=== PATIENT | female | born 1950 | race African-American/Black ===

== ENCOUNTER 2017-11-09 13:31 | Inpatient (IN) | payer MEDICARE, MEDICAID ==
[2017-11-09 15:09] LABS: #Basophils 0.1 thou/uL (0.0-0.2); #Eosinphils 0.2 thou/uL (0.0-0.7); #Lymphocytes 2.1 thou/uL (1.20-3.40); #Monocytes 0.5 thou/uL (0.11-0.59); %Eosinophils 2.1 % (0.0-10.0); %Lymphocytes 23.7 % (21.0-51.0); %Monocytes 5.6 % (0.0-10.0); %Neutrophils 67.5 % (42.0-75.0); Hemoglobin 12.2 g/dL (12.0-16.0); Mean Corpuscular HGB CONC 32.6 g/dL (32.0-36.0); Mean Corpuscular Hemoglobin 30.8 pg (27.0-31.0); Mean Corpuscular Volume 94.3 fL (78.0-98.0); Mean Platelet Volume 7.9 fL (7.4-10.4); Platelet Count 153 thou/uL (130-400); RBC Distribution Width 12.2 % (11.5-14.5); Red Blood Cell (RBC) Count 3.96 mill/uL (4.20-5.40); White Blood Cell (WBC) Count 8.9 thou/uL (4.8-10.8)
[2017-11-09 15:31] LABS: ALT (SGPT) 7 U/L (8-55); AST (SGOT) 13 U/L (5-34); Albumin 3.9 g/dL (3.4-4.8); Alkaline Phosphatase 107 U/L (40-150); Anion Gap 14 mmol/L (10-20); BUN (Urea Nitrogen) 27 mg/dL (9.8-20.1); Bilirubin, Total 0.3 mg/dL (0.2-1.2); Calc. Creatinine Clearance 0 mL/min (70-130); Calcium 9.5 mg/dL (7.8-10.44); Carbon Dioxide 26 mmol/L (23-31); Chloride 106 mmol/L (98-107); Estimated GFR-MDRD 36; Globulin 3.4 g/dL (2.4-3.5); Glucose 102 mg/dL (80-115); Magnesium 1.8 mg/dL (1.6-2.6); Phosphorus 2.8 mg/dL (2.3-4.7); Potassium 3.7 mmol/L (3.5-5.1); Protein, Total 7.3 g/dL (6.0-8.3); Sodium 142 mmol/L (136-145)
[2017-11-09 15:36] LABS: CKMB 0.7 ng/mL (0-6.6); Troponin I Less than 0.010 ng/mL (< 0.028)
--- NOTE | 2017-11-09 16:49 | CT ---
CT OF THE BRAIN WITHOUT CONTRAST: 11/09/17 INDICATION: History of cerebellar and cerebral perfusion abnormality and CVA. COMPARISON: Prior exam dated 11/02/16. FINDINGS: There is severe chronic small vessel white matter ischemic change similar. There is generalized cereb ral and cerebellar atrophy which is stable. Septum pellucidum and third ventricle are stable. There i s a small lacunar infarct involving the left cerebellar hemisphere which is stable. Mastoid air cells and paranasal sinuses are clear. Skull is intact. IMPRESSION: 1. No acute intracranial abnormality. Chronic ischemic change as above. 2. Generalized cerebral and cerebellar atrophy. POS: [facility]
[2017-11-09] MEDS ORDERED: Ondansetron HCl/PF 4 MG/2 ML Vial IVP PRN (18:10)
[2017-11-09] MEDS ORDERED: Ondansetron ODT 4 MG TAB SL PRN (18:10)
[2017-11-09 18:22] VITALS: BMI 32.4
[2017-11-09] MEDS ORDERED: Acetaminophen 325 MG TAB PO PRN (19:06)
[2017-11-09] MEDS: Sodium Chloride 0.9% 1,000 ML IV SCH (20:59)
[2017-11-09] MEDS ORDERED: Amlodipine 5 MG TAB PO SCH (21:00)
[2017-11-10 00:04] LABS: Amphetamine Not Detected (NotDetected); Barbiturates Screen Not Detected (NotDetected); Benzodiazepine Screen Not Detected (NotDetected); Cocaine Metabolite Screen Not Detected (NotDetected); Medtox Control Line Valid? VALID (VALID); Medtox Reader # READER 1; Methadone Not Detected (NotDetected); Methamphetamine Not Detected (NotDetected); Opiate Screen Not Detected (NotDetected); Oxycodone Screen Not Detected (NotDetected); Phencyclidine (PCP) Not Detected (NotDetected); THC/Cannabinoid Screen Detected (NotDetected); Tricyclic Screen Not Detected (NotDetected)
--- NOTE | 2017-11-10 00:50 | HP ---
CHIEF COMPLAINT: Possible stroke symptoms. HISTORY OF PRESENT ILLNESS: The patient is a 67-year-old female with a history of chronic kidney disease, stage 3; and hypertension; who presented via the emergency department. The patient reports that 2 days ago she had an episode of left facial drooping, some dysarthria and some slight altered mental status. The patient was encouraged to come to the emergency department, but refused. However, today she was convinced to come in for evaluation. It appears she believes that her symptoms have essentially resolved. The patient has no complaints at this time other than a cough that has been nonproductive for about a week and states that she feels generally cold. REVIEW OF SYSTEMS: Negative through a 10-point review of systems including general, ENT, GI, CV, pulmonary, , skin, neuro, psych, and Endo are all negative other than those things mentioned in the history of present illness. PAST MEDICAL HISTORY: As noted, significant for hypertension; chronic kidney disease, stage 3; dyslipidemia. PAST SURGICAL HISTORY: Hysterectomy. FAMILY HISTORY: Father had hypertension and is alive at 87. Mother in her 60s with dementia. SOCIAL HISTORY: The patient smokes 1/2-3/4 pack of cigarettes per day and has done so for 38 years. She drinks alcohol on special occasions. She does admit to the use of marijuana type drugs from time to time. She is /divorce from her . She was with her brother and grandson in an apartment. She is a retired food crops farm hand. ALLERGIES: None. MEDICATIONS: Hydrochlorothiazide 25 mg p.o. q. day and amlodipine 5 mg p.o. q. day. PHYSICAL EXAMINATION: VITAL SIGNS: Temperature 98.4, pulse 70, respirations 20, O2 sat 99%, blood pressure is 157/87. GENERAL APPEARANCE: Age appropriate female. She is in no distress. She is awake, alert, oriented, pleasant, and cooperative. HEENT: PERRL. No OP lesions. NECK: Supple and symmetric with no carotid bruits. CARDIOVASCULAR: Regular without murmurs, gallops or rubs. LUNGS: Slightly diminished, but no wheezes, rales or rhonchi noted. ABDOMEN: Soft, nontender, nondistended, positive bowel sounds. EXTREMITIES: Warm and dry with no edema. NEUROLOGIC: Mild didadodyskinesia, but otherwise no focal deficits noted. IMAGING: CT scan of the brain shows no acute intracranial abnormalities with chronic ischemic changes, some generalized cerebral and cerebellar atrophy. LABORATORY DATA: Sodium 142, potassium 3.7, chloride 106, CO2 of 26, BUN is 27 , creatinine is 1.74, glucose 102, calcium 95, phosphorus 2.8, magnesium 1.8. AST 13, ALT 7. Troponin less than 0.01, albumin 3.9. Coags normal. CBC normal. IMPRESSION AND PLAN: 1. Acute neurologic changes which have essentially resolved at this point. Unclear if this was a transient ischemic attack or stroke, but there is no evidence at this point that she had a significant infarct on the CT scan. We will keep the patient on telemetry. She did have a previous echo revealing significant left atrial enlargement, so will need to worry about atrial fibrillation. We will obtain an echocardiogram again and ultrasound of her carotids. We will consult Neurology and check a urine drug screen. Assuming all those things are acceptable again possibly be discharged as early as tomorrow. 2. History of hypertension, going to continue with her amlodipine, but hold on the hydrochlorothiazide as she may be a little volume deplete. 3. Chronic kidney disease, stage 3. Her creatinine is slightly above her usual baseline. I will give her a little bit of fluids and check her again in the morning. DISPOSITION: The patient is a FULL CODE and her daughter and granddaughter are her surrogate decision maker should they be necessary. Her PCP is Dr. Owusu. ADITI
[2017-11-10 05:19] LABS: Anion Gap 10 mmol/L (10-20); BUN (Urea Nitrogen) 26 mg/dL (9.8-20.1); Calc. Creatinine Clearance 44 mL/min (70-130); Calcium 9.6 mg/dL (7.8-10.44); Carbon Dioxide 30 mmol/L (23-31); Chloride 106 mmol/L (98-107); Cholesterol 145 mg/dl (< 200 Desired); Estimated GFR-MDRD 42; Glucose 87 mg/dL (80-115); HDL Cholesterol 49 mg/dL (>60 Neg Risk); LDL Cholesterol, Calculated 79 mg/dL; Potassium 3.5 mmol/L (3.5-5.1); Sodium 142 mmol/L (136-145); Triglycerides 87 mg/dL (Less than 150)
[2017-11-10] MEDS ORDERED: Aspirin 325 MG TAB PO SCH (09:45)
--- NOTE | 2017-11-10 10:11 | CON ---
DATE OF CONSULTATION: 11/10/2017 NEUROLOGY CONSULTATION CONSULTING PHYSICIAN: Hospitalist Service. IMPRESSION: 1. Small vessel stroke with mild right-sided weakness and transient dysarthria. 2. Hypertension. 3. Extensive small vessel ischemic changes on CT scan. 4. Tobacco abuse. PLAN: 1. Aspirin 325 mg daily. 2. Lipitor 20 mg daily. 3. Discontinue smoking. Ms. Waddell is a 67-year-old black female with a known history of hypertension and mild renal insuffi ciency. She presented with a 2-day history of dysarthria. She did not note any new weakness or numb ness. There is no associated headache, nausea, vomiting, vertigo, double vision, confusion or altera tion of consciousness. Initial CT scan of the brain did not show any evidence of acute bleed, but th ere are extensive periventricular small vessel ischemic changes. Her EKG showed normal sinus rhythm. Carotid ultrasound and echocardiogram are pending. She has no past history of coronary artery dise ase. SOCIAL HISTORY: Positive for tobacco and marijuana use. FAMILY HISTORY: Noncontributory. MEDICATIONS: Reviewed. REVIEW OF SYSTEMS: Otherwise, negative. PHYSICAL EXAMINATION: GENERAL: A well-nourished middle-aged elderly lady in no distress. VITAL SIGNS: Blood pressure 120/73, pulse 56, respirations 12 and temperature 97.7. HEENT: Pupils equal and reactive. Conjunctivae are clear. Oropharynx clear. NECK: No lymphadenopathy. EXTREMITIES: No cyanosis. NEUROLOGIC: She is alert and appropriate. Her speech is fluent and clear. Cranial nerve exam shows some mild right nasal labial fold flattening. Motor exam shows a fix on arm roll on the right side. Sensation was intact to touch. [id number] movements were slightly dysmetric on the left. She can walk independently. Sensation was intact in the extremities. LABORATORY STUDIES: Unremarkable CBC. BUN 27, creatinine is 1.74, cholesterol ratio 3.0. SUMMARY: This is a 67-year-old woman with known history of hypertension who presents with transient dysarthria and has some mild residual right-sided weakness. This is likely secondary to small vessel disease. Agree with the workup. Start her on antiplatelet and statin. Would be happy to follow up with her as an outpatient.
[2017-11-10] MEDS: Sodium Chloride 0.9% 1,000 ML IV SCH (11:30)
--- NOTE | 2017-11-10 13:45 | ULT ---
BILATERAL CAROTID DUPLEX ULTRASOUND INCLUDING COLOR AND SPECTRAL DOPPLER IMAGING: DATE: 11/10/17 HISTORY: 67-year-old female with history of TIA. FINDINGS: Mild intimal thickening and small right-sided plaque. PSV Right ICA: 66 cm/sec EDV: 21 cm/sec ICA/CCA Ratio: 0.9 PSV Left ICA: 53 cm/sec EDV: 16 cm/sec ICA/CCA Ratio: 0.8 Vertebral flow is antegrade. IMPRESSION: No hemodynamically significant stenosis. Evidence for minimal arteriosclerotic vascular disease. POS: [facility]
[2017-11-10 16:40] VITALS: BP 134/78; TEMP 98
[2017-11-10] MEDS ORDERED: Atorvastatin Calcium 20 MG TAB PO SCH (21:00)
[2017-11-11] MEDS ORDERED: Aspirin 325 MG TAB PO SCH (09:00)
--- NOTE | 2017-11-11 09:02 | DIS ---
DATE OF ADMISSION: 11/09/2017 DATE OF DISCHARGE: 11/10/2017 DISCHARGE DIAGNOSES: Transient ischemic attack; hypertension; and chronic kidney disease, stage 3. HISTORY: This patient is a 67-year-old female who presented via the emergency department. The patie nt reported that she had a history of hypertension and chronic kidney disease and 2 days prior to her being seen at the hospital. She reported that she had some episodes of left facial drooping, dysart hria, and slightly altered mental status. She did not want to come to the hospital at that time and subsequently her symptoms did fully resolve. She also had bit of a cough was present only for a week 's time, but otherwise generally well. Her exam was unremarkable and her neurologic status was intac t. HOSPITAL COURSE: Patient was placed in observation with these acute neurologic changes with a negati ve CT scan and baseline normal exam. She was kept on telemetry. She had some mild bradycardia at ti mes that resolved with any activity. Otherwise, she had no significant arrhythmias. She had a carot id Doppler, which revealed no evidence of significant carotid disease and an echocardiogram, which wa s essentially normal. The patient remained asymptomatic throughout. She was evaluated by Neurology in consultation who recommended aspirin and a statin for the patient. Her fasting lipid panel was no table for a cholesterol of 145, LDL 79, HDL 49, and triglycerides 87. The patient also had some slig ht increase in her creatinine above baseline at 1.74. She was given some fluids overnight and her cr eatinine did come back down to 1.52, which was at her baseline. DISPOSITION: Patient is discharged to home. DISCHARGE MEDICATIONS: She will be on aspirin 81 mg p.o. daily, atorvastatin 20 mg p.o. at bedtime. She will continue with her Norvasc 5 mg every day and hydrochlorothiazide 12.5 mg 1 p.o. daily. She is to be on her usual diet and her activity level is as tolerated. She is to follow up with her primary care physician in 1 week. She should return to the emergency department should she have any problems prior to that time.
== END 2017-11-10 18:12 | disposition home or self-care (01) | DRG 69 ==
LOC: ERS 13:31 → 2SE 18:16
PROVIDERS: ADMIT Internal Medicine; ATTEND Internal Medicine
DX: G45.9 Transient cerebral ischemic attack, unspecified (principal); I12.9 Hypertensive chronic kidney disease with stage 1 through stage 4 chronic kidney disease, or unspecified chronic kidney disease; N18.3 Chronic kidney disease, stage 3 (moderate); R47.1 Dysarthria and anarthria; R29.810 Facial weakness; R00.1 Bradycardia, unspecified; F17.210 Nicotine dependence, cigarettes, uncomplicated; Z79.82 Long term (current) use of aspirin; Z79.899 Other long term (current) drug therapy
CPT/HCPCS: 36415; 70450; 80048; 80053; 80061; 80306; 82553; 83735; 84100; 84484; 85025; 85610; 90471; 93005; 93306; 93880

== ENCOUNTER 2017-11-16 00:21 | Inpatient (IN) | payer MEDICARE, MEDICAID ==
[2017-11-16] MEDS ORDERED: Naloxone HCl 0.4 mg/ml Vial ONE ×2 (01:01→01:05)
[2017-11-16] MEDS ORDERED: Succinylcholine Chloride 20 MG/ML 10 ml SYRINGE FS ONE (01:10)
[2017-11-16 01:20] LABS: Bilirubin Negative (Negative); Blood, Urine Negative (Negative); Clarity CLEAR (Clear); Glucose, Urine (Dipstick) Negative (Negative); Leukocyte Negative (Negative); Nitrite Negative (Negative); Protein, Urine (Dipstick) 30 mg/dL (Neg-Trace); Specific Gravity, Urine 1.025 (1.002-1.036)
[2017-11-16 01:24] LABS: ALT (SGPT) 13 U/L (8-55); AST (SGOT) 20 U/L (5-34); Albumin 4.1 g/dL (3.4-4.8); Alkaline Phosphatase 110 U/L (40-150); Anion Gap 13 mmol/L (10-20); BUN (Urea Nitrogen) 25 mg/dL (9.8-20.1); Bilirubin, Total 0.2 mg/dL (0.2-1.2); Calc. Creatinine Clearance 0 mL/min (70-130); Calcium 9.5 mg/dL (7.8-10.44); Carbon Dioxide 25 mmol/L (23-31); Chloride 107 mmol/L (98-107); Estimated GFR-MDRD 38; Globulin 3.8 g/dL (2.4-3.5); Glucose 155 mg/dL (80-115); Magnesium 1.6 mg/dL (1.6-2.6); Potassium 3.7 mmol/L (3.5-5.1); Protein, Total 7.9 g/dL (6.0-8.3); Sodium 141 mmol/L (136-145)
[2017-11-16] MEDS ORDERED: Propofol 1,000 MG/100 ML VIAL IV ONE (01:28)
[2017-11-16 01:29] LABS: CKMB 0.5 ng/mL (0-6.6); Troponin I Less than 0.010 ng/mL (< 0.028)
[2017-11-16 01:30] LABS: Amphetamine Not Detected (NotDetected); Barbiturates Screen Not Detected (NotDetected); Benzodiazepine Screen Not Detected (NotDetected); Cocaine Metabolite Screen Not Detected (NotDetected); INR-International Normal Ratio 0.9; Medtox Control Line Valid? VALID (VALID); Medtox Reader # READER 4; Methadone Not Detected (NotDetected); Methamphetamine Not Detected (NotDetected); Opiate Screen Not Detected (NotDetected); Oxycodone Screen Not Detected (NotDetected); Phencyclidine (PCP) Not Detected (NotDetected); Prothrombin Time 12.7 SEC (12.0-14.7); THC/Cannabinoid Screen Detected (NotDetected); Tricyclic Screen Not Detected (NotDetected)
[2017-11-16 01:35] LABS: Hemoglobin 12.6 g/dL (12.0-16.0); Mean Corpuscular HGB CONC 31.7 g/dL (32.0-36.0); Mean Corpuscular Hemoglobin 30.5 pg (27.0-31.0); Mean Corpuscular Volume 96.3 fL (78.0-98.0); Mean Platelet Volume 9.3 fL (7.4-10.4); Platelet Count 168 thou/uL (130-400); RBC Distribution Width 12.5 % (11.5-14.5); Red Blood Cell (RBC) Count 4.12 mill/uL (4.20-5.40); White Blood Cell (WBC) Count 15.8 thou/uL (4.8-10.8)
[2017-11-16 01:45] LABS: #Basophils 0.1 thou/uL (0.0-0.2); #Eosinphils 0.3 thou/uL (0.0-0.7); #Lymphocytes 4.3 thou/uL (1.20-3.40); #Monocytes 0.7 thou/uL (0.11-0.59); #Neutrophils 10.4 thou/uL (1.40-6.50); %Basophils 0.5 % (0.0-1.0); %Eosinophils 1.7 % (0.0-10.0); %Lymphocytes 27.3 % (21.0-51.0); %Monocytes 4.6 % (0.0-10.0); RBC Morphology Normal
[2017-11-16] MEDS ORDERED: Fentanyl 100 MCG/2 ML VIAL ONE ×2 (01:49→02:27)
[2017-11-16 01:55] LABS: Actual Bicarbonate (HCO3a) 25.2 mEq/L (22-28); Base Excess (BEa) -1.1 mEq/L (-2.0 to +3.0); CO2 Tension 48.4 mmHg (35.0-45.0); Hematocrit-ABG 39.3 % (36.0-47.0); Hemoglobin (Hb) 12.1 g/dL (12.0-16.0); O2 Tension (PaO2) 77.3 mmHg (> 80.0); pH, Arterial 7.33 (7.35-7.45)
[2017-11-16 01:56] LABS: Calcium, Ionized 1.2 mmol/L (1.12-1.30); Puncture Site LRA
[2017-11-16] MEDS ORDERED: Albuterol Sulfate 1.25 MG/3 ML NEB NEB PRN (02:17)
[2017-11-16] MEDS ORDERED: Ondansetron HCl/PF 4 MG/2 ML Vial IVP PRN (02:22)
[2017-11-16] MEDS ORDERED: DISCONTINUE PREVIOUS NARCOTIC PAIN MEDICATIONS AND BENZODIAZEPINES FS SCH (03:12)
[2017-11-16] MEDS ORDERED: Fentanyl BOLUS 250 ML IVPB PRN ×2 (03:12→03:32)
[2017-11-16] MEDS ORDERED: Lorazepam 2 MG/ML VIAL SLOW IVP PRN (03:12)
[2017-11-16] MEDS ORDERED: fentaNYL Citrate/PF 2,000 MCG in Sodium Chloride 0.9% 60 ML IV SCH ×2 (03:12→03:32)
[2017-11-16] MEDS ORDERED: Propofol 1,000 MG/100 ML VIAL IV PRN (03:12)
[2017-11-16] MEDS ORDERED: Propofol BOLUS 1,000 MG/100 ML VIAL IV PRN ×2 (03:12→03:32)
[2017-11-16] MEDS: Sodium Chloride 0.9% 1,000 ML IV SCH ×3 (03:43→20:56)
[2017-11-16] MEDS ORDERED: Fleet Enema 133 ML BOT PR PRN (06:56)
[2017-11-16] MEDS ORDERED: Artificial Tear Sol 15 ML BOT EA EYE PRN (06:56)
[2017-11-16] MEDS ORDERED: Metoclopramide HCl 10 MG/2 ML VIAL IVP PRN (06:56)
[2017-11-16] MEDS ORDERED: hydrALAZINE 20 MG/ML VIAL SLOW IVP PRN (06:56)
[2017-11-16] MEDS ORDERED: Eucerin (Mineral Oil/Petrolatum,White) 30 gm Jar TOP PRN (06:56)
[2017-11-16] MEDS: niCARdipine HCl 25 MG in Sodium Chloride 0.9% 250 ML 240 ML IVPB SCH ×2 (07:10→22:19)
--- NOTE | 2017-11-16 08:25 | RAD ---
CHEST 1 VIEW: HISTORY: Chest pain. COMPARISON: Radiograph from 2014. FINDINGS: The heart size is mildly enlarged. The endotracheal tube tip appears to be near the level of the cla vicles, although not well seen. The enteric tube tip also is not well seen but likely epigastric bod y. The pulmonary arteries are enlarged. Heart size is enlarged. Mild pulmonary venous congestion. IMPRESSION: 1. Endotracheal tube tip likely at the level of the clavicles. 2. Enteric tube tip likely at the level of the gastric body. 3. Cardiomegaly, pulmonary arterial hypertension, and mild pulmonary venous congestion. POS: [facility]
--- NOTE | 2017-11-16 08:34 | HP ---
CODE STATUS: FULL CODE. TIME OF EVALUATION: 2:10 a.m. PRIMARY CARE PHYSICIAN: [facility]. CHIEF COMPLAINT: The patient presented with stroke-like symptoms. HISTORY OF PRESENT ILLNESS: This is a 67-year-old female patient with past medical history of hypertension, came to the hospital after having reported stroke-like symptoms affecting the right side, with no clear triggers, no alleviating factors, the symptoms were reported as moderate. The patient was admitted to the ER with change in mental status, decision was to give the patient tPA, she is receiving tPA right now. Patient has tolerated well, has started to move the right side. Due to acute encephalopathy, concern for airway , the patient was intubated, she is going to be placed in ICU, will follow tPA protocol. REVIEW OF SYSTEMS: Unable to obtain. The patient is sedated and intubated. PAST MEDICAL HISTORY: Hypertension. PAST SURGICAL HISTORY: No surgical history found in records. PSYCHIATRIC HISTORY: No psych history found in records. SOCIAL HISTORY: The patient has a history of drug abuse, K2, tobacco. Patient smokes half a pack per day. FAMILY HISTORY: No significant family history was reported. ALLERGIES: No known drug allergies. REPORTED HOME MEDICATION: Amlodipine and hydrochlorothiazide. PHYSICAL EXAMINATION: VITAL SIGNS: During presentation, the patient had blood pressure of 125/75 with heart rate in the 90s, patient is intubated with normal respiratory rate. No fevers. GENERAL APPEARANCE: Patient is sedated, intubated, now she is waking up, moving all 4 extremities. HEENT: Eyes: Normal conjunctivae. Moist oral mucosa. Anicteric. NECK: No JVD. RESPIRATORY: Bilateral air entry. Patient is intubated. No rales, no wheezing. Symmetric expansion. CARDIOVASCULAR: Normal rate, regular rhythm. No murmurs. No gallop. No edema. ABDOMEN: Soft, normal bowel sounds. MUSCULOSKELETAL: Baseline range of motion and strength. Looks like recover from deficit on presentation. SKIN: Warm and intact. No pallor, no rash, no redness. NEUROLOGIC: The patient intubated, sedated, unable to fully explore. Patient is moving all four extremities. There is a change compared to initial presentation with right-sided weakness. PSYCHIATRIC: Unable to score. LABORATORY AND DIAGNOSTIC DATA: Reviewed. The patient has white count of 15.8 , hemoglobin 12.6, platelet count 168,000. Coagulation was normal. Blood gas pH 7.33, pCO2 of 48, pO2 of 77. This was done after intubation with SIMV mode, rate of 12, 30% oxygen, tidal volume 500, pressure support of 10 and PEEP 5. Chemistry: Sodium was 141, potassium 3.7, chloride 107, carbon dioxide 25, anion gap 13, BUN 25, creatinine 1.66 compared with the previous creatinine, it was normal. Glucose 155. Troponin was negative. Beta-natriuretic peptide 329 , globulin 3.8, albumin globulin ratio 1.1. Urine color was normal. Rest of urine was negative. Toxicology was negative except for cannabinoids were detected. CT angio and brain CT were reviewed and discussed with performing physician from ER preliminary report showed no significant obstructive thrombus. Brain CT reported possible acute versus subacute changes in the brain , likely related to stroke. X-ray post-intubation was done, the patient has clear lungs, ET tube in about 2 inches above the leanna. Heart signs, mild increase. No evidence of focal consolidation, the official report from radiology, it needs to be followed. ASSESSMENT AND PLAN: The patient was placed in the hospital for the following medical condition: 1. Acute stroke, status post cerebrovascular accident, monitor in ICU, monitored for any complications. We will address accordingly. Stroke protocol to be followed. Neuro has been called from the ER. No further recommendations. 2. Acute encephalopathy on presentation to acute stroke, the patient intubated and sedated. 3. Inability to protect airway the reason why patient was intubated. We will need pulmonary web marketing assistant in the morning to help us with the vent management. 4. Controlled hypertension, reconciled home meds. Adjust treatment as needed. 5. History of chronic kidney disease, recently stable, monitor, we will adjust treatment as needed. 6. Dyslipidemia, low cholesterol diet is advised. Reconciled home meds. Critical care time spent more than 35 minutes in bedside assessment, coordination of care, review and elaboration of record. ADITI
[2017-11-16] MEDS ORDERED: Famotidine/PF 20 mg/2ml Vial SLOW IVP SCH (09:00)
[2017-11-16] MEDS: Hydrochlorothiazide 25 MG TAB PER TUBE SCH (09:07)
[2017-11-16] MEDS: Lorazepam 2 MG/ML VIAL SLOW IVP PRN ×2 (09:10→17:01)
[2017-11-16] MEDS: Propofol 1,000 MG/100 ML VIAL IV PRN ×4 (09:14→22:47)
--- NOTE | 2017-11-16 10:10 | CT ---
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 COMPARISON: No relevant prior studies available. FINDINGS: Diffuse cerebral volume loss. Extensive chronic small vessel disease. Asymmetric hypodensity adjacent to the atrium of the right lateral ventricle. Subtle small hypodensity of the right temporal pole and anterior insula inferiorly seen in images 13. Remote infarct in the left occipital lobe. No intracranial hemorrhage or hydrocephalus. No mass, mass effect or midline shift. No effacement of the ventricles, cortical sulci and basal cisterns. Bill-white matter differentiation is preserved. Atherosclerosis of the intracranial vasculature. No dense MCA sign. Orbits are unremarkable. Paranasal sinuses are clear. Mastoid air cells are clear. Multiple periapical lucencies. No acute fracture. Soft tissues unremarkable. IMPRESSION: 1. Extensive chronic small vessel disease with asymmetric hypodensity adjacent to the atrium of the r ight lateral ventricle which may represent superimposed acute to subacute infarct. 2. Subtle small hypodensity of the right temporal pole and anterior insula inferiorly as described ab ove. Finding may be artifact or secondary to acute ischemia. 3. Correlate clinically and recommend MRI for further evaluation. Thank you for allowing us to participate in the care of your patient. Dictated and Authenticated by: Marques Lama MD 11/16/2017 12:47 AM Central Time ([place] & [place]) CT OF BRAIN WITHOUT CONTRAST: HISTORY: Stroke alert. Last seen normal at 20 minutes prior to arrival. COMPARISON: CT 11/09/17. FINDINGS: No acute hemorrhage. No midline shift or mass effect. Moderate microvascular ischemic changes. IMPRESSION: Findings and impression are concordant with the preliminary report. Code QA. POS: [facility]
[2017-11-16] MEDS ORDERED: Pantoprazole 40 MG VIAL IVP SCH (10:15)
--- NOTE | 2017-11-16 10:29 | CT ---
PRELIMINARY REPORT/[facility]/EMERGENTY AFTER-HOURS PROCEDURE Addendum created by Diogo Garvin MD on 11/16/2017 2:08 AM Central Time ([place] & [place]) Findings were dis cussed with Dr. Greenwood at 11/16/2017 2:04 AM CDT. 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 MIP reconstructed images were created and reviewed. COMPARISON: No relevant prior studies available. FINDINGS: VASCULATURE: Right common carotid artery: Normal. No significant stenosis. No dissection or occlusion. Right internal carotid artery: There is mild atherosclerotic calcification at the RIGHT carotid bulb without significant stenosis. No dissection or occlusion. Right external carotid artery: Normal. No occlusion. Right vertebral artery: Normal. No significant stenosis. No dissection or occlusion. Left common carotid artery: Normal. No significant stenosis. No dissection or occlusion. Left internal carotid artery: Normal. Extracranial segment is patent with no significant stenosis. No dissection or occlusion. Left external carotid artery: Normal. No occlusion. Left vertebral artery: Normal. No significant stenosis. No dissection or occlusion. Other vasculature: The aorta demonstrates mild atherosclerotic calcification. NECK: Bones/joints: No acute fracture. No dislocation. Soft tissues: Unremarkable as visualized. No mass. CAROTID STENOSIS REFERENCE USING NASCET CRITERIA: % ICA stenosis = (1 - narrowest ICA diameter/diameter of distal cervical ICA) x 100. Mild - <50% stenosis. Moderate - 50-69% stenosis. Severe - 70-94% stenosis. Near occlusion - 95-99% stenosis. Occluded - 100% stenosis. IMPRESSION: No acute findings. CT Angiography Head With Intravenous Contrast EXAM DATE/TIME: Exam ordered 11/16/2017 12:40 AM TECHNIQUE: Axial computed tomographic angiography images of the head with intravenous contrast using CT angiogra phy protocol. COMPARISON: No relevant prior studies available. FINDINGS: Right internal carotid artery: No acute findings. Intracranial segment is patent with no significant stenosis. No aneurysm. Right anterior cerebral artery: Normal. No occlusion or significant stenosis. No aneurysm. Right middle cerebral artery: Normal. No occlusion or significant stenosis. No aneurysm. Right posterior cerebral artery: Normal. No occlusion or significant stenosis. No aneurysm. Right vertebral artery: Unremarkable as visualized. Left internal carotid artery: No acute findings. Intracranial segment is patent with no significant s tenosis. No aneurysm. Left anterior cerebral artery: Normal. No occlusion or significant stenosis. No aneurysm. Left middle cerebral artery: Normal. No occlusion or significant stenosis. No aneurysm. Left posterior cerebral artery: Normal. No occlusion or significant stenosis. No aneurysm. Left vertebral artery: Unremarkable as visualized. Basilar artery: Normal. No occlusion or significant stenosis. No aneurysm. Brain: There is hypoattenuation in the posterior RIGHT parietal lobe lobe probably representing encep halomalacia from chronic infarction versus slightly asymmetric sulcal prominence. IMPRESSION: No large intracranial artery occlusion, dissection or aneurysm. Thank you for allowing us to participate in the care of your patient. Dictated and Authenticated by: Diogo Garvin MD 11/16/2017 2:07 AM Central Time ([place] & [place]) FINAL REPORT CT ANGIOGRAM HEAD WITH CONTRAST CT ANGIOGRAM NECK WITH CONTRAST: Date: 11/16/17 HISTORY: Stroke alert. Last seen normal 20 minutes prior to arrival. COMPARISON: CT brain same date. TECHNIQUE: CT angiogram of head and neck performed after the intravenous administration of contrast. 3D renderin g provided. FINDINGS/IMPRESSION: Findings and impression are concordant with the preliminary report by Daniel. In addition, there are innumerable periapical lucencies around the remaining teeth. Nonemergent denta l consultation is advised. POS: [facility]
--- NOTE | 2017-11-16 11:26 | PDOC.PN ---
- Subjective Encounter Start Date: 11/16/17 Encounter Start Time: 07:00 -: old records requested/rev pt is intubated this morning, pt's daughter and granddaughter was in room and I got history from them, she was given Tpa last night for acute CVA, - Objective Resuscitation Status: Resuscitation Status FULL:Full Resuscitation MAR Reviewed: Yes Vital Signs & Weight: Vital Signs (12 hours) Temp Pulse Resp BP Pulse Ox 11/16/17 10:49 85 116/76 11/16/17 08:00 11 L 11/16/17 07:02 97 161/107 H 11/16/17 07:00 98.1 F 11/16/17 06:00 16 11/16/17 04:00 98 F 18 11/16/17 03:36 88 11/16/17 02:55 98 F 88 16 98 Weight Weight 168 lb 3.403 oz Most Recent Monitor Data Heart Rate from ECG 65 NIBP 122/66 NIBP BP-Mean 100 Respiration from ECG 4 SpO2 100 I&O: 11/15/17 11/16/17 11/17/17 06:59 06:59 06:59 Intake Total 341 Output Total 1175 600 Balance -834 -600 Result Diagrams: 11/16/17 01:00 11/16/17 01:00 Radiology Reviewed by me: Yes (CT brain, CT angiography, Chest xray reviewed) EKG Reviewed by me: Yes (nsr) Phys Exam - Physical Examination Constitutional: NAD intubated, sedated HEENT: PERRLA, sclera anicteric Neck: no JVD, supple Respiratory: no wheezing, no rales, no rhonchi Cardiovascular: RRR, no significant murmur, no rub Gastrointestinal: soft, no distention, positive bowel sounds Musculoskeletal: no edema, pulses present unable to assess due to intubated Lymphatic: no nodes Deviation from normal: unable to assess Skin: no rash, normal turgor Dx/Plan (1) Acute CVA (cerebrovascular accident) Code(s): I63.9 - CEREBRAL INFARCTION, UNSPECIFIED Status: Acute (2) Acute respiratory failure Code(s): J96.00 - ACUTE RESPIRATORY FAILURE, UNSP W HYPOXIA OR HYPERCAPNIA Status: Acute Comment: pt is intubated for airway protection (3) Encephalopathy acute Code(s): G93.40 - ENCEPHALOPATHY, UNSPECIFIED Status: Acute (4) CKD (chronic kidney disease) stage 3, GFR 30-59 ml/min Code(s): N18.3 - CHRONIC KIDNEY DISEASE, STAGE 3 (MODERATE) Status: Chronic (5) Cannabis abuse Code(s): F12.10 - CANNABIS ABUSE, UNCOMPLICATED Status: Chronic (6) Dyslipidemia Code(s): E78.5 - HYPERLIPIDEMIA, UNSPECIFIED Status: Chronic (7) HTN (hypertension) Code(s): I10 - ESSENTIAL (PRIMARY) HYPERTENSION Status: Chronic - Plan cont current plan of care, plan discussed w/ family * pulmonary consulted for vent management * hopefully will consider weaning and extubation soon * neurology consulted * will start her selected home meds via tube * MRI ordered * will monitor in CCU tonight after TPA * once extubated, then will consider transfer to stroke floor * stroke team evaluation after extubation * may need rehab on discharge * discussed with family bedside * medication reviewed as below * symptomatic treatment. Review of Systems - Review of Systems Other: unable to review due to intubated status - Medications/Allergies Allergies/Adverse Reactions: Allergies Allergy/AdvReac Type Severity Reaction Status Date / Time No Known Drug Allergies Allergy Verified 11/16/17 03:04 Medications: Current Medications Acetaminophen (Tylenol) 650 mg AR Q6H PRN PRN Reason: Headache/Fever or Pain Albuterol Sulfate (Albuterol Sulfate) 1.25 mg NEB Q4H PRN PRN Reason: Wheezing Amlodipine Besylate (Norvasc) 5 mg PER TUBE QPM CYRIL Artificial Tears (Tears Renewed 15ml Bottle) 0 drop EA EYE PRN PRN PRN Reason: Dry Eyes Atorvastatin Calcium (Lipitor) 20 mg PO HS CYRIL Bisacodyl (Dulcolax) 10 mg AR DAILYPRN PRN PRN Reason: Constipation Hydralazine HCl (Apresoline) 10 mg SLOW IVP Q4H PRN PRN Reason: Systolic BP > 180 Hydrochlorothiazide (Hydrochlorothiazide) 12.5 mg PER TUBE QAM CYRIL Last Admin: 11/16/17 09:07 Dose: 12.5 mg Sodium Chloride (Normal Saline 0.9%) 1,000 mls @ 100 mls/hr IV .Q10H CYRIL Last Admin: 11/16/17 03:43 Dose: 1,000 mls Nicardipine HCl 25 mg/ Sodium (Chloride) 250 mls @ 0 mls/hr IVPB INF CYRIL; Titrate PRN Reason: Protocol Last Admin: 11/16/17 07:10 Dose: 250 mls Fentanyl Citrate 2,000 mcg/ (Sodium Chloride) 100 mls @ 0 mls/hr IV INF CYRIL; Per Protocol PRN Reason: Protocol Stop: 12/16/17 03:32 Fentanyl Citrate (Fentanyl Bolus) 250 mls @ 0 mls/hr IVPB PRN PRN; As Directed PRN Reason: Breakthrough pain/agitation Stop: 12/16/17 03:32 Labetalol HCl (Normodyne) 20 mg SLOW IVP Q4H PRN PRN Reason: Systolic BP > 180 Lorazepam (Ativan) 2 mg SLOW IVP Q1H PRN PRN Reason: Breakthrough agitation Stop: 12/16/17 03:32 Last Admin: 11/16/17 09:10 Dose: 2 mg Metoclopramide HCl (Reglan) 5 mg IVP Q4H PRN PRN Reason: Nausea Mineral Oil/White Petrolatum (Eucerin Cream) 0 gm TOP BIDPRN PRN PRN Reason: Dry Skin Morphine Sulfate (Morphine Sulfate) 2 mg SLOW IVP Q1H PRN PRN Reason: BREAKTHROUGH PAIN/AGITATION Stop: 12/16/17 03:32 Ondansetron HCl (Zofran) 4 mg IVP Q6H PRN PRN Reason: Nausea/Vomiting Pantoprazole Sodium (Protonix) 40 mg IVP DAILY CYRIL Pantoprazole Sodium (Protonix) 40 mg IVP NOW CYRIL Stop: 11/16/17 12:00 Propofol (Diprivan) 1,000 mg IV INF PRN; Protocol PRN Reason: TO ACHIEVE GOAL RASS Stop: 12/16/17 03:32 Last Admin: 11/16/17 09:14 Dose: 1,000 mg Propofol (Diprivan Bolus) 20 mg IV Q5MIN PRN PRN Reason: BREAKTHROUGH AGITATION Stop: 12/16/17 03:32 Sodium Biphosphate/Sodium Phosphate (Fleet Enema) 133 ml AR ONE PRN PRN Reason: Constipation Stop: 11/23/17 06:57
--- NOTE | 2017-11-16 12:32 | CON ---
DATE OF CONSULTATION: 11/16/2017 CHIEF COMPLAINT: Acute ischemic stroke, status post t-PA. HISTORY OF PRESENT ILLNESS: The patient is on vent and sedated and history is mainly obtained from nursing staff and the chart. The patient is a 67-year-old lady with known history of hypertension and K2 drug abuse and tobacco use. She was brought to the hospital after having a sudden onset of stroke-like symptoms involving her left-sided motor deficits and the concern was for possible stroke and her NIH scale apparently was high; per ER doctors examination, patient had left-sided weakness with strength of 4/5 to the left upper extremity and lower extremity and the patient was given IV t-PA and was admitted into the ICU after intubation. She is on propofol and Ativan for sedation. She also apparently had right facial droop and left-sided facial droop per ER notes and the diagnosis of CVA was made. During sedation vacation the patient is moving both extremities and seems agitated per nursing staff. Since admission to the hospital she has had a CT angiography of the head and neck area which did not show any occlusive disease and her CT scan of the head does show diffuse cerebral volume loss, chronic small vessel disease, asymmetric hypodensity adjacent to the atrium of the right lateral ventricle and subtle small hypodensity in the right temporal pole and anterior insula and her further workup is pending including MRI of the brain for evaluation of acute CVA. LABORATORY DATA: White count is 15.8, hemoglobin 12.6, hematocrit 39.7, platelets are 168. PT is 12.7, INR 0.9. Chemistry: Sodium 141, potassium 3.7 , chloride 107, bicarbonate 25, BUN 25, creatinine 1.66, glucose 155. BNP 329.8. TSH is 2.78. REVIEW OF SYSTEMS: Unable to obtain due to her being intubated and sedated. CURRENT MEDICATIONS: At the hospital; atorvastatin 20 mg per day. She is on albuterol nebulizer and also she is on amlodipine daily at a dose of 5 mg per NG tube and she is on propofol and Ativan. FAMILY HISTORY: Per the patient's chart is unknown. SOCIAL HISTORY: She has history of drug use and use of K2 in the past, even in the ER physician's note. PAST MEDICAL HISTORY: Previous medical history does include history of hypertension and no clear family history is recorded. PHYSICAL EXAMINATION: VITAL SIGNS: Blood pressure was 116/76, pulse 85, temperature 98.2 and she is on ventilator and she is intubated. CHEST: Clear vesicular breathing. CARDIOVASCULAR: S1, S2 heard, no murmurs. ABDOMEN: Seems soft, no organomegaly noted. NEUROLOGICAL: No response to any stimuli. Pupils are 1 mm, sluggishly reactive to light. I did not see any facial asymmetry. Deep tendon reflexes were absent.Unable to perform sensory and cerebellar examination. GAIT not testable. IMPRESSION: The patient is a 67-year-old lady who is currently intubated and ventilated plus sedated; therefore, my examination neurologically is unreliable at this time. Per staff the patient does wake up and move both sides of the body, gets quite agitated when off sedation. The patient has presented with left-sided weakness for which she has received IV t-PA last night in the ER. At this time she is pending her further workup including an MRI of the brain, plain CT of the head did show some chronic microvascular changes plus possible subacute CVA as well. Diagnosis is most consistent with acute cerebrovascular accident and possible hypertensive encephalopathy which can sometimes explain the altered mental status when off sedation. RECOMMENDATIONS: Continue to protect her airway and continue current sedation for now and I will review her MRI scan and further reports including echocardiogram when completed. I will follow up the patient with you. ADITI
--- NOTE | 2017-11-16 19:11 | CON ---
DATE OF CONSULTATION: 11/16/2017 SERVICE: Pulmonary Medicine. REASON FOR CONSULTATION: Intubate the patient. HISTORY OF PRESENT ILLNESS: The patient is a 67-year-old female with past medical history significant for hypertension, who was in her usual state of health after having onset of some sort of stroke-like symptoms. She presented to the emergency department. Initial CT of the head did not demonstrate any significant pathology or blood. As such, she administered a dose of TPA. She was tucked in the ICU on mechanical ventilation. Whenever we interrupt sedation, she becomes extraordinarily agitated. As such, she has been put back down a couple of times. She is moving bilateral upper and lower extremities. There were otherwise no significant events. PAST MEDICAL HISTORY: Hypertension. PAST SURGICAL HISTORY: Unknown, but none with record. SOCIAL HISTORY: She has a history of smoking spice. She also uses tobacco. The family denies any other illicit drugs or significant alcohol use. FAMILY HISTORY: Noncontributory. ALLERGIES: No known drug allergies. MEDICATIONS: List of inpatient medications were reviewed. Multiple updates were made. REVIEW OF SYSTEMS: This cannot be obtained as the patient is under the influence of sedation and is intubated. PHYSICAL EXAMINATION: VITAL SIGNS: Afebrile, pulse 92, blood pressure 134/77, respirations 18, saturation 100% on 21% FiO2 and a PEEP of 5. GENERAL: The patient sedated and intubated. HEENT: Normocephalic, atraumatic. Sclerae are white. Conjunctivae pink. Oral mucosa is moist without lesions. The left and right pupil are equal, round , and reactive. The right pupil is ever so slightly more sluggish. That being said, it is symmetric. LUNGS: Excellent air entry with no prolonged expiratory phase, wheezing, rhonchi or crackles. HEART: Normal rate, regular. ABDOMEN: Soft, nontender, nondistended. Bowel sounds are positive. MUSCULOSKELETAL: No cyanosis or clubbing. There is no pitting in the bilateral lower extremities. NEUROLOGIC: She withdraws from noxious stimuli in the left lower extremity and left upper extremity. The right lower extremity and right upper extremity do not withdraw from noxious stimuli, though she is on significant amounts of propofol currently. She seems to shrug if not posture with the noxious stimuli to the left upper extremity. I have the feeling is more purposeful as she does not have the exact appearance of decorticate posturing. She is overbreathing the ventilator and demonstrates a very nice cough and gag. LABORATORY DATA: WBC 15.8, hemoglobin 12.6, platelets 168,000. INR 0.9. pH 7.33, pCO2 of 48, pO2 77. She was on 30% FiO2 at that time. Creatinine 1.66, which is just above baseline. BUN 25. Basic metabolic profile and liver function studies are otherwise unremarkable. BNP 329. Troponin is negative x1. TSH falls within the normal limits. Urinalysis is unremarkable. Urine tox screen is positive for cannabinoids. IMAGING: Chest x-ray demonstrates endotracheal tube with the tip roughly 4 cm above the level of leanna. There is an enteric catheter coursing below the level of the diaphragm in the midline. Pulmonary vascular congestion is identified. CTA of the brain demonstrates no large intracranial arterial occlusion, dissection or aneurysm is identified. ASSESSMENT: 1. Spell. 2. Cerebrovascular accident, possible, status post TPA. 3. Metabolic encephalopathy. 4. Hypertension. 5. Chronic kidney disease, stage 3. PLAN: We will leave the patient on propofol. We will try to wean it tomorrow morning. If she meets criteria in the morning, we will consider her for extubation. Otherwise, supportive management will be continued. We will gently hydrate the patient over the next 24 hours and work on controlling her blood pressure. CRITICAL CARE TIME: 30 minutes. ADITI
[2017-11-16] MEDS: Amlodipine 5 MG TAB PER TUBE SCH (20:56)
[2017-11-16] MEDS: Atorvastatin Calcium 20 MG TAB PO SCH (20:56)
[2017-11-17] MEDS: Propofol 1,000 MG/100 ML VIAL IV PRN ×3 (03:06→14:30)
[2017-11-17] MEDS: niCARdipine HCl 25 MG in Sodium Chloride 0.9% 250 ML 240 ML IVPB SCH ×2 (03:58→16:20)
[2017-11-17] MEDS: Sodium Chloride 0.9% 1,000 ML IV SCH ×2 (09:01→16:20)
[2017-11-17] MEDS: Hydrochlorothiazide 25 MG TAB PER TUBE SCH (09:01)
[2017-11-17] MEDS: Pantoprazole 40 MG VIAL IVP SCH (09:01)
[2017-11-17] MEDS: Lorazepam 2 MG/ML VIAL SLOW IVP PRN (09:02)
--- NOTE | 2017-11-17 09:40 | PRG ---
DATE OF SERVICE: 11/17/2017 SERVICE: Pulmonary Medicine. INTERVAL HISTORY: The patient is doing okay from a respiratory standpoint. Neurologically, however, things have changed a little bit overnight. She had a sedation holiday this morning. She became extremely wild, tachycardic and hypertensive. As such, she was put back down with a little bit of propofol. She cannot provide any additional elements of the history. Otherwise, there were no significant events overnight. PHYSICAL EXAMINATION: VITAL SIGNS: Afebrile, pulse 113, blood pressure 162/136, respirations 33, saturation 100% on 21% FiO2 and a PEEP of 5. GENERAL: Patient is intubated and sedated. HEENT: Normocephalic, atraumatic. Sclerae are white, conjunctivae pink. Oral mucosa moist without lesions. LUNGS: Excellent air entry. There are some rhonchi present. No prolonged expiratory phase, wheezing or crackles are appreciated. HEART: Tachycardic. Regular. ABDOMEN: Soft, nontender and nondistended. Bowel sounds are positive. MUSCULOSKELETAL: No cyanosis or clubbing. There is no pitting in the bilateral lower extremities. NEUROLOGIC: Left pupil is fixed and no longer responding. It is dilated compared to the right side which is responsive to light. The left arm postures with noxious stimuli. That being said, the bilateral lower extremities and right upper extremity all withdraw from noxious stimuli. She is overbreathing the ventilator, has a good cough and gag. IMAGING DATA: Echocardiogram demonstrates 60% -65% ejection fraction, normal left atrium, impaired relaxation, consistent with diastolic dysfunction and mild valvular abnormalities. There is a small generalized pericardial effusion noted. No thrombus in the cardiac chambers. ASSESSMENT: 1. Spell. 2. Cerebrovascular accident, possible cerebrovascular accident, status post TPA. 3. Metabolic encephalopathy. 4. Hypertension. 5. Chronic kidney disease, stage 3. DISCUSSION AND PLAN: We will go down for MRI today and see what suggests. If there is no lesion identified, we will try putting her on Precedex and weaning the propofol away. We will see if we can make her calm on a spontaneous breathing trial and preparation for extubation. If on the other hand, there is a culprit lesion identified. We will move towards fixing it once we identify it. We will continue our generalized supportive measures. She will remain on mechanical ventilation until we have a clear clarification of what is going on inside her brain. Critical care time: 30 minutes. ADITI
--- NOTE | 2017-11-17 11:50 | PDOC.PN ---
- Subjective Encounter Start Date: 11/17/17 Encounter Start Time: 10:00 Patient seen and examined. pt is intubated, No overnight events - Objective Resuscitation Status: Resuscitation Status FULL:Full Resuscitation MAR Reviewed: Yes Vital Signs & Weight: Vital Signs (12 hours) Temp Pulse Resp BP Pulse Ox 11/17/17 11:33 87 145/83 H 11/17/17 08:00 98.1 F 77 12 97 11/17/17 06:42 75 110/63 11/17/17 06:00 17 11/17/17 04:00 98.4 F 11 L 11/17/17 03:10 98 11/17/17 02:00 19 11/17/17 00:00 99.0 F 18 Weight Admit Weight 168 lb 3.392 oz Weight 168 lb 3.403 oz Most Recent Monitor Data Heart Rate from ECG 69 NIBP 118/65 NIBP BP-Mean 75 Respiration from ECG 11 SpO2 97 I&O: 11/16/17 11/17/17 11/18/17 06:59 06:59 06:59 Intake Total 341 3386 Output Total 1175 4905 320 [facility] -834 -1519 -320 Result Diagrams: 11/16/17 01:00 11/16/17 01:00 Radiology Reviewed by me: Yes (mri) EKG Reviewed by me: Yes (nsr) Phys Exam - Physical Examination Constitutional: NAD intubated HEENT: PERRLA, sclera anicteric Neck: no JVD, supple Respiratory: no wheezing, no rales, no rhonchi Cardiovascular: RRR, no significant murmur, no rub Gastrointestinal: soft, no distention, positive bowel sounds Musculoskeletal: no edema, pulses present unable to assess Lymphatic: no nodes Deviation from normal: unable to assess Skin: no rash, normal turgor Dx/Plan (1) Acute CVA (cerebrovascular accident) Code(s): I63.9 - CEREBRAL INFARCTION, UNSPECIFIED Status: Acute (2) Acute respiratory failure Code(s): J96.00 - ACUTE RESPIRATORY FAILURE, UNSP W HYPOXIA OR HYPERCAPNIA Status: Acute Comment: pt is intubated for airway protection (3) Encephalopathy acute Code(s): G93.40 - ENCEPHALOPATHY, UNSPECIFIED Status: Acute (4) CKD (chronic kidney disease) stage 3, GFR 30-59 ml/min Code(s): N18.3 - CHRONIC KIDNEY DISEASE, STAGE 3 (MODERATE) Status: Chronic (5) Cannabis abuse Code(s): F12.10 - CANNABIS ABUSE, UNCOMPLICATED Status: Chronic (6) Dyslipidemia Code(s): E78.5 - HYPERLIPIDEMIA, UNSPECIFIED Status: Chronic (7) HTN (hypertension) Code(s): I10 - ESSENTIAL (PRIMARY) HYPERTENSION Status: Chronic - Plan cont current plan of care * ventilator as per pulmonary * today MRI done * medication reviewed as below * symptomatic treatment * stroke team evaluation after extubation. Review of Systems - Review of Systems Other: unable to review due to intubated status - Medications/Allergies Allergies/Adverse Reactions: Allergies Allergy/AdvReac Type Severity Reaction Status Date / Time No Known Drug Allergies Allergy Verified 11/16/17 03:04 Medications: Current Medications Acetaminophen (Tylenol) 650 mg UT Q6H PRN PRN Reason: Headache/Fever or Pain Albuterol Sulfate (Albuterol Sulfate) 1.25 mg NEB Q4H PRN PRN Reason: Wheezing Amlodipine Besylate (Norvasc) 5 mg PER TUBE QPM CYRIL Last Admin: 11/16/17 20:56 Dose: 5 mg Artificial Tears (Tears Renewed 15ml Bottle) 0 drop EA EYE PRN PRN PRN Reason: Dry Eyes Atorvastatin Calcium (Lipitor) 20 mg PO HS CYRIL Last Admin: 11/16/17 20:56 Dose: 20 mg Bisacodyl (Dulcolax) 10 mg UT DAILYPRN PRN PRN Reason: Constipation Hydralazine HCl (Apresoline) 10 mg SLOW IVP Q4H PRN PRN Reason: Systolic BP > 180 Hydrochlorothiazide (Hydrochlorothiazide) 12.5 mg PER TUBE QAM CYRIL Last Admin: 11/17/17 09:01 Dose: 12.5 mg Sodium Chloride (Normal Saline 0.9%) 1,000 mls @ 100 mls/hr IV .Q10H CYRIL Last Admin: 11/17/17 09:01 Dose: 1,000 mls Nicardipine HCl 25 mg/ Sodium (Chloride) 250 mls @ 0 mls/hr IVPB INF CYRIL; Titrate PRN Reason: Protocol Last Admin: 11/17/17 03:58 Dose: 250 mls Fentanyl Citrate 2,000 mcg/ (Sodium Chloride) 100 mls @ 0 mls/hr IV INF CYRIL; Per Protocol PRN Reason: Protocol Stop: 12/16/17 03:32 Fentanyl Citrate (Fentanyl Bolus) 250 mls @ 0 mls/hr IVPB PRN PRN; As Directed PRN Reason: Breakthrough pain/agitation Stop: 12/16/17 03:32 Labetalol HCl (Normodyne) 20 mg SLOW IVP Q4H PRN PRN Reason: Systolic BP > 180 Lorazepam (Ativan) 2 mg SLOW IVP Q1H PRN PRN Reason: Breakthrough agitation Stop: 12/16/17 03:32 Last Admin: 11/17/17 09:02 Dose: 2 mg Metoclopramide HCl (Reglan) 5 mg IVP Q4H PRN PRN Reason: Nausea Mineral Oil/White Petrolatum (Eucerin Cream) 0 gm TOP BIDPRN PRN PRN Reason: Dry Skin Ondansetron HCl (Zofran) 4 mg IVP Q6H PRN PRN Reason: Nausea/Vomiting Pantoprazole Sodium (Protonix) 40 mg IVP DAILY CYRIL Last Admin: 11/17/17 09:01 Dose: 40 mg Propofol (Diprivan) 1,000 mg IV INF PRN; Protocol PRN Reason: TO ACHIEVE GOAL RASS Stop: 12/16/17 03:32 Last Admin: 11/17/17 09:02 Dose: 1,000 mg Propofol (Diprivan Bolus) 20 mg IV Q5MIN PRN PRN Reason: BREAKTHROUGH AGITATION Stop: 12/16/17 03:32 Sodium Biphosphate/Sodium Phosphate (Fleet Enema) 133 ml UT ONE PRN PRN Reason: Constipation Stop: 11/23/17 06:57
--- NOTE | 2017-11-17 11:57 | MRI ---
BRAIN MRI WITH AND WITHOUT CONTRAST: CLINICAL HISTORY: Stroke with left side weakness, nonverbal, CVA. FINDINGS: Since the prior head CT, there has been interval development of a large acute parenchymal hemorrhage centered at the left cerebral hemisphere with associated intraventricular hemorrhagic extension and v entriculomegaly. There is marked rightward subfalcine herniation and near-complete effacement of the body of the left lateral ventricle. Subfalcine herniation, at the level of the septum pellucidum, t o the right of midline measured 13 mm. Surrounding vasogenic edema is present. There is periventric ular white matter signal abnormality, as well. Extensive hemorrhagic susceptibility is seen diffuse ly, the predominance of which relates to the large volume of left cerebral hemispheric hemorrhage, al though there is diffuse bilateral subarachnoid hemorrhagic susceptibility as well in addition to susc eptibility within the fluid level of the ventricular system. There are areas of restricted diffusion surrounding the large hemorrhage compatible with cytotoxic edema. Within the large nidus of hemorrh age, there is no significant internal enhancement. Retained secretions are seen within the nasophary nx. Left MCA flow void is not well seen. IMPRESSION: Interval development of large acute hemorrhage centered within the left cerebral hemisphere with exte nsive mass effect, midline shift, obstructive hydrocephalus, and intraventricular hemorrhage. There is also a diffuse extraaxial hemorrhage and associated cytotoxic edema. Telephone call with findings was placed to patient's physician, Dr. Yuri Fair, 1120 hours, 11/17/17. CODE CR POS: GRETA
[2017-11-17] MEDS ORDERED: Sodium Chloride 0.9% 10 ML ONE (12:12)
[2017-11-17] MEDS ORDERED: Bacitracin Zinc Ointment 30 gm TUBE ONE (12:13)
[2017-11-17] MEDS ORDERED: Thrombin 5000 UNITS/5 ML VIAL ONE (12:13)
[2017-11-17 12:37] LABS: #Lymphocytes 1.4 thou/uL (1.20-3.40); #Monocytes 0.7 thou/uL (0.11-0.59); #Neutrophils 14.1 thou/uL (1.40-6.50); %Basophils 0.1 % (0.0-1.0); %Eosinophils 0.3 % (0.0-10.0); %Lymphocytes 8.4 % (21.0-51.0); %Monocytes 4.6 % (0.0-10.0); %Neutrophils 86.6 % (42.0-75.0); Hemoglobin 12.2 g/dL (12.0-16.0); Mean Corpuscular HGB CONC 33.7 g/dL (32.0-36.0); Mean Corpuscular Hemoglobin 30.9 pg (27.0-31.0); Mean Corpuscular Volume 91.7 fL (78.0-98.0); Mean Platelet Volume 8.9 fL (7.4-10.4); Platelet Count 154 thou/uL (130-400); RBC Distribution Width 12.4 % (11.5-14.5); Red Blood Cell (RBC) Count 3.96 mill/uL (4.20-5.40); White Blood Cell (WBC) Count 16.2 thou/uL (4.8-10.8)
--- NOTE | 2017-11-17 12:41 | PRG ---
DATE OF SERVICE: 11/17/2017 INTERVAL HISTORY: The patient has been seen this morning. She went down to MRI today and her MRI showed acute large amounts of blood with midline shift and we are waiting on her final report from her MRI scan. Patient has also had enlargement of the left pupil which is a new finding this morning and her current results, we are waiting on the MRI official report. LABORATORY DATA: White count 15.8, hemoglobin 12.6, hematocrit 39.7, platelets 168. Chemistry: Sodium 141, potassium 3.7, chloride 107, bicarbonate 25, BUN 25, creatinine 1.66. TSH 2.7. PHYSICAL EXAMINATION: VITAL SIGNS: Blood pressure 145/83, pulse 87, temperature 98.1. She is on a ventilator at this time. GENERAL APPEARANCE: She is intubated and on vent. CRANIAL NERVES: She has pupillary enlargement on the left side with poor reaction to light. On the right side, her pupil is 1 mm and she is not withdrawing to stimulation except in the right foot where she moves her right foot to stimulation. IMPRESSION: Patient with intracerebral hemorrhage in the same area as her CVA and fluid level in the right ventricle as well. At this time, we are pending an official report on MRI, but she needs neurosurgical consultation immediately to see if she is suitable for any decompressive procedure. RECOMMENDATIONS: I have spoken to the daughter and granddaughter, showed them the MRI films and update them about situation and they understand that she has a bleed and they also would like to see if there is any possibility of surgical decompression. For now, continue supportive care and I am hoping Neurosurgery can see her today and perhaps offer additional health. ADITI
[2017-11-17 12:51] LABS: Prothrombin Time 13.4 SEC (12.0-14.7)
[2017-11-17 12:55] LABS: Anion Gap 14 mmol/L (10-20); BUN (Urea Nitrogen) 13 mg/dL (9.8-20.1); Calc. Creatinine Clearance 68 mL/min (70-130); Calcium 8.9 mg/dL (7.8-10.44); Carbon Dioxide 23 mmol/L (23-31); Chloride 106 mmol/L (98-107); Estimated GFR-MDRD 67; Glucose 120 mg/dL (80-115); PTT 27.2 SEC (22.9-36.1); Sodium 140 mmol/L (136-145)
[2017-11-17] MEDS ORDERED: Fentanyl 100 MCG/2 ML VIAL ONE ×2 (12:58)
[2017-11-17 13:02] LABS: Potassium 2.9 mmol/L (3.5-5.1)
[2017-11-17] MEDS ORDERED: Potassium Chloride 40 MEQ in Sodium Chloride 0.9% 500 ML IVPB SCH (13:30)
[2017-11-17] MEDS: Labetalol HCl 100 MG/20 ML VIAL SLOW IVP PRN (14:30)
[2017-11-17] MEDS ORDERED: Vecuronium 10 MG VIAL ONE (15:27)
[2017-11-17] MEDS ORDERED: PHENYLEPHRINE-NS 100 MCG/ML 10 ML SYRINGE ONE (15:27)
--- NOTE | 2017-11-17 17:08 | CON ---
DATE OF CONSULTATION: 11/17/2017 This is Alyssia Basurto PA-C with Neurosurgery Service ATTENDING PHYSICIAN: Dr. Harry Aguilera. HISTORY OF PRESENT ILLNESS: The patient is a 67-year-old noncompliant hypertensive -[place] female, who presented to the Emergency Department yesterday for some altered mental status and right-sided weakness. CT head initially on arrival was negative for any acute intracranial abnormality. Her condition was discussed with Neurology at that time and was deemed appropriate for TPA administration. She was given TPA and had been monitored in the ICU since that time. This morning, she began having changes, which include a left decorticate posturing as well as pupillary changes with a dilated pupil, which was nonreactive on the left. She was sent for MRI of the brain, which was notable for a large intracerebral hemorrhage on the left with significant mass effect midline shift and obstructive hydrocephalus. There is also intraventricular extension of the hemorrhage. Neurosurgery Service was consulted for further management of this bleed. I am seeing the patient at the bedside, she is currently sedated and mechanically ventilated. Her pupils, the left is fixed and dilated and right is small pinpoint, nonreactive. She is not overbreathing the ventilator. She does withdraw over all 4 extremities. PAST MEDICAL HISTORY: Hypertension. PAST SURGICAL HISTORY: No prior surgical history. SOCIAL HISTORY: The patient reportedly has history of drug abuse K2, positive tobacco use, half pack per day smoker. FAMILY HISTORY: Noncontributory. ALLERGIES: She has no known drug allergies. PHYSICAL EXAMINATION: VITAL SIGNS: Heart rate is 87, BP is 145/83. The patient is currently being mechanically ventilated. GENERAL: Patient is intubated and sedated. HEENT: Normocephalic, atraumatic. Left pupil is fixed, dilated. Right pupil is pinpoint and nonreactive. LUNGS: She is currently intubated, being mechanically ventilated. HEART: Regular rhythm. MUSCULOSKELETAL: No obvious deformities. No significant edema. NEUROLOGIC: She has a left fixed pupil, which is dilated, nonreactive. Right pupil is pinpoint and nonreactive. She does withdraw to pain over all four extremities. She is not currently overbreathing the ventilator. ASSESSMENT AND PLAN: I have discussed acute neurologic changes as well as a recent imaging with Dr. Aguilera and we will plan for left craniotomy now for further management. Dr. Aguilera as discuss the plan with family and we will proceed to the OR. [facility]
--- NOTE | 2017-11-17 18:31 | OP ---
DATE OF PROCEDURE: 11/17/2017 SURGEON: Harry Aguilera M.D. ATHLETIC DIRECTOR: Alyssia Basurto PA-C PROCEDURE PERFORMED: Left frontal craniotomy, evacuation of hematoma. PROCEDURE IN DETAIL: The patient was brought to the operating room and intubated. She was positione d supine with the head turned to the right exposing the left frontotemporal region. This was shaved, prepped, and draped in sterile fashion and a curvilinear incision was made in the scalp retracted an teriorly and a standard craniotomy was performed. The dura was opened and it was clear that the sammy leonidas had expressed through the cortical surface. We then explored and evacuated hematoma into the de ep hematoma cavity. The hematoma was ultimately evacuated in its entirety. There was a meaningful a mount of oozing from the cavity vasquez which was controlled to the best of our ability. The brain was then extensively irrigated and had been completely decompressed. The dura was reapproximated with D uragen artificial dura, the skull was replaced with titanium microplates and screws and the scalp was closed in anatomic layers.
--- NOTE | 2017-11-17 18:31 | PRG ---
DATE OF SERVICE: 11/17/2017 The patient was seen and examined, I agree with Alyssia Basurto'sSUNG note of 11/17/2017. SUBJECTIVE: The patient is a 67-year-old woman who recently in good health, who was admitted with al tered mental status and obtundation and felt to likely be in the process of having a stroke. CT scan revealed multiple old white matter disease and CT angiography was negative. TPA was instituted and she was moved to the ICU. At some point, she was intubated in the course of her care. She was found to have a dilated left pupil and an MRI scan revealed a large left intracranial hemorrh age, this prompted referral. On physical examination, she has dilated and nonreactive left pupil and a small nonreactive right pup il. She was withdrawing all 4 extremities, left greater than right. MRI scan shows a massive left intracerebral hematoma. IMPRESSION AND PLAN: If there is any hope of survival, then she was going to require a surgical evac uation. Even with surgical evacuation, she has very poor prognosis for recovery of independent funct ion. I discussed this quite candidly with her family, we have agreed to proceed with surgical evacua tion and then see her in the next few days and full with respect to prognosis. We did discuss the in dications, risks, benefits, and alternatives of the craniotomy and evacuation of hematoma and they ex pressed understanding and wished to proceed.
[2017-11-17] MEDS: Atorvastatin Calcium 20 MG TAB PO SCH (20:02)
[2017-11-17] MEDS: Amlodipine 5 MG TAB PER TUBE SCH (20:02)
[2017-11-18] MEDS: Propofol 1,000 MG/100 ML VIAL IV PRN ×2 (00:10→10:22)
[2017-11-18] MEDS: niCARdipine HCl 25 MG in Sodium Chloride 0.9% 250 ML 240 ML IVPB SCH ×2 (00:43→12:35)
[2017-11-18] MEDS: Acetaminophen 650 MG Suppository PR PRN (03:00)
[2017-11-18] MEDS: Sodium Chloride 0.9% 1,000 ML IV SCH (04:19)
[2017-11-18 04:59] LABS: Anion Gap 12 mmol/L (10-20); BUN (Urea Nitrogen) 14 mg/dL (9.8-20.1); Calc. Creatinine Clearance 64 mL/min (70-130); Calcium 8.2 mg/dL (7.8-10.44); Carbon Dioxide 21 mmol/L (23-31); Chloride 113 mmol/L (98-107); Estimated GFR-MDRD 63; Glucose 125 mg/dL (80-115); Potassium 3.5 mmol/L (3.5-5.1); Sodium 142 mmol/L (136-145)
[2017-11-18] MEDS: Hydrochlorothiazide 25 MG TAB PER TUBE SCH (08:42)
[2017-11-18] MEDS: Pantoprazole 40 MG VIAL IVP SCH (08:42)
--- NOTE | 2017-11-18 09:05 | PRG ---
DATE OF SERVICE: 11/18/2017 SERVICE: Pulmonary Medicine. HISTORY OF PRESENT ILLNESS: The patient was discovered to have hemorrhagic conversion of her left MCA stroke. She underwent an emergent left frontal craniotomy with evacuation of the hematoma. After the procedure, she is regaining a little bit of pupillary function. She is also no longer posturing with noxious stimuli to the right upper extremity. Otherwise, there has been no interval change to her condition. She remains on mechanical ventilation. She is on a little bit of propofol. When we interrupted, her blood pressures go up a touch. PHYSICAL EXAMINATION: VITAL SIGNS: Afebrile, pulse 70, blood pressure 110/61, respirations 22, saturation 99% on 21% FiO2 and a PEEP of 5. GENERAL: Patient is intubated and sedated. HEENT: Normocephalic. There is a clean, dry, and intact incision over the left scalp. Sclerae are white, conjunctivae pink. Oral mucosa is moist without lesions. LUNGS: Excellent air entry. There is no prolonged expiratory phase or wheezing present. HEART: Normal rate and regular. ABDOMEN: Soft, nontender, nondistended. Bowel sounds are positive. MUSCULOSKELETAL: No cyanosis or clubbing. There is no pitting in the bilateral lower extremities. NEUROLOGIC: She withdraws from noxious stimuli in all 4 extremities including the right upper extremity today. The pupils are equal. The right eye is briskly responsive to light. Left eye is sluggishly responsive to light. She coughs and overbreathes the ventilator. LABORATORY DATA: Potassium 3.5. Basic metabolic profile is otherwise unremarkable. IMAGING DATA: MRI of the brain from before the procedure demonstrated development of a large acute hemorrhagic lesion centered in the left cerebral hemisphere with extensive mass effect, midline shift with obstructive hydrocephalus and intraventricular hemorrhage. ASSESSMENT: 1. Cerebrovascular of the left MCA, status post TPA with hemorrhagic conversion , s/p left frontal craniectomy postop day 1. 2. Hypertension. 3. Chronic kidney disease, stage 3. 4. Hypokalemia. PLAN: We will continue replacing the potassium. We will give her sedation holiday. If she meets criteria, extubation will be considered, but I do believe mentation may prevent us from doing so. She will remain in the ICU for the time being. I prepped the family for a bad outcome. That being said, they understand that within 5-7 days, we will be talking to them about either transition to comfort care only or pursuing PEG tube and tracheostomy. CRITICAL CARE TIME: 30 minutes. ADITI
[2017-11-18] MEDS: Sodium Chloride 0.45% 1,000 ML IV SCH (09:47)
--- NOTE | 2017-11-18 10:37 | PDOC.PN ---
- Subjective Encounter Start Date: 11/18/17 Encounter Start Time: 10:00 yesterday MRI showed ICH after CVA and s/p tpa, she required craniotomy yesterday, on ventilator, - Objective Resuscitation Status: Resuscitation Status FULL:Full Resuscitation MAR Reviewed: Yes Vital Signs & Weight: Vital Signs (12 hours) Temp Pulse Resp BP Pulse Ox 11/18/17 10:26 115 H 108/69 11/18/17 10:00 28 H 11/18/17 08:00 97.7 F 16 11/18/17 07:40 97.7 F 85 16 100 11/18/17 07:00 97.7 F 11/18/17 06:45 115 H 153/76 H 11/18/17 06:00 13 11/18/17 04:00 13 11/18/17 03:00 98.6 F 11/18/17 02:19 84 11/18/17 02:00 14 11/18/17 00:00 15 11/17/17 23:00 99.0 F 11/17/17 22:40 85 Weight Admit Weight 168 lb 3.392 oz Weight 168 lb 3.403 oz Most Recent Monitor Data Heart Rate from ECG 68 NIBP 102/65 NIBP BP-Mean 75 Respiration from ECG 16 SpO2 97 I&O: 11/17/17 11/18/17 11/19/17 06:59 06:59 06:59 Intake Total 3386 2971 50 Output Total 4905 2080 315 Balance -1519 891 -265 Result Diagrams: 11/17/17 12:26 11/18/17 04:20 Radiology Reviewed by me: Yes (MRI brain) EKG Reviewed by me: Yes (nsr) Phys Exam - Physical Examination Constitutional: NAD on ventilator surgical site with dressing HEENT: PERRLA, sclera anicteric Neck: no JVD, supple Respiratory: no wheezing, no rales, no rhonchi Cardiovascular: RRR, no significant murmur, no rub Gastrointestinal: soft, no distention, positive bowel sounds Musculoskeletal: no edema, pulses present scd+ unable to assess Deviation from normal: unable to assess Skin: no rash, normal turgor Dx/Plan (1) Acute CVA (cerebrovascular accident) Code(s): I63.9 - CEREBRAL INFARCTION, UNSPECIFIED Status: Acute Comment: s/ p TPA on admission (2) ICH (intracerebral hemorrhage) Code(s): I61.9 - NONTRAUMATIC INTRACEREBRAL HEMORRHAGE, UNSPECIFIED Status: Acute Qualifiers: Cerebral hemorrhage location: cerebral hemisphere, cortical portion Laterality: left Comment: due to haemorragic conversion after TPA (3) Obstructive hydrocephalus Code(s): G91.1 - OBSTRUCTIVE HYDROCEPHALUS Status: Acute Comment: due to ICH (4) S/P craniotomy Status: Acute (5) Acute respiratory failure Code(s): J96.00 - ACUTE RESPIRATORY FAILURE, UNSP W HYPOXIA OR HYPERCAPNIA Status: Acute Comment: pt is intubated for airway protection (6) Encephalopathy acute Code(s): G93.40 - ENCEPHALOPATHY, UNSPECIFIED Status: Acute Comment: due to CVA (7) CKD (chronic kidney disease) stage 3, GFR 30-59 ml/min Code(s): N18.3 - CHRONIC KIDNEY DISEASE, STAGE 3 (MODERATE) Status: Chronic (8) Cannabis abuse Code(s): F12.10 - CANNABIS ABUSE, UNCOMPLICATED Status: Chronic (9) Dyslipidemia Code(s): E78.5 - HYPERLIPIDEMIA, UNSPECIFIED Status: Chronic (10) HTN (hypertension) Code(s): I10 - ESSENTIAL (PRIMARY) HYPERTENSION Status: Chronic - Plan cont current plan of care, respiratory therapy * ventilator as per pulmonary * her prognosis is guarded, does not appear good * in next few days, will decide if she makes any improvement or not, if not then comfort care if family agree otherwise she will need trach and peg * medication reviewed as below * symptomatic treatment. Review of Systems - Review of Systems Other: unable to review due to intubated status - Medications/Allergies Allergies/Adverse Reactions: Allergies Allergy/AdvReac Type Severity Reaction Status Date / Time No Known Drug Allergies Allergy Verified 11/16/17 03:04 Medications: Current Medications Acetaminophen (Tylenol) 650 mg OR Q6H PRN PRN Reason: Headache/Fever or Pain Last Admin: 11/18/17 03:00 Dose: 650 mg Albuterol Sulfate (Albuterol Sulfate) 1.25 mg NEB Q4H PRN PRN Reason: Wheezing Amlodipine Besylate (Norvasc) 5 mg PER TUBE QPM CYRIL Last Admin: 11/17/17 20:02 Dose: 5 mg Artificial Tears (Tears Renewed 15ml Bottle) 0 drop EA EYE PRN PRN PRN Reason: Dry Eyes Atorvastatin Calcium (Lipitor) 20 mg PO HS [facility] Last Admin: 11/17/17 20:02 Dose: 20 mg Bisacodyl (Dulcolax) 10 mg OR DAILYPRN PRN PRN Reason: Constipation Hydralazine HCl (Apresoline) 10 mg SLOW IVP Q4H PRN PRN Reason: Systolic BP > 180 Hydrochlorothiazide (Hydrochlorothiazide) 12.5 mg PER TUBE QAM [facility] Last Admin: 11/18/17 08:42 Dose: 12.5 mg Nicardipine HCl 25 mg/ Sodium (Chloride) 250 mls @ 0 mls/hr IVPB INF [facility]; Titrate PRN Reason: Protocol Last Admin: 11/18/17 00:43 Dose: 250 mls Fentanyl Citrate 2,000 mcg/ (Sodium Chloride) 100 mls @ 0 mls/hr IV INF CYRIL; Per Protocol PRN Reason: Protocol Stop: 12/16/17 03:32 Fentanyl Citrate (Fentanyl Bolus) 250 mls @ 0 mls/hr IVPB PRN PRN; As Directed PRN Reason: Breakthrough pain/agitation Stop: 12/16/17 03:32 Sodium Chloride (1/2 Normal Saline) 1,000 mls @ 75 mls/hr IV .[id number] [facility] Last Admin: 11/18/17 09:47 Dose: 1,000 mls Labetalol HCl (Normodyne) 20 mg SLOW IVP Q4H PRN PRN Reason: Systolic BP > 180 Last Admin: 11/17/17 14:30 Dose: 20 mg Metoclopramide HCl (Reglan) 5 mg IVP Q4H PRN PRN Reason: Nausea Mineral Oil/White Petrolatum (Eucerin Cream) 0 gm TOP BIDPRN PRN PRN Reason: Dry Skin Ondansetron HCl (Zofran) 4 mg IVP Q6H PRN PRN Reason: Nausea/Vomiting Pantoprazole Sodium (Protonix) 40 mg IVP DAILY [facility] Last Admin: 11/18/17 08:42 Dose: 40 mg Potassium Chloride (Klor-Con) 40 meq PO Q4H [facility] Stop: 11/18/17 13:31 Last Admin: 11/18/17 09:45 Dose: 40 meq Propofol (Diprivan) 1,000 mg IV INF PRN; Protocol PRN Reason: TO ACHIEVE GOAL RASS Stop: 12/16/17 03:32 Last Admin: 11/18/17 10:22 Dose: 1,000 mg Propofol (Diprivan Bolus) 20 mg IV Q5MIN PRN PRN Reason: BREAKTHROUGH AGITATION Stop: 12/16/17 03:32 Sodium Biphosphate/Sodium Phosphate (Fleet Enema) 133 ml OR ONE PRN PRN Reason: Constipation Stop: 11/23/17 06:57
--- NOTE | 2017-11-18 14:22 | PRG ---
DATE OF SERVICE: 11/18/2017 CHIEF COMPLAINT: Acute CVA. INTERVAL HISTORY: The patient underwent surgery yesterday for following the intracerebral hematoma a nd she underwent a craniotomy and since then she has been sedated and is currently being managed in [facility] ICU. At this time, there is no significant change in the patient except for change in th e pupillary reaction per nursing staff. CURRENT LABORATORY DATA: Hemoglobin 12.2, hematocrit 36.3, white count 16.2, and platelets 154. Sod ium 142, potassium 3.5, chloride 113, bicarbonate 21, BUN 14, creatinine 1.06, glucose 125. PHYSICAL EXAMINATION: VITAL SIGNS: Blood pressure 109/75, pulse rate is 104, temperature 97.7. NEUROLOGIC: She is under sedation, nonresponsive to any stimuli. Pupils are equal today and sluggis h reaction to light. Deep tendon reflexes present in the left knee jerk. IMPRESSION: Patient with a devastating cerebrovascular accident followed by intracerebral hemorrhage in the left cerebral hemisphere with extensive mass effect, midline shift or obstructive hydrocephal us and intraventricular hemorrhage which needed the decompressive surgery yesterday. At this time, h er prognosis is very guarded. RECOMMENDATIONS: Please continue to monitor her and I will request Neurology to continue follow up w ith this patient.
[2017-11-18] MEDS: Atorvastatin Calcium 20 MG TAB PO SCH (20:39)
[2017-11-18] MEDS: Amlodipine 5 MG TAB PER TUBE SCH (20:39)
[2017-11-19] MEDS: Propofol 1,000 MG/100 ML VIAL IV PRN (04:59)
[2017-11-19] MEDS: Sodium Chloride 0.45% 1,000 ML IV SCH ×2 (04:59→11:02)
--- NOTE | 2017-11-19 07:54 | PRG ---
DATE OF SERVICE: 11/19/2017 Ms. Waddell and is now postop 2 for evacuation of her fused left intracerebral hematoma. She had marc e recovery of pupillary function and withdraws all 4 off sedation, the left is stronger than right. She has substantial swelling over the left frontal and periorbital region as anticipated. Her wound was clean and dry. IMPRESSION AND PLAN: A large left intracerebral hemorrhage after t-PA for stroke. This has been khadar gically evacuated. Given the extreme size of the intracerebral hemorrhage in the dominant hemisphere , I believe that her long-term prognosis for recovery of independent function is relatively poor. We have exhausted all surgical strategies. We will defer to the primary service and the ICU team regar ding her ongoing intensive care and ongoing level of care. No specific Neurosurgery recommendations at this time.
[2017-11-19] MEDS: Labetalol HCl 100 MG/20 ML VIAL SLOW IVP PRN (10:10)
[2017-11-19] MEDS: Pantoprazole 40 MG VIAL IVP SCH (10:16)
[2017-11-19] MEDS: Hydrochlorothiazide 25 MG TAB PER TUBE SCH (10:16)
--- NOTE | 2017-11-19 10:39 | PRG ---
DATE OF SERVICE: 11/19/2017 SERVICE: Pulmonary Medicine. INTERVAL HISTORY: The patient is doing okay from a respiratory standpoint. She is breathing comfort ably. On sedation, she does very well. The first time she gets a holiday, she becomes very tachypne ic and hypertensive. Ultimately, she has to be put back down. She cannot provide any additional arti ments of the history. She is not following commands at this time. PHYSICAL EXAMINATION: VITAL SIGNS: Afebrile, pulse 85, blood pressure 161/101, respirations 21, saturation 97% on 27% FIO2 and a PEEP of 5. GENERAL: The patient is intubated and under the influence of some sedation. HEENT: Normocephalic. Scar is clean, dry, and intact. Sclerae are white, conjunctivae pink. Oral and nasal mucosa is moist without lesions. LUNGS: Excellent air entry. There is no prolonged expiratory phase, wheezing, rhonchi, or crackles present. HEART: Normal rate, regular. ABDOMEN: Soft, nontender, nondistended. Bowel sounds are positive. MUSCULOSKELETAL: No cyanosis or clubbing. There is no pitting in the bilateral lower extremities. LABORATORY DATA: WBC 16.2, hemoglobin 12.2, platelets 154,000. Basic metabolic profile is essential ly unremarkable except for potassium of 3.5. Urinalysis is unremarkable. Urine drug screen is negat jacqui except for cannabinoids. Blood cultures are negative x1. ASSESSMENT: 1. Respiratory failure secondary to inability to protect airway. 2. Cerebrovascular accident of the left middle cerebral artery, status post TPA with hemorrhagic con version. 3. Craniectomy with evacuation of the hematoma and replacement of bone flap, postop #2. 4. Hypertension. 5. Chronic kidney disease stage 3. 6. Hypokalemia, improving. DISCUSSION, AND PLAN: We will continue replacing her potassium. I will give her daily sedation holi day. Because of her tachycardia and agitation on the propofol, we will see if Precedex is capable of improving her agitation. I will monitor for signs of sepsis. If we see them, sherman culture, and empi precious antibiotics will be considered. Palliative Care consultation will be placed. Multiple adjustmen ts have been made to the ventilator. Hopefully, we can keep her off sedation for as long as possible . CRITICAL CARE TIME: 30 minutes.
--- NOTE | 2017-11-19 11:58 | PDOC.PN ---
- Subjective Encounter Start Date: 11/19/17 Encounter Start Time: 10:20 Patient seen and examined. pt is intubated on ventilator. No overnight events - Objective Resuscitation Status: Resuscitation Status FULL:Full Resuscitation MAR Reviewed: Yes Vital Signs & Weight: Vital Signs (12 hours) Temp Pulse Resp BP Pulse Ox 11/19/17 10:52 75 104/62 11/19/17 10:10 85 161/101 H 11/19/17 10:00 17 11/19/17 08:00 98.8 F 85 14 100 11/19/17 07:11 82 96/69 11/19/17 06:00 15 11/19/17 04:00 11 L 11/19/17 02:31 94 11/19/17 02:00 12 11/19/17 00:00 15 Weight Admit Weight 168 lb 3.392 oz Weight 168 lb 3.403 oz Most Recent Monitor Data Heart Rate from ECG 73 NIBP 110/65 NIBP BP-Mean 78 Respiration from ECG 16 SpO2 99 I&O: 11/18/17 11/19/17 11/20/17 06:59 06:59 06:59 Intake Total 2971 2947 Output Total 2080 1755 470 Balance 891 1192 -470 Result Diagrams: 11/17/17 12:26 11/18/17 04:20 EKG Reviewed by me: Yes (nsr) Phys Exam - Physical Examination Constitutional: NAD edema eyelid, surgical site with suture Neck: no JVD Respiratory: no wheezing, no rales, no rhonchi Cardiovascular: RRR, no significant murmur, no rub Gastrointestinal: soft, no distention, positive bowel sounds Musculoskeletal: no edema, pulses present scd+ unable to assess Lymphatic: no nodes Deviation from normal: unable to assess Skin: no rash, normal turgor Dx/Plan (1) Acute CVA (cerebrovascular accident) Code(s): I63.9 - CEREBRAL INFARCTION, UNSPECIFIED Status: Acute Comment: s/ p TPA on admission (2) ICH (intracerebral hemorrhage) Code(s): I61.9 - NONTRAUMATIC INTRACEREBRAL HEMORRHAGE, UNSPECIFIED Status: Acute Qualifiers: Cerebral hemorrhage location: cerebral hemisphere, cortical portion Laterality: left Comment: due to haemorragic conversion after TPA (3) Obstructive hydrocephalus Code(s): G91.1 - OBSTRUCTIVE HYDROCEPHALUS Status: Acute Comment: due to ICH (4) S/P craniotomy Status: Acute (5) Acute respiratory failure Code(s): J96.00 - ACUTE RESPIRATORY FAILURE, UNSP W HYPOXIA OR HYPERCAPNIA Status: Acute Comment: pt is intubated for airway protection (6) Encephalopathy acute Code(s): G93.40 - ENCEPHALOPATHY, UNSPECIFIED Status: Acute Comment: due to CVA (7) CKD (chronic kidney disease) stage 3, GFR 30-59 ml/min Code(s): N18.3 - CHRONIC KIDNEY DISEASE, STAGE 3 (MODERATE) Status: Chronic (8) Cannabis abuse Code(s): F12.10 - CANNABIS ABUSE, UNCOMPLICATED Status: Chronic (9) Dyslipidemia Code(s): E78.5 - HYPERLIPIDEMIA, UNSPECIFIED Status: Chronic (10) HTN (hypertension) Code(s): I10 - ESSENTIAL (PRIMARY) HYPERTENSION Status: Chronic - Plan cont current plan of care, plan discussed w/ family * spoke with granddaughter bedside, per them pt did not want tracheostomy if unable to extubate soon, in that case they will decide about terminal extubation and comfort care * but if she does improve, and extubated successfully, then they are ok with peg tube * for now they are ok with full code * prognosis is poor * medication reviewed as below * symptomatic treatment * vent as per pulmonary * neurosurgery following. Review of Systems - Review of Systems Other: unable to review due to intubated status - Medications/Allergies Allergies/Adverse Reactions: Allergies Allergy/AdvReac Type Severity Reaction Status Date / Time No Known Drug Allergies Allergy Verified 11/16/17 03:04 Medications: Current Medications Acetaminophen (Tylenol) 650 mg MN Q6H PRN PRN Reason: Headache/Fever or Pain Last Admin: 11/18/17 03:00 Dose: 650 mg Albuterol Sulfate (Albuterol Sulfate) 1.25 mg NEB Q4H PRN PRN Reason: Wheezing Albuterol/Ipratropium (Duoneb) 3 ml NEB [id number] CYRIL Amlodipine Besylate (Norvasc) 5 mg PER TUBE QPM [facility] Last Admin: 11/18/17 20:39 Dose: 5 mg Artificial Tears (Tears Renewed 15ml Bottle) 0 drop EA EYE PRN PRN PRN Reason: Dry Eyes Atorvastatin Calcium (Lipitor) 20 mg PO HS [facility] Last Admin: 11/18/17 20:39 Dose: 20 mg Bisacodyl (Dulcolax) 10 mg MN DAILYPRN PRN PRN Reason: Constipation Hydralazine HCl (Apresoline) 10 mg SLOW IVP Q4H PRN PRN Reason: Systolic BP > 180 Hydrochlorothiazide (Hydrochlorothiazide) 12.5 mg PER TUBE QAM [facility] Last Admin: 11/19/17 10:16 Dose: 12.5 mg Nicardipine HCl 25 mg/ Sodium (Chloride) 250 mls @ 0 mls/hr IVPB INF C[facility]; Titrate PRN Reason: Protocol Last Admin: 11/18/17 12:35 Dose: 250 mls Sodium Chloride (1/2 Normal Saline) 1,000 mls @ 75 mls/hr IV .[id number] [facility] Last Admin: 11/19/17 11:02 Dose: 1,000 mls Dexmedetomidine HCl 200 mcg/ (Sodium Chloride) 50 mls @ 0 mls/hr IVPB INF C[facility]; Per Protocol PRN Reason: Protocol Labetalol HCl (Normodyne) 20 mg SLOW IVP Q4H PRN PRN Reason: Systolic BP > 180 Last Admin: 11/19/17 10:10 Dose: 20 mg Metoclopramide HCl (Reglan) 5 mg IVP Q4H PRN PRN Reason: Nausea Mineral Oil/White Petrolatum (Eucerin Cream) 0 gm TOP BIDPRN PRN PRN Reason: Dry Skin Ondansetron HCl (Zofran) 4 mg IVP Q6H PRN PRN Reason: Nausea/Vomiting Pantoprazole Sodium (Protonix) 40 mg IVP DAILY [facility] Last Admin: 11/19/17 10:16 Dose: 40 mg Potassium Chloride (Klor-Con) 40 meq PO NOW [facility] Stop: 11/19/17 12:45 Last Admin: 11/19/17 11:02 Dose: 40 meq Potassium Chloride (Klor-Con) 20 meq PO QAM[facility] Propofol (Diprivan) 1,000 mg IV INF PRN; Protocol PRN Reason: TO ACHIEVE GOAL RASS Stop: 12/16/17 03:32 Last Admin: 11/19/17 04:59 Dose: 1,000 mg Propofol (Diprivan Bolus) 20 mg IV Q5MIN PRN PRN Reason: BREAKTHROUGH AGITATION Stop: 12/16/17 03:32 Sodium Biphosphate/Sodium Phosphate (Fleet Enema) 133 ml MN ONE PRN PRN Reason: Constipation Stop: 11/23/17 06:57
[2017-11-19] MEDS: Atorvastatin Calcium 20 MG TAB PO SCH (19:40)
[2017-11-19] MEDS: Amlodipine 5 MG TAB PER TUBE SCH (19:40)
[2017-11-19] MEDS: Acetaminophen 650 MG Suppository PR PRN (19:41)
[2017-11-20] MEDS: Sodium Chloride 0.45% 1,000 ML IV SCH ×2 (01:38→18:30)
--- NOTE | 2017-11-20 09:48 | PDOC.PN ---
- Subjective Encounter Start Date: 11/20/17 Encounter Start Time: 09:30 pt is unresponsive, on tube feeding, on vent, on precedex - Objective Resuscitation Status: Resuscitation Status FULL:Full Resuscitation MAR Reviewed: Yes Vital Signs & Weight: Vital Signs (12 hours) Temp Pulse Resp BP Pulse Ox 11/20/17 07:07 73 114/67 11/20/17 07:06 79 15 100 11/20/17 06:00 14 11/20/17 04:00 98.4 F 15 11/20/17 02:40 67 94/56 L 11/20/17 02:00 13 11/20/17 00:13 81 89/57 L 11/20/17 00:00 17 11/19/17 23:52 98.9 F 11/19/17 23:09 85 160/110 H 11/19/17 22:16 85 110/66 11/19/17 22:00 49 H Weight Admit Weight 168 lb 3.392 oz Weight 168 lb 3.403 oz Most Recent Monitor Data Heart Rate from ECG 81 NIBP 112/64 NIBP BP-Mean 82 Respiration from ECG 20 SpO2 100 I&O: 11/19/17 11/20/17 11/21/17 06:59 06:59 06:59 Intake Total 2947 2528.5 Output Total 1755 1685 50 Balance 1192 843.5 -50 Result Diagrams: 11/17/17 12:26 11/18/17 04:20 EKG Reviewed by me: Yes (nsr) Phys Exam - Physical Examination Constitutional: NAD intubated HEENT: sclera anicteric eyelid swelling surgical site in scalp clean Neck: no JVD, supple Respiratory: no wheezing, no rales, no rhonchi Cardiovascular: RRR, no significant murmur, no rub Gastrointestinal: soft, no distention, positive bowel sounds Musculoskeletal: no edema, pulses present scd+ unable to assess Lymphatic: no nodes Deviation from normal: unable to assess Skin: no rash, normal turgor Dx/Plan (1) Acute CVA (cerebrovascular accident) Code(s): I63.9 - CEREBRAL INFARCTION, UNSPECIFIED Status: Acute Comment: s/ p TPA on admission (2) ICH (intracerebral hemorrhage) Code(s): I61.9 - NONTRAUMATIC INTRACEREBRAL HEMORRHAGE, UNSPECIFIED Status: Acute Qualifiers: Cerebral hemorrhage location: cerebral hemisphere, cortical portion Laterality: left Comment: due to haemorragic conversion after TPA (3) Obstructive hydrocephalus Code(s): G91.1 - OBSTRUCTIVE HYDROCEPHALUS Status: Acute Comment: due to ICH (4) S/P craniotomy Status: Acute (5) Acute respiratory failure Code(s): J96.00 - ACUTE RESPIRATORY FAILURE, UNSP W HYPOXIA OR HYPERCAPNIA Status: Acute Comment: pt is intubated for airway protection (6) Encephalopathy acute Code(s): G93.40 - ENCEPHALOPATHY, UNSPECIFIED Status: Acute Comment: due to CVA (7) CKD (chronic kidney disease) stage 3, GFR 30-59 ml/min Code(s): N18.3 - CHRONIC KIDNEY DISEASE, STAGE 3 (MODERATE) Status: Chronic (8) Cannabis abuse Code(s): F12.10 - CANNABIS ABUSE, UNCOMPLICATED Status: Chronic (9) Dyslipidemia Code(s): E78.5 - HYPERLIPIDEMIA, UNSPECIFIED Status: Chronic (10) HTN (hypertension) Code(s): I10 - ESSENTIAL (PRIMARY) HYPERTENSION Status: Chronic - Plan cont current plan of care, respiratory therapy * palliative care consulted * vent as per pulmonary * as per family for now full code but palliative care needs to readdress again with family * prognosis is very poor * family does not want trach in case of prolonged support on vent * medication reviewed as below * symptomatic treatment. Review of Systems - Review of Systems Other: unable to review due to intubated status - Medications/Allergies Allergies/Adverse Reactions: Allergies Allergy/AdvReac Type Severity Reaction Status Date / Time No Known Drug Allergies Allergy Verified 11/16/17 03:04 Medications: Current Medications Acetaminophen (Tylenol) 650 mg OR Q6H PRN PRN Reason: Headache/Fever or Pain Last Admin: 11/19/17 19:41 Dose: 650 mg Albuterol Sulfate (Albuterol Sulfate) 1.25 mg NEB Q4H PRN PRN Reason: Wheezing Albuterol/Ipratropium (Duoneb) 3 ml NEB [id number] [facility] Last Admin: 11/20/17 07:06 Dose: 3 ml Amlodipine Besylate (Norvasc) 5 mg PER TUBE QPM [facility] Last Admin: 11/19/17 19:40 Dose: 5 mg Artificial Tears (Tears Renewed 15ml Bottle) 0 drop EA EYE PRN PRN PRN Reason: Dry Eyes Atorvastatin Calcium (Lipitor) 20 mg PO HS [facility] Last Admin: 11/19/17 19:40 Dose: 20 mg Bisacodyl (Dulcolax) 10 mg OR DAILYPRN PRN PRN Reason: Constipation Hydralazine HCl (Apresoline) 10 mg SLOW IVP Q4H PRN PRN Reason: Systolic BP > 180 Last Admin: 11/19/17 23:09 Dose: 10 mg Hydrochlorothiazide (Hydrochlorothiazide) 12.5 mg PER TUBE QAM [facility] Last Admin: 11/19/17 10:16 Dose: 12.5 mg Nicardipine HCl 25 mg/ Sodium (Chloride) 250 mls @ 0 mls/hr IVPB INF [facility]; Titrate PRN Reason: Protocol Last Admin: 11/18/17 12:35 Dose: 250 mls Sodium Chloride (1/2 Normal Saline) 1,000 mls @ 75 mls/hr IV .[id number] [facility] Last Admin: 11/20/17 01:38 Dose: 1,000 mls Dexmedetomidine HCl 200 mcg/ (Sodium Chloride) 50 mls @ 0 mls/hr IVPB INF [facility]; Per Protocol PRN Reason: Protocol Last Admin: 11/20/17 03:38 Dose: 50 mls Labetalol HCl (Normodyne) 20 mg SLOW IVP Q4H PRN PRN Reason: Systolic BP > 180 Last Admin: 11/19/17 10:10 Dose: 20 mg Metoclopramide HCl (Reglan) 5 mg IVP Q4H PRN PRN Reason: Nausea Mineral Oil/White Petrolatum (Eucerin Cream) 0 gm TOP BIDPRN PRN PRN Reason: Dry Skin Ondansetron HCl (Zofran) 4 mg IVP Q6H PRN PRN Reason: Nausea/Vomiting Pantoprazole Sodium (Protonix) 40 mg IVP DAILY [facility] Last Admin: 11/19/17 10:16 Dose: 40 mg Potassium Chloride (Klor-Con) 20 meq PO QAM-[facility] Propofol (Diprivan) 1,000 mg IV INF PRN; Protocol PRN Reason: TO ACHIEVE GOAL RASS Stop: 12/16/17 03:32 Last Admin: 11/19/17 04:59 Dose: 1,000 mg Propofol (Diprivan Bolus) 20 mg IV Q5MIN PRN PRN Reason: BREAKTHROUGH AGITATION Stop: 12/16/17 03:32 Sodium Biphosphate/Sodium Phosphate (Fleet Enema) 133 ml OR ONE PRN PRN Reason: Constipation Stop: 11/23/17 06:57
[2017-11-20] MEDS: Hydrochlorothiazide 25 MG TAB PER TUBE SCH (09:49)
[2017-11-20] MEDS: Pantoprazole 40 MG VIAL IVP SCH (09:50)
--- NOTE | 2017-11-20 11:39 | PRG ---
DATE OF SERVICE: 11/20/2017 Ms. Waddell this morning, she is on the vent. She is on Precedex. I have suggested low dose to cont rol agitation, which apparently is helping. PHYSICAL EXAMINATION: VITAL SIGNS: Pulse is 91, blood pressure 120/86, sats 100%, respirations 17. She is in essence afeb rile, temperature 98. Pretty much unresponsive. CHEST: Chest reveals decreased breath sounds without any wheezing. CARDIAC: Normal S1, S2. ABDOMEN: Soft. She has no edema. LABORATORY DATA: No lab or x-ray have been done for a few days, one is being ordered. IMPRESSION: 1. Status post craniotomy, status post intracerebral hemorrhage. 2. Respiratory failure with encephalopathy, hypertension and renal failure. PLAN: Continue supportive care. Continue nutrition, PT. Discussed with family ongoing care. One-half hour critical care time.
[2017-11-20] MEDS: Atorvastatin Calcium 20 MG TAB PO SCH (20:01)
[2017-11-20] MEDS: Amlodipine 5 MG TAB PER TUBE SCH (20:02)
[2017-11-21 07:23] LABS: #Eosinphils 0.1 thou/uL (0.0-0.7); #Lymphocytes 1.5 thou/uL (1.20-3.40); #Monocytes 0.6 thou/uL (0.11-0.59); #Neutrophils 8.9 thou/uL (1.40-6.50); %Basophils 0.1 % (0.0-1.0); %Eosinophils 1.1 % (0.0-10.0); %Lymphocytes 13.8 % (21.0-51.0); %Monocytes 5.4 % (0.0-10.0); %Neutrophils 79.6 % (42.0-75.0); Mean Corpuscular HGB CONC 32.6 g/dL (32.0-36.0); Mean Corpuscular Hemoglobin 30.6 pg (27.0-31.0); Mean Corpuscular Volume 93.9 fL (78.0-98.0); Mean Platelet Volume 8.1 fL (7.4-10.4); Platelet Count 175 thou/uL (130-400); RBC Distribution Width 12.4 % (11.5-14.5); Red Blood Cell (RBC) Count 3.27 mill/uL (4.20-5.40); White Blood Cell (WBC) Count 11.2 thou/uL (4.8-10.8)
[2017-11-21 07:41] LABS: Anion Gap 15 mmol/L (10-20); BUN (Urea Nitrogen) 25 mg/dL (9.8-20.1); Calc. Creatinine Clearance 52 mL/min (70-130); Carbon Dioxide 18 mmol/L (23-31); Chloride 106 mmol/L (98-107); Estimated GFR-MDRD 50; Glucose 129 mg/dL (80-115); Potassium 4.1 mmol/L (3.5-5.1); Sodium 135 mmol/L (136-145)
[2017-11-21 08:01] LABS: Actual Bicarbonate (HCO3a) 19.2 mEq/L (22-28); Base Excess (BEa) -3.1 mEq/L (-2.0 to +3.0); CO2 Tension 25.5 mmHg (35.0-45.0); pH, Arterial 7.49 (7.35-7.45)
[2017-11-21 08:02] LABS: ALV-art Gradient 39.635 (0-20); Calcium, Ionized 1.1 mmol/L (1.12-1.30); Hemoglobin (Hb) 9.8 g/dL (12.0-16.0); Puncture Site RRA
--- NOTE | 2017-11-21 08:43 | RAD ---
PORTABLE CHEST: HISTORY: Respiratory distress. COMPARISON: 11/16/17 study. FINDINGS: Endotracheal and NG tubes in satisfactory position. Heart size is within normal limits. There are a therosclerotic changes of the aorta. The lungs are clear of infiltrates. IMPRESSION: No active intrathoracic disease. POS: [facility]
--- NOTE | 2017-11-21 09:46 | PRG ---
DATE OF SERVICE: 11/21/2017 This morning remains intubated on the vent. Essentially breathing on her own at about a rate of 16-2 0. PHYSICAL EXAMINATION: VITAL SIGNS: Blood pressure 120/80, pulse 80, respiration rate 18. HEENT: Pupils are 2 mm. CHEST: Chest reveals decreased breath sounds without any wheezing. CARDIAC: Normal S1, S2, no gallops. ABDOMEN: Soft, no masses. LABORATORY: White count 11,000, H&H 10 and 30, platelet count 175, pO2 is 121, pCO2 25, pH 7.49. Cr eatinine 1.3. Chest x-ray; no acute infiltrates. IMPRESSION: 1. Intracerebral hemorrhage status post craniotomy. 2. Mild azotemia. PLAN: Awaiting family's input. She is less agitated. Overall, prognosis is grave. I am concerned if we extubate her she may not be able to protect her airways. I will discuss with the family as they arrive. One-half hour critical care time.
[2017-11-21] MEDS: Hydrochlorothiazide 25 MG TAB PER TUBE SCH (10:16)
[2017-11-21] MEDS: Pantoprazole 40 MG VIAL IVP SCH (10:17)
[2017-11-21] MEDS: Acetaminophen 650 MG Suppository PR PRN (12:00)
[2017-11-21] MEDS: Propofol 1,000 MG/100 ML VIAL IV PRN ×2 (12:11→20:30)
--- NOTE | 2017-11-21 14:03 | PDOC.PN ---
- Subjective Encounter Start Date: 11/21/17 Encounter Start Time: 13:00 Patient remains intubated and is Critically Ill, with posturing noted along with nurse at Bedside. - Objective Resuscitation Status: Resuscitation Status FULL:Full Resuscitation MAR Reviewed: Yes Vital Signs & Weight: Vital Signs (12 hours) Temp Pulse Resp BP Pulse Ox 11/21/17 13:14 79 97/58 L 11/21/17 13:12 79 16 99 11/21/17 12:20 22 H 11/21/17 12:00 102 F H 11/21/17 11:04 86 111/74 11/21/17 10:00 22 H 11/21/17 08:00 100.8 F H 16 11/21/17 06:56 97 101/65 11/21/17 06:55 85 22 H 99 11/21/17 06:00 16 11/21/17 04:00 16 11/21/17 02:41 113 H 106/60 Weight Admit Weight 168 lb 3.392 oz Weight 168 lb 3.403 oz Most Recent Monitor Data Heart Rate from ECG 87 NIBP 107/61 NIBP BP-Mean 76 Respiration from ECG 19 SpO2 100 I&O: 11/20/17 11/21/17 11/22/17 06:59 06:59 06:59 Intake Total 2528.5 2840 30 Output Total 1685 1525 390 Balance 843.5 1315 -360 Result Diagrams: 11/21/17 07:07 11/21/17 07:07 Radiology Reviewed by me: Yes Phys Exam - Physical Examination Neck: no nodes, no JVD Respiratory: no wheezing, no rales Cardiovascular: RRR, no significant murmur Gastrointestinal: soft, non-tender Musculoskeletal: no edema, pulses present Dx/Plan (1) Acute CVA (cerebrovascular accident) Code(s): I63.9 - CEREBRAL INFARCTION, UNSPECIFIED Status: Acute Comment: s/ p TPA on admission (2) Acute respiratory failure Code(s): J96.00 - ACUTE RESPIRATORY FAILURE, UNSP W HYPOXIA OR HYPERCAPNIA Status: Acute Comment: pt is intubated for airway protection (3) Encephalopathy acute Code(s): G93.40 - ENCEPHALOPATHY, UNSPECIFIED Status: Acute Comment: due to CVA, worsieng, pt is Poor prognsosis due to Bleed (4) ICH (intracerebral hemorrhage) Code(s): I61.9 - NONTRAUMATIC INTRACEREBRAL HEMORRHAGE, UNSPECIFIED Status: Acute Qualifiers: Cerebral hemorrhage location: cerebral hemisphere, cortical portion Laterality: left Comment: due to haemorragic conversion after TPA (5) Obstructive hydrocephalus Code(s): G91.1 - OBSTRUCTIVE HYDROCEPHALUS Status: Acute Comment: due to ICH (6) S/P craniotomy Status: Acute (7) CKD (chronic kidney disease) stage 3, GFR 30-59 ml/min Code(s): N18.3 - CHRONIC KIDNEY DISEASE, STAGE 3 (MODERATE) Status: Chronic Comment: worseing not much improvement, Will cotninue with IV fluids. (8) Cannabis abuse Code(s): F12.10 - CANNABIS ABUSE, UNCOMPLICATED Status: Chronic (9) HTN (hypertension) Code(s): I10 - ESSENTIAL (PRIMARY) HYPERTENSION Status: Chronic Comment: Controlled and permisive Hypertensiion >160 sysolic. - Plan cont current plan of care, social service assistant, DVT proph w/SCDs * . Review of Systems - Review of Systems Other: Non verbal, With pome[facility] hospital ventilations - Medications/Allergies Allergies/Adverse Reactions: Allergies Allergy/AdvReac Type Severity Reaction Status Date / Time No Known Drug Allergies Allergy Verified 11/16/17 03:04 Medications: Current Medications Acetaminophen (Tylenol) [address] Q6H PRN PRN Reason: Headache/Fever or Pain Last Admin: 11/21/17 12:00 Dose: 650 mg Albuterol Sulfate (Albuterol Sulfate) 1.25 mg NEB Q4H PRN PRN Reason: Wheezing Albuterol/Ipratropium (Duoneb) 3 ml NEB [id number] [facility] Last Admin: 11/21/17 13:12 Dose: 3 ml Amlodipine Besylate (Norvasc) 5 mg PER TUBE QPM [facility] Last Admin: 11/20/17 20:02 Dose: 5 mg Artificial Tears (Tears Renewed 15ml Bottle) 0 drop EA EYE PRN PRN PRN Reason: Dry Eyes Atorvastatin Calcium (Lipitor) 20 mg PO HS [facility] Last Admin: 11/20/17 20:01 Dose: 20 mg Bisacodyl (Dulcolax) [address] DAILYPRN PRN PRN Reason: Constipation Hydralazine HCl (Apresoline) 10 mg SLOW IVP Q4H PRN PRN Reason: Systolic BP > 180 Last Admin: 11/19/17 23:09 Dose: 10 mg Hydrochlorothiazide (Hydrochlorothiazide) 12.[facility] Last Admin: 11/21/17 10:16 Dose: 12.5 mg Nicardipine HCl 25 mg/ Sodium (Chloride) 250 mls @ 0 mls/hr IVPB INF [facility]; Titrate PRN Reason: Protocol Last Admin: 11/18/17 12:35 Dose: 250 mls Sodium Chloride (1/2 Normal Saline) 1,000 mls @ 75 mls/hr IV .[id number] [facility] Last Admin: 11/20/17 18:30 Dose: 1,000 mls Dexmedetomidine HCl 200 mcg/ (Sodium Chloride) 50 mls @ 0 mls/hr IVPB INF [facility]; Per Protocol PRN Reason: Protocol Last Admin: 11/21/17 10:28 Dose: 50 mls Labetalol HCl (Normodyne) 20 mg SLOW IVP Q4H PRN PRN Reason: Systolic BP > 180 Last Admin: 11/19/17 10:10 Dose: 20 mg Metoclopramide HCl (Reglan) 5 mg IVP Q4H PRN PRN Reason: Nausea Mineral Oil/White Petrolatum (Eucerin Cream) 0 gm TOP BIDPRN PRN PRN Reason: Dry Skin Ondansetron HCl (Zofran) 4 mg IVP Q6H PRN PRN Reason: Nausea/Vomiting Pantoprazole Sodium (Protonix) 40 mg IVP DAILY [facility] Last Admin: 11/21/17 10:17 Dose: 40 mg Potassium Chloride (Klor-Con) 20 meq PO QAM-[facility] Last Admin: 11/21/17 10:16 Dose: 20 meq Propofol (Diprivan) 1,000 mg IV INF PRN; Protocol PRN Reason: TO ACHIEVE GOAL RASS Stop: 12/16/17 03:32 Last Admin: 11/21/17 12:11 Dose: 1,000 mg Propofol (Diprivan Bolus) 20 mg IV Q5MIN PRN PRN Reason: BREAKTHROUGH AGITATION Stop: 12/16/17 03:32 Sodium Biphosphate/Sodium Phosphate (Fleet Enema) [address] ONE PRN PRN Reason: Constipation Stop: 11/23/17 06:57
[2017-11-21] MEDS: Sodium Chloride 0.45% 1,000 ML IV SCH (20:25)
[2017-11-21] MEDS: Amlodipine 5 MG TAB PER TUBE SCH (20:31)
[2017-11-21] MEDS: Atorvastatin Calcium 20 MG TAB PO SCH (20:31)
[2017-11-22] MEDS: Propofol 1,000 MG/100 ML VIAL IV PRN ×3 (04:39→18:50)
[2017-11-22] MEDS: Sodium Chloride 0.45% 1,000 ML IV SCH ×2 (05:18→20:14)
[2017-11-22 06:43] LABS: #Eosinphils 0.1 thou/uL (0.0-0.7); #Lymphocytes 1.3 thou/uL (1.20-3.40); #Monocytes 0.8 thou/uL (0.11-0.59); #Neutrophils 6.8 thou/uL (1.40-6.50); %Basophils 0.4 % (0.0-1.0); %Eosinophils 0.9 % (0.0-10.0); %Lymphocytes 14.6 % (21.0-51.0); %Monocytes 8.5 % (0.0-10.0); %Neutrophils 75.5 % (42.0-75.0); Hemoglobin 9.7 g/dL (12.0-16.0); Mean Corpuscular HGB CONC 32.9 g/dL (32.0-36.0); Mean Corpuscular Hemoglobin 30.4 pg (27.0-31.0); Mean Corpuscular Volume 92.3 fL (78.0-98.0); Mean Platelet Volume 7.6 fL (7.4-10.4); Platelet Count 190 thou/uL (130-400); RBC Distribution Width 12.3 % (11.5-14.5)
[2017-11-22 06:56] LABS: Anion Gap 10 mmol/L (10-20); BUN (Urea Nitrogen) 19 mg/dL (9.8-20.1); Calc. Creatinine Clearance 55 mL/min (70-130); Calcium 8.5 mg/dL (7.8-10.44); Carbon Dioxide 23 mmol/L (23-31); Chloride 105 mmol/L (98-107); Estimated GFR-MDRD 53; Glucose 119 mg/dL (80-115); Potassium 3.8 mmol/L (3.5-5.1); Sodium 134 mmol/L (136-145)
[2017-11-22 07:02] LABS: ALV-art Gradient 36.735 (0-20); Actual Bicarbonate (HCO3a) 20.4 mEq/L (22-28); Base Excess (BEa) -2.7 mEq/L (-2.0 to +3.0); CO2 Tension 29.1 mmHg (35.0-45.0); Calcium, Ionized 1.1 mmol/L (1.12-1.30); Hemoglobin (Hb) 9.3 g/dL (12.0-16.0); O2 Tension (PaO2) 119.4 mmHg (> 80.0); Puncture Site RRA; pH, Arterial 7.46 (7.35-7.45)
--- NOTE | 2017-11-22 08:31 | RAD ---
PORTABLE CHEST: COMPARISON: Prior day's study. HISTORY: Respiratory distress. FINDINGS: The heart size is slightly enlarged. Endotracheal tube is in satisfactory position. NG tube is pull ed back. The tip of the tube is now in the distal esophagus. The lungs appear clear of infiltrates. IMPRESSION: 1. Borderline cardiomegaly. 2. Nasogastric tube is pulled back. The tip of the tube is at the GE junction and needs to be advan amira 2-3 inches. POS: OFF
--- NOTE | 2017-11-22 08:35 | PRG ---
DATE OF SERVICE: 11/22/2017 This morning she is on Diprivan. Nurses are saying she is having decerebrate posturing. PHYSICAL EXAMINATION: VITAL SIGNS: Her respiratory drive is all the way up to 42. She is on Diprivan now. Temperature is 101, pulse 105, blood pressure 120/62, unresponsive. HEENT: Pupils are 2 mm. CHEST: Chest reveals bilateral rhonchi and crackles. CARDIAC: ____. ABDOMEN: Soft, without any masses. LABORATORY: PO2 is 119, pCO2 ____, rate % 11, 27% FiO2. White count is only 9000, H&H 9 and 29, demian telet count is otherwise normal. IMPRESSION: 1. Status post cerebrovascular accident, status post intracerebral hemorrhage, status post craniotom y. 2. Decerebrate posturing. 3. Hypertension. PLAN: Prognosis remains grave. I had a lengthy discussion with the patient's family, a daughter and niece, who apparently is the power of assistant district attorney. She is day 6 on the vent. They want to continue all supportive care. Need further input from Neurology and Neurosurgery. In the meantime, nutrition and supportive care. One-half hour critical care time.
[2017-11-22] MEDS: Pantoprazole 40 MG VIAL IVP SCH (08:43)
[2017-11-22] MEDS: Hydrochlorothiazide 25 MG TAB PER TUBE SCH (08:44)
--- NOTE | 2017-11-22 10:51 | PRG ---
DATE OF SERVICE: 11/22/2017 SUBJECTIVE: Mrs. Waddell is off Precedex, but remains on propofol. She opens her right eye to stimu [place]. The left eye remains swollen. Movement in the upper extremities. There is a combination of wi thdrawal and reflex posturing. It does not correspond to a classic pattern. She definitely is perce iving painful stimulus with respect to a facial reaction. IMPRESSION AND PLAN: The patient's overall status is generally unchanged. Her level of consciousnes s is slightly increased from what it had been earlier in the week, but she remained highly debilitate d and given the extent of her dominant hemisphere injury, her prognosis remains poor for meaningful r ecovery. It is my opinion that a best case scenario would be survival with full dependent living in a facility . That would be a best case scenario and there remains a substantial possibility that she would not even recovery to that extent. I discussed this quite candidly with the family to try to aid with dec ision making. No further neurosurgical recommendations at this time.
[2017-11-22] MEDS: Amlodipine 5 MG TAB PER TUBE SCH (20:16)
[2017-11-22] MEDS: Atorvastatin Calcium 20 MG TAB PO SCH (20:16)
[2017-11-23] MEDS: Propofol 1,000 MG/100 ML VIAL IV PRN ×4 (02:11→20:13)
[2017-11-23 06:05] LABS: #Eosinphils 0.2 thou/uL (0.0-0.7); #Lymphocytes 1.5 thou/uL (1.20-3.40); #Monocytes 0.9 thou/uL (0.11-0.59); #Neutrophils 8.6 thou/uL (1.40-6.50); %Basophils 0.2 % (0.0-1.0); %Eosinophils 1.6 % (0.0-10.0); %Lymphocytes 13.4 % (21.0-51.0); %Monocytes 7.7 % (0.0-10.0); Hemoglobin 9.9 g/dL (12.0-16.0); Mean Corpuscular HGB CONC 32.6 g/dL (32.0-36.0); Mean Corpuscular Volume 91.8 fL (78.0-98.0); Platelet Count 228 thou/uL (130-400); RBC Distribution Width 12.4 % (11.5-14.5); White Blood Cell (WBC) Count 11.1 thou/uL (4.8-10.8)
[2017-11-23 06:16] LABS: Anion Gap 14 mmol/L (10-20); BUN (Urea Nitrogen) 19 mg/dL (9.8-20.1); Calc. Creatinine Clearance 59 mL/min (70-130); Calcium 8.2 mg/dL (7.8-10.44); Carbon Dioxide 22 mmol/L (23-31); Chloride 103 mmol/L (98-107); Estimated GFR-MDRD 57; Glucose 119 mg/dL (80-115); Potassium 4.3 mmol/L (3.5-5.1); Sodium 135 mmol/L (136-145)
--- NOTE | 2017-11-23 09:01 | PRG ---
DATE OF SERVICE: 11/23/2017 Mary Waddell is a 67-year-old female status post craniotomy, CVA. Neurosurgery saw the patient and spoke to the family. She was restarted on Precedex because of agitation. PHYSICAL EXAMINATION: VITAL SIGNS: Blood pressure 99/60, pulse 103, respiration rate 18. Sats are 90%, afebrile. CHEST: Chest reveals decreased breath sounds without any wheezing. CARDIAC: Normal S1, S2. No gallops. NECK: Soft, no masses. Chest x-ray is normal. White count 11,000, H&H 9.3 and 30. Electrolytes are normal. IMPRESSION: 1. Status post intracerebral hemorrhage, status post craniotomy. 2. Respiratory failure. 3. Encephalopathy. PLAN: I am not so sure she is weanable at this stage because of her severe agitation. Will discuss with family ongoing issues. It is unclear whether they want a trach and a PEG. We will try comfort measures. We will follow. One-half hour critical care time.
[2017-11-23] MEDS: Pantoprazole 40 MG VIAL IVP SCH (09:02)
[2017-11-23] MEDS: Hydrochlorothiazide 25 MG TAB PER TUBE SCH ×2 (09:03→09:16)
[2017-11-23] MEDS: Sodium Chloride 0.45% 1,000 ML IV SCH ×2 (09:03→21:11)
--- NOTE | 2017-11-23 10:41 | PDOC.PN ---
- Subjective Encounter Start Date: 11/22/17 Encounter Start Time: 13:00 Patient remains intubated , No sedation, no alertness, poor prgnosis s/p tPa - Objective Resuscitation Status: Resuscitation Status FULL:Full Resuscitation MAR Reviewed: Yes Vital Signs & Weight: Vital Signs (12 hours) Temp Pulse Resp BP Pulse Ox 11/23/17 08:00 99.2 F 19 11/23/17 07:19 89 98/60 11/23/17 06:00 18 11/23/17 05:00 98.9 F 11/23/17 04:00 20 11/23/17 02:15 115 H 11/23/17 02:00 20 11/23/17 00:32 106 H 24 H 100 11/23/17 00:00 98.9 F 21 H Weight Admit Weight 168 lb 3.392 oz Weight 168 lb 3.403 oz Most Recent Monitor Data Heart Rate from ECG 96 NIBP 81/50 NIBP BP-Mean 74 Respiration from ECG 23 SpO2 100 I&O: 11/22/17 11/23/17 11/24/17 06:59 06:59 06:59 Intake Total 2937.8 3219.3 30 Output Total 2695 2860 290 Balance 242.8 359.3 -260 Result Diagrams: 11/23/17 05:07 11/23/17 05:07 Phys Exam - Physical Examination Neck: no nodes, no JVD Respiratory: wheezing present Cardiovascular: RRR, no significant murmur Gastrointestinal: soft, non-tender Musculoskeletal: no edema, pulses present Lymphatic: no nodes Dx/Plan (1) Acute CVA (cerebrovascular accident) Code(s): I63.9 - CEREBRAL INFARCTION, UNSPECIFIED Status: Acute Comment: s/ p TPA on admission (2) Acute respiratory failure Code(s): J96.00 - ACUTE RESPIRATORY FAILURE, UNSP W HYPOXIA OR HYPERCAPNIA Status: Acute Comment: pt is intubated for airway protection (3) Encephalopathy acute Code(s): G93.40 - ENCEPHALOPATHY, UNSPECIFIED Status: Acute Comment: due to CVA, worsieng, pt is Poor prognsosis due to Bleed (4) ICH (intracerebral hemorrhage) Code(s): I61.9 - NONTRAUMATIC INTRACEREBRAL HEMORRHAGE, UNSPECIFIED Status: Acute Qualifiers: Cerebral hemorrhage location: cerebral hemisphere, cortical portion Laterality: left Comment: due to haemorragic conversion after TPA (5) Obstructive hydrocephalus Code(s): G91.1 - OBSTRUCTIVE HYDROCEPHALUS Status: Acute Comment: due to ICH (6) S/P craniotomy Status: Acute (7) CKD (chronic kidney disease) stage 3, GFR 30-59 ml/min Code(s): N18.3 - CHRONIC KIDNEY DISEASE, STAGE 3 (MODERATE) Status: Chronic Comment: worseing not much improvement, Will cotninue with IV fluids. (8) Cannabis abuse Code(s): F12.10 - CANNABIS ABUSE, UNCOMPLICATED Status: Chronic (9) HTN (hypertension) Code(s): I10 - ESSENTIAL (PRIMARY) HYPERTENSION Status: Chronic Comment: Controlled and permisive Hypertensiion >160 sysolic. - Plan cont current plan of care, social studies department chair, respiratory therapy, DVT proph w/ SCDs * . Review of Systems - Review of Systems Other: Unable to obtain ROS. - Medications/Allergies Allergies/Adverse Reactions: Allergies Allergy/AdvReac Type Severity Reaction Status Date / Time No Known Drug Allergies Allergy Verified 11/16/17 03:04 Medications: Current Medications Acetaminophen (Tylenol) 650 mg [place] Q6H PRN PRN Reason: Headache/Fever or Pain Last Admin: 11/21/17 12:00 Dose: 650 mg Albuterol Sulfate (Albuterol Sulfate) 1.25 mg NEB Q4H PRN PRN Reason: Wheezing Albuterol/Ipratropium (Duoneb) 3 ml NEB [id number] [facility] Last Admin: 11/23/17 07:17 Dose: 3 ml Amlodipine Besylate (Norvasc) 5 mg PER TUBE QPM [facility] Last Admin: 11/22/17 20:16 Dose: 5 mg Artificial Tears (Tears Renewed 15ml Bottle) 0 drop EA EYE PRN PRN PRN Reason: Dry Eyes Atorvastatin Calcium (Lipitor) 20 mg PO HS [facility] Last Admin: 11/22/17 20:16 Dose: 20 mg Bisacodyl (Dulcolax) 10 mg [place] DAILYPRN PRN PRN Reason: Constipation Hydralazine HCl (Apresoline) 10 mg SLOW IVP Q4H PRN PRN Reason: Systolic BP > 180 Last Admin: 11/19/17 23:09 Dose: 10 mg Hydrochlorothiazide (Hydrochlorothiazide) 12.5 mg PER TUBE QAM [facility] Last Admin: 11/23/17 09:16 Dose: Not Given Nicardipine HCl 25 mg/ Sodium (Chloride) 250 mls @ 0 mls/hr IVPB INF [facility]; Titrate PRN Reason: Protocol Last Admin: 11/18/17 12:35 Dose: 250 mls Sodium Chloride (1/2 Normal Saline) 1,000 mls @ 75 mls/hr IV .[id number] [facility] Last Admin: 11/23/17 09:03 Dose: 1,000 mls Dexmedetomidine HCl 200 mcg/ (Sodium Chloride) 50 mls @ 0 mls/hr IVPB INF [facility]; Titrate PRN Reason: Protocol Last Admin: 11/23/17 09:02 Dose: 50 mls Labetalol HCl (Normodyne) 20 mg SLOW IVP Q4H PRN PRN Reason: Systolic BP > 180 Last Admin: 11/19/17 10:10 Dose: 20 mg Metoclopramide HCl (Reglan) 5 mg IVP Q4H PRN PRN Reason: Nausea Mineral Oil/White Petrolatum (Eucerin Cream) 0 gm TOP BIDPRN PRN PRN Reason: Dry Skin Ondansetron HCl (Zofran) 4 mg IVP Q6H PRN PRN Reason: Nausea/Vomiting Pantoprazole Sodium (Protonix) 40 mg IVP DAILY [facility] Last Admin: 11/23/17 09:02 Dose: 40 mg Potassium Chloride (Klor-Con) 20 meq PO QAM[facility] Last Admin: 11/23/17 09:03 Dose: 20 meq Propofol (Diprivan) 1,000 mg IV INF PRN; Protocol PRN Reason: TO ACHIEVE GOAL RASS Stop: 12/16/17 03:32 Last Admin: 11/23/17 09:02 Dose: 1,000 mg Propofol (Diprivan Bolus) 20 mg IV Q5MIN PRN PRN Reason: BREAKTHROUGH AGITATION Stop: 12/16/17 03:32
--- NOTE | 2017-11-23 11:00 | RAD ---
PORTABLE SUPINE FRONTAL CHEST RADIOGRAPH: 11/23/2017 HISTORY: Ventilated patient. COMPARISON: 11/22/2017 TECHNIQUE: Supine imaging is provided, limiting assessment for pneumothorax and pleural fluid. FINDINGS: Heart and mediastinal contours are stable. Stable nasogastric tube and endotracheal tube. No lobar consolidation or alveolar edema. IMPRESSION: Stable appearance of the chest. POS: [facility]
--- NOTE | 2017-11-23 16:41 | PDOC.PN ---
- Subjective Encounter Start Date: 11/23/17 Encounter Start Time: 10:00 PAtient remains critical, intubated. Plan for discussion with family per Pulmonary about Weaning off the vent. - Objective Resuscitation Status: Resuscitation Status FULL:Full Resuscitation MAR Reviewed: Yes Vital Signs & Weight: Vital Signs (12 hours) Temp Pulse Resp BP Pulse Ox 11/23/17 16:00 24 H 11/23/17 14:23 101 H 101/63 11/23/17 14:00 19 11/23/17 12:00 99.8 F H 19 11/23/17 11:27 105 H 105/69 11/23/17 10:00 22 H 11/23/17 08:00 98.2 F 103 H 19 100 11/23/17 07:19 89 98/60 11/23/17 06:00 18 11/23/17 05:00 98.9 F Weight Admit Weight 168 lb 3.392 oz Weight 168 lb 3.403 oz Most Recent Monitor Data Heart Rate from ECG 101 NIBP 126/75 NIBP BP-Mean 87 Respiration from ECG 24 SpO2 100 I&O: 11/22/17 11/23/17 11/24/17 06:59 06:59 06:59 Intake Total 2937.8 3219.3 450 Output Total 2695 2860 1210 Balance 242.8 359.3 -760 Result Diagrams: 11/23/17 05:07 11/23/17 05:07 Radiology Reviewed by me: Yes Phys Exam - Physical Examination Neck: no nodes, no JVD Respiratory: wheezing present Cardiovascular: RRR, no significant murmur Gastrointestinal: soft, non-tender Musculoskeletal: no edema, pulses present Dx/Plan (1) Acute CVA (cerebrovascular accident) Code(s): I63.9 - CEREBRAL INFARCTION, UNSPECIFIED Status: Acute Comment: s/ p TPA on admission (2) Acute respiratory failure Code(s): J96.00 - ACUTE RESPIRATORY FAILURE, UNSP W HYPOXIA OR HYPERCAPNIA Status: Acute Comment: pt is intubated for airway protection, Plan on weaning after discssion with Family, poor prognosis, (3) Encephalopathy acute Code(s): G93.40 - ENCEPHALOPATHY, UNSPECIFIED Status: Acute Comment: due to CVA, worsieng, pt is Poor prognsosis due to Bleed (4) ICH (intracerebral hemorrhage) Code(s): I61.9 - NONTRAUMATIC INTRACEREBRAL HEMORRHAGE, UNSPECIFIED Status: Acute Qualifiers: Cerebral hemorrhage location: cerebral hemisphere, cortical portion Laterality: left Comment: due to haemorragic conversion after TPA (5) Obstructive hydrocephalus Code(s): G91.1 - OBSTRUCTIVE HYDROCEPHALUS Status: Acute Comment: due to ICH (6) S/P craniotomy Status: Acute (7) CKD (chronic kidney disease) stage 3, GFR 30-59 ml/min Code(s): N18.3 - CHRONIC KIDNEY DISEASE, STAGE 3 (MODERATE) Status: Chronic Comment: worseing not much improvement, Will cotninue with IV fluids. (8) Cannabis abuse Code(s): F12.10 - CANNABIS ABUSE, UNCOMPLICATED Status: Chronic (9) HTN (hypertension) Code(s): I10 - ESSENTIAL (PRIMARY) HYPERTENSION Status: Chronic Comment: Controlled and permisive Hypertensiion >160 sysolic. - Plan cont current plan of care, nursing home social worker, DVT proph w/SCDs * . Review of Systems - Review of Systems Other: Unable to obtain ROS , pt intubated. - Medications/Allergies Allergies/Adverse Reactions: Allergies Allergy/AdvReac Type Severity Reaction Status Date / Time No Known Drug Allergies Allergy Verified 11/16/17 03:04 Medications: Current Medications Acetaminophen (Tylenol) 650 mg SC Q6H PRN PRN Reason: Headache/Fever or Pain Last Admin: 11/21/17 12:00 Dose: 650 mg Albuterol Sulfate (Albuterol Sulfate) 1.25 mg NEB Q4H PRN PRN Reason: Wheezing Albuterol/Ipratropium (Duoneb) 3 ml NEB [id number] [facility] Last Admin: 11/23/17 14:21 Dose: 3 ml Amlodipine Besylate (Norvasc) 5 mg PER TUBE QPM [facility] Last Admin: 11/22/17 20:16 Dose: 5 mg Artificial Tears (Tears Renewed 15ml Bottle) 0 drop EA EYE PRN PRN PRN Reason: Dry Eyes Atorvastatin Calcium (Lipitor) 20 mg PO HS [facility] Last Admin: 11/22/17 20:16 Dose: 20 mg Bisacodyl (Dulcolax) 10 mg SC DAILYPRN PRN PRN Reason: Constipation Hydralazine HCl (Apresoline) 10 mg SLOW IVP Q4H PRN PRN Reason: Systolic BP > 180 Last Admin: 11/19/17 23:09 Dose: 10 mg Hydrochlorothiazide (Hydrochlorothiazide) 12.5 mg PER TUBE QAM [facility] Last Admin: 11/23/17 09:16 Dose: Not Given Nicardipine HCl 25 mg/ Sodium (Chloride) 250 mls @ 0 mls/hr IVPB INF [facility]; Titrate PRN Reason: Protocol Last Admin: 11/18/17 12:35 Dose: 250 mls Sodium Chloride (1/2 Normal Saline) 1,000 mls @ 75 mls/hr IV .[id number] [facility] Last Admin: 11/23/17 09:03 Dose: 1,000 mls Dexmedetomidine HCl 200 mcg/ (Sodium Chloride) 50 mls @ 0 mls/hr IVPB INF [facility]; Titrate PRN Reason: Protocol Last Admin: 11/23/17 09:02 Dose: 50 mls Labetalol HCl (Normodyne) 20 mg SLOW IVP Q4H PRN PRN Reason: Systolic BP > 180 Last Admin: 11/19/17 10:10 Dose: 20 mg Metoclopramide HCl (Reglan) 5 mg IVP Q4H PRN PRN Reason: Nausea Mineral Oil/White Petrolatum (Eucerin Cream) 0 gm TOP BIDPRN PRN PRN Reason: Dry Skin Ondansetron HCl (Zofran) 4 mg IVP Q6H PRN PRN Reason: Nausea/Vomiting Pantoprazole Sodium (Protonix) 40 mg IVP DAILY [facility] Last Admin: 11/23/17 09:02 Dose: 40 mg Potassium Chloride (Klor-Con) 20 meq PO QAM-[facility] Last Admin: 11/23/17 09:03 Dose: 20 meq Propofol (Diprivan) 1,000 mg IV INF PRN; Protocol PRN Reason: TO ACHIEVE GOAL RASS Stop: 12/16/17 03:32 Last Admin: 11/23/17 14:41 Dose: 1,000 mg Propofol (Diprivan Bolus) 20 mg IV Q5MIN PRN PRN Reason: BREAKTHROUGH AGITATION Stop: 12/16/17 03:32
[2017-11-23] MEDS: Amlodipine 5 MG TAB PER TUBE SCH (20:13)
[2017-11-23] MEDS: Atorvastatin Calcium 20 MG TAB PO SCH (20:13)
[2017-11-24] MEDS: Propofol 1,000 MG/100 ML VIAL IV PRN ×2 (02:55→11:35)
[2017-11-24 04:34] LABS: #Eosinphils 0.1 thou/uL (0.0-0.7); #Lymphocytes 1.2 thou/uL (1.20-3.40); #Monocytes 1.3 thou/uL (0.11-0.59); #Neutrophils 10.1 thou/uL (1.40-6.50); %Basophils 0.1 % (0.0-1.0); %Eosinophils 1.1 % (0.0-10.0); %Monocytes 10.4 % (0.0-10.0); %Neutrophils 79.4 % (42.0-75.0); Hemoglobin 10.8 g/dL (12.0-16.0); Mean Corpuscular HGB CONC 33.3 g/dL (32.0-36.0); Mean Corpuscular Hemoglobin 31.1 pg (27.0-31.0); Mean Corpuscular Volume 93.6 fL (78.0-98.0); Mean Platelet Volume 7.9 fL (7.4-10.4); Platelet Count 245 thou/uL (130-400); RBC Distribution Width 12.5 % (11.5-14.5); Red Blood Cell (RBC) Count 3.48 mill/uL (4.20-5.40); White Blood Cell (WBC) Count 12.8 thou/uL (4.8-10.8)
[2017-11-24 04:47] LABS: Anion Gap 16 mmol/L (10-20); BUN (Urea Nitrogen) 20 mg/dL (9.8-20.1); Calc. Creatinine Clearance 64 mL/min (70-130); Calcium 9.2 mg/dL (7.8-10.44); Carbon Dioxide 22 mmol/L (23-31); Chloride 101 mmol/L (98-107); Estimated GFR-MDRD 64; Glucose 124 mg/dL (80-115); Potassium 4.2 mmol/L (3.5-5.1); Sodium 135 mmol/L (136-145)
[2017-11-24 07:52] LABS: CO2 Tension 33.2 mmHg (35.0-45.0); pH, Arterial 7.47 (7.35-7.45)
[2017-11-24 07:54] LABS: Actual Bicarbonate (HCO3a) 23.8 mEq/L (22-28); Base Excess (BEa) 0.5 mEq/L (-2.0 to +3.0); O2 Tension (PaO2) 76.8 mmHg (> 80.0)
[2017-11-24 07:55] LABS: Hemoglobin (Hb) 10.4 g/dL (12.0-16.0)
[2017-11-24 07:58] LABS: Calcium, Ionized 1.1 mmol/L (1.12-1.30); Puncture Site RRA
[2017-11-24] MEDS: Pantoprazole 40 MG VIAL IVP SCH (09:23)
[2017-11-24] MEDS: Hydrochlorothiazide 25 MG TAB PER TUBE SCH (09:23)
[2017-11-24] MEDS: Sodium Chloride 0.45% 1,000 ML IV SCH (09:28)
--- NOTE | 2017-11-24 11:02 | EKG ---
Test Reason : STROKE Blood Pressure : / mmHG Vent. Rate : 098 BPM Atrial Rate : 098 BPM P-R Int : 192 ms QRS Dur : 082 ms QT Int : 364 ms P-R-T Axes : 075 -06 087 degrees QTc Int : 464 ms Normal sinus rhythm Possible Left atrial enlargement Nonspecific ST abnormality Abnormal ECG No ST elevation/MS Confirmed by STEPHANIE FONTAINE M.D. ([id number]), market editor STEVE CHILDERS ([id number]) on 11/24/2017 11:01:36 AM Referred By: Confirmed By:STEPHANIE FONTAINE M.D.
--- NOTE | 2017-11-24 12:36 | PRG ---
DATE OF SERVICE: 11/24/2017 SUBJECTIVE: This is a 67-year-old female who is intubated on the vent with Precedex and dipravan. She was extremely agitated over the last 48 hours. PHYSICAL EXAMINATION: VITAL SIGNS: Pulse 104, blood pressure 127/77, sats 90%, respiration 19. HEENT: Pupils are equal. NEUROLOGIC: Neurologically, she is sedated. CHEST: Anterior rhonchi. CARDIAC: Normal S1, S2. No gallops or mass. LABORATORY DATA: PO2 is 76, pCO2 of 36 27% FiO2. Electrolytes are normal. IMPRESSION: Status post craniotomy and intracerebral hemorrhage. PLAN: Once again, there was a lengthy discussion with the family about overall prognosis being poor. She is not weanable until the agitation is decreased. We will continue PT and supportive care. Nothing additional to offer. Nutrition and PT. One-half hour critical care time. ADITI
[2017-11-24] MEDS: Bisacodyl 10 MG SUPP PR PRN (17:42)
--- NOTE | 2017-11-24 20:37 | PDOC.PN ---
- Subjective Encounter Start Date: 11/24/17 Encounter Start Time: 13:30 -: non-verbal Patient seen and examined for Acute CVA. On [facility] Vent. - Objective Resuscitation Status: Resuscitation Status FULL:Full Resuscitation MAR Reviewed: Yes Vital Signs & Weight: Vital Signs (12 hours) Temp Pulse Resp BP Pulse Ox 11/24/17 18:32 95 11/24/17 18:30 92 17 98 11/24/17 17:58 22 H 11/24/17 15:58 116 H 116/59 L 11/24/17 15:53 98.6 F 28 H 11/24/17 13:47 24 H 11/24/17 13:16 106 H 21 H 100 11/24/17 12:49 98.8 F 11/24/17 11:52 19 11/24/17 11:39 104 H 112/65 11/24/17 10:00 15 Weight Admit Weight 168 lb 3.392 oz Weight 168 lb 3.403 oz Most Recent Monitor Data Heart Rate from ECG 101 NIBP 106/64 NIBP BP-Mean 72 Respiration from ECG 15 SpO2 96 I&O: 11/23/17 11/24/17 11/25/17 06:59 06:59 06:59 Intake Total 3219.3 3696.4 1544.7 Output Total 2860 2550 1240 Balance 359.3 1146.4 304.7 Result Diagrams: 11/24/17 03:48 11/24/17 03:48 EKG Reviewed by me: Yes (Tele SR) Phys Exam - Physical Examination Constitutional: NAD on Vent Respiratory: no wheezing, no rhonchi Cardiovascular: RRR, no rub Gastrointestinal: soft, positive bowel sounds Musculoskeletal: no edema Dx/Plan - Plan DVT proph w/SCDs IMPRESSION: 1. Acute CVA s/p TPA - No antiplatelets or anticoag due to intracranial bleed 2. Intracranial bleed s/p Craniotomy 3. Acue hypoxic resp failure 4. HTN 5. Cannabis abuse 6. CKD 2 7. Hypokalemia - resolved PLAN: Cont supportive care Cont tube feeds AM labs Review of Systems - Review of Systems Other: Cannot obtain due to current mentation - Medications/Allergies Allergies/Adverse Reactions: Allergies Allergy/AdvReac Type Severity Reaction Status Date / Time No Known Drug Allergies Allergy Verified 11/16/17 03:04 Medications: Current Medications Acetaminophen (Tylenol) 650 mg SD Q6H PRN PRN Reason: Headache/Fever or Pain Last Admin: 11/21/17 12:00 Dose: 650 mg Albuterol Sulfate (Albuterol Sulfate) 1.25 mg NEB Q4H PRN PRN Reason: Wheezing Albuterol/Ipratropium (Duoneb) 3 ml NEB [id number] [facility] Last Admin: 11/24/17 18:30 Dose: 3 ml Amlodipine Besylate (Norvasc) 5 mg PER TUBE QPM [facility] Last Admin: 11/23/17 20:13 Dose: 5 mg Artificial Tears (Tears Renewed 15ml Bottle) 0 drop EA EYE PRN PRN PRN Reason: Dry Eyes Atorvastatin Calcium (Lipitor) 20 mg PO HS [facility] Last Admin: 11/23/17 20:13 Dose: 20 mg Bisacodyl (Dulcolax) 10 mg SD DAILYPRN PRN PRN Reason: Constipation Last Admin: 11/24/17 17:42 Dose: 10 mg Hydralazine HCl (Apresoline) 10 mg SLOW IVP Q4H PRN PRN Reason: Systolic BP > 180 Last Admin: 11/19/17 23:09 Dose: 10 mg Hydrochlorothiazide (Hydrochlorothiazide) 12.5 mg PER TUBE QAM [facility] Last Admin: 11/24/17 09:23 Dose: 12.5 mg Nicardipine HCl 25 mg/ Sodium (Chloride) 250 mls @ 0 mls/hr IVPB INF [facility]; Titrate PRN Reason: Protocol Last Admin: 11/18/17 12:35 Dose: 250 mls Sodium Chloride (1/2 Normal Saline) 1,000 mls @ 75 mls/hr IV .[id number] [facility] Last Admin: 11/24/17 09:28 Dose: 1,000 mls Dexmedetomidine HCl 200 mcg/ (Sodium Chloride) 50 mls @ 0 mls/hr IVPB INF [facility]; Titrate PRN Reason: Protocol Last Admin: 11/24/17 11:55 Dose: 50 mls Labetalol HCl (Normodyne) 20 mg SLOW IVP Q4H PRN PRN Reason: Systolic BP > 180 Last Admin: 11/19/17 10:10 Dose: 20 mg Metoclopramide HCl (Reglan) 5 mg IVP Q4H PRN PRN Reason: Nausea Last Admin: 11/24/17 17:41 Dose: 5 mg Mineral Oil/White Petrolatum (Eucerin Cream) 0 gm TOP BIDPRN PRN PRN Reason: Dry Skin Ondansetron HCl (Zofran) 4 mg IVP Q6H PRN PRN Reason: Nausea/Vomiting Pantoprazole Sodium (Protonix) 40 mg IVP DAILY [facility] Last Admin: 11/24/17 09:23 Dose: 40 mg Potassium Chloride (Klor-Con) 20 meq PO QA-[facility] Last Admin: 11/24/17 09:23 Dose: 20 meq Propofol (Diprivan) 1,000 mg IV INF PRN; Protocol PRN Reason: TO ACHIEVE GOAL RASS Stop: 12/16/17 03:32 Last Admin: 11/24/17 11:35 Dose: 1,000 mg Propofol (Diprivan Bolus) 20 mg IV Q5MIN PRN PRN Reason: BREAKTHROUGH AGITATION Stop: 12/16/17 03:32
[2017-11-24] MEDS: Amlodipine 5 MG TAB PER TUBE SCH (21:23)
[2017-11-24] MEDS: Atorvastatin Calcium 20 MG TAB PO SCH (21:23)
[2017-11-25] MEDS: Sodium Chloride 0.45% 1,000 ML IV SCH ×2 (02:22→10:47)
[2017-11-25 07:02] LABS: Band 24 % (5-11); Eosinophils 1 % (0-10); Hemoglobin 10.3 g/dL (12.0-16.0); Lymphocytes 5 % (21-51); MDiff Complete? YES; Mean Corpuscular HGB CONC 31.8 g/dL (32.0-36.0); Mean Corpuscular Hemoglobin 29.4 pg (27.0-31.0); Mean Corpuscular Volume 92.5 fL (78.0-98.0); Mean Platelet Volume 8.5 fL (7.4-10.4); Metamyelocyte 1 % (0-0); Monocytes 6 % (0-10); Neutrophil 63 % (42-75); PLT Morphology Comment Appears Adequate; Platelet Count 253 thou/uL (130-400); RBC Distribution Width 12.3 % (11.5-14.5); Red Blood Cell (RBC) Count 3.51 mill/uL (4.20-5.40); White Blood Cell (WBC) Count 20.3 thou/uL (4.8-10.8)
[2017-11-25 08:39] LABS: Actual Bicarbonate (HCO3a) 24.7 mEq/L (22-28); O2 Tension (PaO2) 66.4 mmHg (> 80.0); pH, Arterial 7.51 (7.35-7.45)
[2017-11-25] MEDS: Hydrochlorothiazide 25 MG TAB PER TUBE SCH (08:39)
[2017-11-25] MEDS: Pantoprazole 40 MG VIAL IVP SCH (08:39)
[2017-11-25 08:40] LABS: Calcium, Ionized 1.2 mmol/L (1.12-1.30); Hemoglobin (Hb) 10.4 g/dL (12.0-16.0)
[2017-11-25 08:41] LABS: Puncture Site RRA
[2017-11-25 08:42] LABS: Anion Gap 14 mmol/L (10-20); BUN (Urea Nitrogen) 21 mg/dL (9.8-20.1); Calc. Creatinine Clearance 61 mL/min (70-130); Carbon Dioxide 22 mmol/L (23-31); Chloride 100 mmol/L (98-107); Estimated GFR-MDRD 62; Glucose 127 mg/dL (80-115); Magnesium 2.4 mg/dL (1.6-2.6); Phosphorus 3.7 mg/dL (2.3-4.7); Potassium 5.2 mmol/L (3.5-5.1); Sodium 131 mmol/L (136-145)
--- NOTE | 2017-11-25 10:02 | PRG ---
DATE OF SERVICE: 11/25/2017 SUBJECTIVE: This morning, the patient is still on Precedex and Diprivan because of marked respirator y distress. OBJECTIVE: VITAL SIGNS: Temperature 99, respiration 22, blood pressure is 130/69. CHEST: Extensive rhonchi. CARDIAC: Normal S1, S2. No gallops. ABDOMEN: Distended. LABORATORY DATA: White count 20,000, H&H is 10 and 32, platelet count 253, pO2 of 66, pCO2 on a rate of 10. Sodium is 131. Electrolytes are normal. IMPRESSION: 1. Status post cerebrovascular accident, hemorrhage, status post TPA, craniotomy. 2. Encephalopathy. PLAN: The patient is not weanable. Family wants all supportive care. They want a trach and PEG. W e will probably have General Surgery to do a Trach and PEG early next week. Would not weanable at this time. Continue to follow. Continue antibiotics. One-half hour critical care time.
[2017-11-25] MEDS: Piperacillin/Tazobactam 3.375 GM in Sodium Chloride 0.9% 100 ML IVPB SCH ×2 (11:27→17:05)
[2017-11-25] MEDS: Propofol 1,000 MG/100 ML VIAL IV PRN (14:27)
--- NOTE | 2017-11-25 16:59 | EKG ---
Test Reason : Blood Pressure : / mmHG Vent. Rate : 068 BPM Atrial Rate : 068 BPM P-R Int : 140 ms QRS Dur : 082 ms QT Int : 464 ms P-R-T Axes : 056 -08 053 degrees QTc Int : 493 ms Poor data quality, interpretation may be adversely affected Normal sinus rhythm Prolonged QT Abnormal ECG When compared with ECG of 16-NOV-2017 00:52, (Unconfirmed) No significant change was found Confirmed by KAPIL TAVAREZ ([id number]) on 11/25/2017 4:58:41 PM Referred By: TANVI Confirmed By:KAPIL TAVAREZ
--- NOTE | 2017-11-25 18:28 | PDOC.PN ---
- Subjective Encounter Start Date: 11/25/17 Encounter Start Time: 09:00 Patient seen and examined for Resp failure/CVA. On [facility] Vent. No overnight events - Objective Resuscitation Status: Resuscitation Status FULL:Full Resuscitation MAR Reviewed: Yes Vital Signs & Weight: Vital Signs (12 hours) Temp Pulse Pulse Pulse Resp BP BP 11/25/17 18:20 113 H 11/25/17 18:19 112 H 24 H 11/25/17 17:48 23 H 11/25/17 15:57 99 109 H 106/64 11/25/17 15:51 98.4 F 22 H 11/25/17 14:45 110 H 116/68 11/25/17 14:21 121 H 33 H 11/25/17 13:51 25 H 11/25/17 11:55 24 H 11/25/17 10:52 97 114/71 11/25/17 10:50 98.8 F 11/25/17 09:51 22 H 11/25/17 08:00 22 H 11/25/17 07:35 99.1 F 115 H 22 H 11/25/17 07:30 117 H 145/78 H 11/25/17 07:29 117 H 26 H 11/25/17 07:00 99.1 F BP Pulse Ox Pulse Ox Pulse Ox 11/25/17 18:20 11/25/17 18:19 100 11/25/17 17:48 11/25/17 15:57 113/72 99 100 11/25/17 15:51 11/25/17 14:45 11/25/17 14:21 100 11/25/17 13:51 11/25/17 11:55 11/25/17 10:52 11/25/17 10:50 11/25/17 09:51 11/25/17 08:00 11/25/17 07:35 98 11/25/17 07:30 11/25/17 07:29 100 11/25/17 07:00 Weight Admit Weight 168 lb 3.392 oz Weight 162 lb 0.636 oz Most Recent Monitor Data Heart Rate from ECG 109 NIBP 110/65 NIBP BP-Mean 81 Respiration from ECG 21 SpO2 100 I&O: 11/24/17 11/25/17 11/26/17 06:59 06:59 06:59 Intake Total 3696.4 3028.3 1510.8 Output Total 2550 2420 1035 Balance 1146.4 608.3 475.8 Result Diagrams: 11/25/17 06:13 11/25/17 06:13 Phys Exam - Physical Examination Constitutional: NAD Respiratory: no wheezing, no rales Scat rhonchi Cardiovascular: RRR, no rub Gastrointestinal: soft, positive bowel sounds Musculoskeletal: no edema Neurological: moves all 4 limbs Dx/Plan - Plan DVT proph w/SCDs IMPRESSION: 1. Acute CVA s/p TPA - No antiplatelets or anticoag due to intracranial bleed 2. Intracranial bleed s/p Craniotomy 3. Acue hypoxic resp failure 4. HTN 5. Cannabis abuse 6. CKD 2 7. Hypokalemia - resolved PLAN: Cont Vent support Trach/PEG per family req Cont supportive care Cont tube feeds AM labs Review of Systems - Review of Systems Other: Cannot obtain due to sedation - Medications/Allergies Allergies/Adverse Reactions: Allergies Allergy/AdvReac Type Severity Reaction Status Date / Time No Known Drug Allergies Allergy Verified 11/16/17 03:04 Medications: Current Medications Acetaminophen (Tylenol) 650 mg [place] Q6H PRN PRN Reason: Headache/Fever or Pain Last Admin: 11/21/17 12:00 Dose: 650 mg Albuterol Sulfate (Albuterol Sulfate) 1.25 mg NEB Q4H PRN PRN Reason: Wheezing Albuterol/Ipratropium (Duoneb) 3 ml NEB [id number] [facility] Last Admin: 11/25/17 18:19 Dose: 3 ml Amlodipine Besylate (Norvasc) 5 mg PER TUBE QPM [facility] Last Admin: 11/24/17 21:23 Dose: 5 mg Artificial Tears (Tears Renewed 15ml Bottle) 0 drop EA EYE PRN PRN PRN Reason: Dry Eyes Atorvastatin Calcium (Lipitor) 20 mg PO HS [facility] Last Admin: 11/24/17 21:23 Dose: 20 mg Bisacodyl (Dulcolax) 10 mg VT DAILYPRN PRN PRN Reason: Constipation Last Admin: 11/24/17 17:42 Dose: 10 mg Hydralazine HCl (Apresoline) 10 mg SLOW IVP Q4H PRN PRN Reason: Systolic BP > 180 Last Admin: 11/19/17 23:09 Dose: 10 mg Hydrochlorothiazide (Hydrochlorothiazide) 12.5 mg PER TUBE QAM [facility] Last Admin: 11/25/17 08:39 Dose: 12.5 mg Nicardipine HCl 25 mg/ Sodium (Chloride) 250 mls @ 0 mls/hr IVPB INF [facility]; Titrate PRN Reason: Protocol Last Admin: 11/18/17 12:35 Dose: 250 mls Sodium Chloride (1/2 Normal Saline) 1,000 mls @ 75 mls/hr IV .[id number] [facility] Last Admin: 11/25/17 10:47 Dose: 1,000 mls Dexmedetomidine HCl 200 mcg/ (Sodium Chloride) 50 mls @ 0 mls/hr IVPB INF [facility]; Titrate PRN Reason: Protocol Last Admin: 11/25/17 17:05 Dose: 50 mls Piperacillin Sod/Tazobactam (Sod 3.375 gm/ Sodium Chloride) 100 mls @ 200 mls/ hr IVPB Q6HR [facility] Last Admin: 11/25/17 17:05 Dose: 100 mls Labetalol HCl (Normodyne) 20 mg SLOW IVP Q4H PRN PRN Reason: Systolic BP > 180 Last Admin: 11/19/17 10:10 Dose: 20 mg Metoclopramide HCl (Reglan) 5 mg IVP Q4H PRN PRN Reason: Nausea Last Admin: 11/24/17 17:41 Dose: 5 mg Mineral Oil/White Petrolatum (Eucerin Cream) 0 gm TOP BIDPRN PRN PRN Reason: Dry Skin Ondansetron HCl (Zofran) 4 mg IVP Q6H PRN PRN Reason: Nausea/Vomiting Pantoprazole Sodium (Protonix) 40 mg IVP DAILY [facility] Last Admin: 11/25/17 08:39 Dose: 40 mg Propofol (Diprivan) 1,000 mg IV INF PRN; Protocol PRN Reason: TO ACHIEVE GOAL RASS Stop: 12/16/17 03:32 Last Admin: 11/25/17 14:27 Dose: 1,000 mg Propofol (Diprivan Bolus) 20 mg IV Q5MIN PRN PRN Reason: BREAKTHROUGH AGITATION Stop: 12/16/17 03:32
[2017-11-25] MEDS: Atorvastatin Calcium 20 MG TAB PO SCH (21:04)
[2017-11-25] MEDS: Amlodipine 5 MG TAB PER TUBE SCH (21:04)
[2017-11-26] MEDS: Piperacillin/Tazobactam 3.375 GM in Sodium Chloride 0.9% 100 ML IVPB SCH ×4 (00:10→17:27)
[2017-11-26] MEDS: Propofol 1,000 MG/100 ML VIAL IV PRN ×2 (03:58→13:03)
[2017-11-26] MEDS: Sodium Chloride 0.45% 1,000 ML IV SCH ×2 (04:00→13:03)
[2017-11-26 05:22] LABS: Anion Gap 14 mmol/L (10-20); BUN (Urea Nitrogen) 20 mg/dL (9.8-20.1); Calc. Creatinine Clearance 65 mL/min (70-130); Calcium 9.2 mg/dL (7.8-10.44); Carbon Dioxide 22 mmol/L (23-31); Chloride 101 mmol/L (98-107); Estimated GFR-MDRD 62; Glucose 130 mg/dL (80-115); Sodium 133 mmol/L (136-145)
[2017-11-26 06:10] LABS: Band 6 % (5-11); Hemoglobin 10.1 g/dL (12.0-16.0); Hypochromia SLIGHT = 6-15 cells (100X) (0-5/hpf); Lymphocytes 7 % (21-51); MDiff Complete? YES; Mean Corpuscular HGB CONC 33.2 g/dL (32.0-36.0); Mean Corpuscular Hemoglobin 30.8 pg (27.0-31.0); Mean Corpuscular Volume 92.8 fL (78.0-98.0); Mean Platelet Volume 7.7 fL (7.4-10.4); Monocytes 2 % (0-10); Neutrophil 85 % (42-75); PLT Morphology Comment Appears Adequate; Platelet Count 270 thou/uL (130-400); RBC Distribution Width 12.3 % (11.5-14.5); Red Blood Cell (RBC) Count 3.28 mill/uL (4.20-5.40); White Blood Cell (WBC) Count 19.2 thou/uL (4.8-10.8)
[2017-11-26 07:30] LABS: Actual Bicarbonate (HCO3a) 24.6 mEq/L (22-28); Base Excess (BEa) 1.8 mEq/L (-2.0 to +3.0); CO2 Tension 32.2 mmHg (35.0-45.0); O2 Tension (PaO2) 75.8 mmHg (> 80.0)
[2017-11-26 07:31] LABS: Calcium, Ionized 1.2 mmol/L (1.12-1.30)
[2017-11-26 07:32] LABS: Puncture Site RRA
[2017-11-26] MEDS: Hydrochlorothiazide 25 MG TAB PER TUBE SCH (08:16)
[2017-11-26] MEDS: Pantoprazole 40 MG VIAL IVP SCH (08:18)
--- NOTE | 2017-11-26 08:53 | PRG ---
DATE OF SERVICE: 11/26/2017 This morning, the patient is unresponsive, sedated on Diprivan and Precedex. PHYSICAL EXAMINATION: VITAL SIGNS: Temperature 99, blood pressure 122/75, respiration rate 18. NEURO: She is encephalopathic. CHEST: Chest revealed decreased breath sounds, anterior rhonchi. CARDIAC: Normal S1, S2, no gallops. ABDOMEN: Soft, no masses. LABORATORY DATA: White count 19,000, H&H 10 and 30, platelet count 270, pO2 75, pCO2 of 37.50 on a r ate of 10, 27. Electrolytes are normal. IMPRESSION: 1. Status post large acute intracerebral hemorrhage with obstructive hydrocephalus and intraventricu lar hemorrhage. Dr. Aguilera spoke to the family at length. No surgical intervention is planned. 2. Metabolic encephalopathy. 3. Respiratory failure. PLAN: The family wants everything to be done, also a trach and a PEG. We will arrange for a trach and a PEG. Eventually long-term placement. One-half hour critical care time.
--- NOTE | 2017-11-26 20:47 | PDOC.PN ---
- Subjective Encounter Start Date: 11/26/17 Encounter Start Time: 10:00 -: non-verbal Patient seen and examined for CVA s/p TPA. On [facility] Vent. - Objective Resuscitation Status: Resuscitation Status FULL:Full Resuscitation MAR Reviewed: Yes Vital Signs & Weight: Vital Signs (12 hours) Temp Pulse Pulse Pulse Resp BP BP 11/26/17 19:14 98 21 H 11/26/17 18:00 15 11/26/17 17:29 90 140/74 11/26/17 15:45 98.6 F 19 11/26/17 15:32 99 104 H 100/75 11/26/17 14:00 18 11/26/17 13:38 99 16 11/26/17 11:49 98.7 F 18 11/26/17 11:17 96 104/61 11/26/17 10:54 98.8 F 11/26/17 09:50 19 BP Pulse Ox Pulse Ox Pulse Ox 11/26/17 19:14 100 11/26/17 18:00 11/26/17 17:29 11/26/17 15:45 11/26/17 15:32 124/72 96 100 11/26/17 14:00 11/26/17 13:38 100 11/26/17 11:49 11/26/17 11:17 11/26/17 10:54 11/26/17 09:50 Weight Admit Weight 168 lb 3.392 oz Weight 175 lb 0.752 oz Most Recent Monitor Data Heart Rate from ECG 96 NIBP 120/75 NIBP BP-Mean 90 Respiration from ECG 14 SpO2 100 I&O: 11/25/17 11/26/17 11/27/17 06:59 06:59 06:59 Intake Total 3028.3 2988.1 1148.4 Output Total 2420 2565 1180 Balance 608.3 423.1 -31.6 Result Diagrams: 11/26/17 04:48 11/26/17 04:48 EKG Reviewed by me: Yes (Tele SR) Phys Exam - Physical Examination on Vent Respiratory: no wheezing Scat rhonchi Cardiovascular: RRR, no rub Gastrointestinal: soft, positive bowel sounds Musculoskeletal: no edema Dx/Plan - Plan DVT proph w/SCDs IMPRESSION: 1. Acute CVA s/p TPA - No antiplatelets or anticoag due to intracranial bleed 2. Intracranial bleed s/p Craniotomy 3. Acue hypoxic resp failure - on Vent 4. HTN 5. Cannabis abuse 6. CKD 2 7. Hypokalemia - resolved PLAN: Trach/PEG per family req Cont current meds as below Cont tube feeds at current rate AM labs Cont Vent support Review of Systems - Review of Systems Other: Cannot obtain due to current mentation. - Medications/Allergies Allergies/Adverse Reactions: Allergies Allergy/AdvReac Type Severity Reaction Status Date / Time No Known Drug Allergies Allergy Verified 11/16/17 03:04 Medications: Current Medications Acetaminophen (Tylenol) 650 mg PA Q6H PRN PRN Reason: Headache/Fever or Pain Last Admin: 11/21/17 12:00 Dose: 650 mg Albuterol Sulfate (Albuterol Sulfate) 1.25 mg NEB Q4H PRN PRN Reason: Wheezing Albuterol/Ipratropium (Duoneb) 3 ml NEB [id number] [facility] Last Admin: 11/26/17 19:14 Dose: 3 ml Amlodipine Besylate (Norvasc) 5 mg PER TUBE QPM [facility] Last Admin: 11/25/17 21:04 Dose: 5 mg Artificial Tears (Tears Renewed 15ml Bottle) 0 drop EA EYE PRN PRN PRN Reason: Dry Eyes Atorvastatin Calcium (Lipitor) 20 mg PO HS [facility] Last Admin: 11/25/17 21:04 Dose: 20 mg Bisacodyl (Dulcolax) 10 mg PA DAILYPRN PRN PRN Reason: Constipation Last Admin: 11/24/17 17:42 Dose: 10 mg Hydralazine HCl (Apresoline) 10 mg SLOW IVP Q4H PRN PRN Reason: Systolic BP > 180 Last Admin: 11/19/17 23:09 Dose: 10 mg Hydrochlorothiazide (Hydrochlorothiazide) 12.5 mg PER TUBE QAM [facility] Last Admin: 11/26/17 08:16 Dose: Not Given Nicardipine HCl 25 mg/ Sodium (Chloride) 250 mls @ 0 mls/hr IVPB INF [facility]; Titrate PRN Reason: Protocol Last Admin: 11/18/17 12:35 Dose: 250 mls Sodium Chloride (1/2 Normal Saline) 1,000 mls @ 75 mls/hr IV .[id number] [facility] Last Admin: 11/26/17 13:03 Dose: 1,000 mls Dexmedetomidine HCl 200 mcg/ (Sodium Chloride) 50 mls @ 0 mls/hr IVPB INF [facility]; Titrate PRN Reason: Protocol Last Admin: 11/26/17 13:18 Dose: 50 mls Piperacillin Sod/Tazobactam (Sod 3.375 gm/ Sodium Chloride) 100 mls @ 200 mls/ hr IVPB Q6HR [facility] Last Admin: 11/26/17 17:27 Dose: 100 mls Labetalol HCl (Normodyne) 20 mg SLOW IVP Q4H PRN PRN Reason: Systolic BP > 180 Last Admin: 11/19/17 10:10 Dose: 20 mg Metoclopramide HCl (Reglan) 5 mg IVP Q4H PRN PRN Reason: Nausea Last Admin: 11/24/17 17:41 Dose: 5 mg Mineral Oil/White Petrolatum (Eucerin Cream) 0 gm TOP BIDPRN PRN PRN Reason: Dry Skin Ondansetron HCl (Zofran) 4 mg IVP Q6H PRN PRN Reason: Nausea/Vomiting Pantoprazole Sodium (Protonix) 40 mg IVP DAILY [facility] Last Admin: 11/26/17 08:18 Dose: 40 mg Propofol (Diprivan) 1,000 mg IV INF PRN; Protocol PRN Reason: TO ACHIEVE GOAL RASS Stop: 12/16/17 03:32 Last Admin: 11/26/17 13:03 Dose: 1,000 mg Propofol (Diprivan Bolus) 20 mg IV Q5MIN PRN PRN Reason: BREAKTHROUGH AGITATION Stop: 12/16/17 03:32
[2017-11-26] MEDS: Amlodipine 5 MG TAB PER TUBE SCH (21:39)
[2017-11-26] MEDS: Atorvastatin Calcium 20 MG TAB PO SCH (21:39)
[2017-11-27] MEDS: Piperacillin/Tazobactam 3.375 GM in Sodium Chloride 0.9% 100 ML IVPB SCH ×4 (00:42→17:18)
[2017-11-27] MEDS: Sodium Chloride 0.45% 1,000 ML IV SCH ×3 (00:45→18:26)
[2017-11-27 06:12] LABS: Anion Gap 15 mmol/L (10-20); BUN (Urea Nitrogen) 20 mg/dL (9.8-20.1); Calc. Creatinine Clearance 64 mL/min (70-130); Calcium 9.5 mg/dL (7.8-10.44); Carbon Dioxide 25 mmol/L (23-31); Chloride 100 mmol/L (98-107); Estimated GFR-MDRD 61; Glucose 105 mg/dL (80-115); Potassium 4.3 mmol/L (3.5-5.1); Sodium 136 mmol/L (136-145)
[2017-11-27 06:19] LABS: Band 2 % (5-11); Hemoglobin 9.7 g/dL (12.0-16.0); Lymphocytes 11 % (21-51); MDiff Complete? YES; Mean Corpuscular Hemoglobin 30.4 pg (27.0-31.0); Mean Corpuscular Volume 92.3 fL (78.0-98.0); Mean Platelet Volume 7.6 fL (7.4-10.4); Metamyelocyte 1 % (0-0); Monocytes 8 % (0-10); Myelocyte 1 % (0-0); Neutrophil 77 % (42-75); PLT Morphology Comment Appears Adequate; Platelet Count 352 thou/uL (130-400); RBC Distribution Width 12.3 % (11.5-14.5); Red Blood Cell (RBC) Count 3.19 mill/uL (4.20-5.40); White Blood Cell (WBC) Count 15.2 thou/uL (4.8-10.8)
[2017-11-27 07:00] LABS: ALV-art Gradient 64.785 (0-20); Actual Bicarbonate (HCO3a) 22.9 mEq/L (22-28); Base Excess (BEa) -0.5 mEq/L (-2.0 to +3.0); CO2 Tension 32.5 mmHg (35.0-45.0); Calcium, Ionized 1.2 mmol/L (1.12-1.30); Hemoglobin (Hb) 8.6 g/dL (12.0-16.0); O2 Tension (PaO2) 87.1 mmHg (> 80.0); Puncture Site RRA; pH, Arterial 7.47 (7.35-7.45)
--- NOTE | 2017-11-27 08:46 | PRG ---
DATE OF SERVICE: 11/27/2017 She remains intubated on the vent on sedation Diprivan and Precedex. PHYSICAL EXAMINATION: VITAL SIGNS: Sats are 99%, respirations 22, blood pressure 120/70. NEUROLOGIC: She is unresponsive. Major agitation following decrease of sedation. CHEST: Extensive rhonchi and crackles. CARDIAC: Normal S1-S2. No gallops. ABDOMEN: No masses. LABORATORY: White count 15,000, H&H 9 and 29, platelet count normal. Electrolytes are normal. Resp iratory secretion growing Proteus, sensitive to all the antibiotics. IMPRESSION: 1. Status post craniotomy. 2. Cerebrovascular accident. 3. Retained secretions. 4. Encephalopathy 5. Renal failure. PLAN: Trach and PEG will be scheduled as per the family's wishes. Surgery has been consulted. Eventually placement. One-half hour critical care time.
[2017-11-27] MEDS: Pantoprazole 40 MG VIAL IVP SCH (09:08)
[2017-11-27] MEDS: Cefepime 1 GM in Sodium Chloride 0.9% 100 ML IVPB SCH ×2 (09:08→20:08)
[2017-11-27] MEDS: Hydrochlorothiazide 25 MG TAB PER TUBE SCH (09:09)
[2017-11-27] MEDS ORDERED: Lidocaine 1% w/Epinephrine 1:100K 20 ML VIAL ONE (10:00)
[2017-11-27] MEDS ORDERED: Vecuronium 10 MG VIAL ONE (10:01)
[2017-11-27] MEDS: Fentanyl 100 MCG/2 ML VIAL ONE ×2 (11:48→12:30)
[2017-11-27] MEDS ORDERED: Fentanyl 100 MCG/2 ML VIAL ONE (12:07)
--- NOTE | 2017-11-27 13:16 | OP ---
DATE OF PROCEDURE: 11/27/2017 PREOPERATIVE DIAGNOSES: 1. Status post cerebrovascular accident. 2. Acute respiratory failure. POSTOPERATIVE DIAGNOSES: 1. Status post cerebrovascular accident. 2. Acute respiratory failure. PROCEDURES PERFORMED: 1. Percutaneous tracheostomy tube placement. 2. Percutaneous endoscopic gastrostomy tube placement. SURGEON: Rod Zayas D.O. ANESTHESIA: Deep sedation and local. INDICATIONS FOR PROCEDURE: This is a 67-year-old woman status post cerebrovascular accident. The patient is currently in acute respiratory failure requiring potential prolonged mechan ical ventilator support. I was asked to place a percutaneous tracheostomy tube to facilitate ventila tory wean. PEG tube was also warranted to facilitate prolonged enteral nutritional supplementation. DESCRIPTION OF PROCEDURE: Informed consent obtained from the patient's granddaughter who was the [facility] of employee benefits attorney. The patient was placed in supine position. FIO2 set at 100% with full mechanical ve ntilator support. The patient is on propofol by continuous infusion. She was given aliquots of fent anyl intravenously followed by vecuronium 10 mg intravenously. A fiberoptic bronchoscope was introdu amira through the previous endotracheal tube and advanced to visualize the leanna. The scope was then withdrawn to transilluminate the anterior neck area chosen for placement of the tracheostomy tube. A t this juncture, the neck was widely sterilely prepped and draped in the usual fashion. The skin 2 f ingerbreadths above the suprasternal notch was anesthetized with 1% lidocaine with epinephrine. A 1 cm vertical incision is made here using a 15 scalpel. Introducer needle was inserted through this in cision and advanced through the anterior tracheal wall visualized by bronchoscopy. Guidewire was the n passed through the needle and advanced into distal tracheal lumen without resistance. The needle w as withdrawn over the guidewire. Proper placement of the guidewire is confirmed by bronchoscopy. Th e anterior tracheal wall was then sterilely dilated over the guidewire. Finally, a size 8 tracheosto my tube with a dilator was passed over the guidewire and introduced into the distal tracheal lumen. The dilator, guidewire and introducer stylet were removed as a unit leaving the tracheostomy tube in place. Inner cannula was then inserted. The patient was connected to mechanical ventilator support via the newly placed tracheostomy tube. Once the balloon was inflated, good tidal volume returned. Tracheostomy tube is secured to anterior neck using 0 silk suture at 2 points. Trach dressings and t ie were then applied. Bronchoscope was withdrawn with the previous endotracheal tube as a unit visua lizing the tracheostomy site from above with good hemostasis. Once the endotracheal tube was removed , the bronchoscope was reintroduced through the newly placed tracheostomy tube and advanced to visual ize the leanna. The scope was then withdrawn, visualizing intact tracheobronchial mucosa. There is good hemostasis noted below the tracheostomy insertion site. The patient tolerated this procedure wi thout any apparent complication. We then turned our attention to the abdomen where we will proceed w ith the PEG tube placement. With fresh gown and gloves, the abdomen was widely sterilely prepped and draped in the usual fashion. A fiberoptic endoscope introduced per oral using this to intubate the esophagus. By gentle insufflation, the scope was advanced into the gastric lumen, which was then ins ufflated. Scope was advanced into the proximal duodenum. No peptic ulcerative disease is noted. Th ere is no evidence of gastritis once the scope was withdrawn into the stomach. The anterior abdomina l wall was transilluminated in the area chosen for placement of PEG tube. My community relations assistant then proceede d to anesthetize the skin here using 1% lidocaine. A stab incision was made using 11 scalpel. Intro ducer needle was inserted through this incision, advanced into the gastric wall. The tip of the need le was visualized within the gastric lumen. Guidewire was advanced through this and brought into the gastric lumen. Using an Endo snare, the guidewire was snagged and pulled out with the endoscope per oral. A 20-Irish gastrostomy tube was then connected to the guidewire and the distal end of the gu idewire was pulled out through the stab incision of the abdomen, leaving the mushroom end of the bravo rostomy tube within the gastric lumen abutting the gastric wall. This was secured to the anterior ab dominal wall at 3 cm. Dressings were then put in place. The PEG tube is fashioned to length. Findi ng no other pathology, the stomach was desufflated. The endoscope was withdrawn, visualizing intact esophageal mucosa. The patient tolerated this procedure without any apparent complication and remain s hemodynamically stable following completion of the procedure.
--- NOTE | 2017-11-27 19:59 | PDOC.PN ---
- Subjective Encounter Start Date: 11/27/17 Encounter Start Time: 10:30 -: non-verbal Patient seen and examined for Acute CVA. No overnight events - Objective Resuscitation Status: Resuscitation Status FULL:Full Resuscitation MAR Reviewed: Yes Vital Signs & Weight: Vital Signs (12 hours) Temp Pulse Resp BP Pulse Ox 11/27/17 19:01 87 16 100 11/27/17 18:00 25 H 11/27/17 16:00 98.4 F 18 100 11/27/17 14:02 95 106/72 11/27/17 14:01 96 20 99 11/27/17 14:00 17 11/27/17 12:00 98.2 F 12 11/27/17 10:47 108 H 109/61 11/27/17 10:00 18 11/27/17 08:00 98 F 108 H 18 100 Weight Admit Weight 168 lb 3.392 oz Weight 175 lb 0.752 oz Most Recent Monitor Data Heart Rate from ECG 99 NIBP 149/70 NIBP BP-Mean 90 Respiration from ECG 20 SpO2 100 I&O: 11/26/17 11/27/17 11/28/17 06:59 06:59 06:59 Intake Total 2988.1 2135.9 2270.8 Output Total 2565 1925 1595 Balance 423.1 210.9 675.8 Result Diagrams: 11/27/17 05:06 11/27/17 05:06 EKG Reviewed by me: Yes (Tele SR) Phys Exam - Physical Examination Constitutional: NAD Respiratory: no wheezing Scat rhonchi with bibasilar rales Cardiovascular: RRR, no rub Gastrointestinal: soft, positive bowel sounds Musculoskeletal: no edema Dx/Plan - Plan DVT proph w/SCDs IMPRESSION: 1. Acute CVA s/p TPA - No antiplatelets or anticoag due to intracranial bleed 2. Intracranial bleed s/p Craniotomy 3. Acue hypoxic resp failure - on Vent 4. HTN 5. Cannabis abuse 6. CKD 2 7. Hypokalemia - resolved PLAN: Cont Vent support Trach/PEG today Cont current meds as below Change PPI to PO Cont tube feeds at current rate AM labs Review of Systems - Review of Systems Other: Cannot obtain due to current mentation - Medications/Allergies Allergies/Adverse Reactions: Allergies Allergy/AdvReac Type Severity Reaction Status Date / Time No Known Drug Allergies Allergy Verified 11/16/17 03:04 Medications: Current Medications Acetaminophen (Tylenol) 650 mg RI Q6H PRN PRN Reason: Headache/Fever or Pain Last Admin: 11/21/17 12:00 Dose: 650 mg Albuterol Sulfate (Albuterol Sulfate) 1.25 mg NEB Q4H PRN PRN Reason: Wheezing Albuterol/Ipratropium (Duoneb) 3 ml NEB [id number] [facility] Last Admin: 11/27/17 19:01 Dose: 3 ml Amlodipine Besylate (Norvasc) 5 mg PER TUBE QPM [facility] Last Admin: 11/26/17 21:39 Dose: 5 mg Artificial Tears (Tears Renewed 15ml Bottle) 0 drop EA EYE PRN PRN PRN Reason: Dry Eyes Atorvastatin Calcium (Lipitor) 20 mg PO HS [facility] Last Admin: 11/26/17 21:39 Dose: 20 mg Bisacodyl (Dulcolax) 10 mg RI DAILYPRN PRN PRN Reason: Constipation Last Admin: 11/24/17 17:42 Dose: 10 mg Hydralazine HCl (Apresoline) 10 mg SLOW IVP Q4H PRN PRN Reason: Systolic BP > 180 Last Admin: 11/19/17 23:09 Dose: 10 mg Hydrochlorothiazide (Hydrochlorothiazide) 12.5 mg PER TUBE QAM [facility] Last Admin: 11/27/17 09:09 Dose: 12.5 mg Sodium Chloride (1/2 Normal Saline) 1,000 mls @ 75 mls/hr IV .[id number] [facility] Last Admin: 11/27/17 18:26 Dose: 1,000 mls Dexmedetomidine HCl 200 mcg/ (Sodium Chloride) 50 mls @ 0 mls/hr IVPB INF [facility]; Titrate PRN Reason: Protocol Last Admin: 11/27/17 06:24 Dose: 50 mls Piperacillin Sod/Tazobactam (Sod 3.375 gm/ Sodium Chloride) 100 mls @ 200 mls/ hr IVPB Q6HR [facility] Last Admin: 11/27/17 17:18 Dose: 100 mls Cefepime HCl 1 gm/ Sodium (Chloride) 100 mls @ 200 mls/hr IVPB Q12HR [facility] Last Admin: 11/27/17 09:08 Dose: 100 mls Labetalol HCl (Normodyne) 20 mg SLOW IVP Q4H PRN PRN Reason: Systolic BP > 180 Last Admin: 11/19/17 10:10 Dose: 20 mg Metoclopramide HCl (Reglan) 5 mg IVP Q4H PRN PRN Reason: Nausea Last Admin: 11/24/17 17:41 Dose: 5 mg Mineral Oil/White Petrolatum (Eucerin Cream) 0 gm TOP BIDPRN PRN PRN Reason: Dry Skin Ondansetron HCl (Zofran) 4 mg IVP Q6H PRN PRN Reason: Nausea/Vomiting Pantoprazole Sodium (Protonix) 40 mg PER TUBE DAILY [facility] Propofol (Diprivan) 1,000 mg IV INF PRN; Protocol PRN Reason: TO ACHIEVE GOAL RASS Stop: 12/16/17 03:32 Last Admin: 11/26/17 13:03 Dose: 1,000 mg Propofol (Diprivan Bolus) 20 mg IV Q5MIN PRN PRN Reason: BREAKTHROUGH AGITATION Stop: 12/16/17 03:32
[2017-11-27] MEDS: Amlodipine 5 MG TAB PER TUBE SCH ×2 (20:09→20:22)
[2017-11-27] MEDS: Atorvastatin Calcium 20 MG TAB PO SCH ×2 (20:09→20:23)
[2017-11-27] MEDS: Propofol 1,000 MG/100 ML VIAL IV PRN (20:13)
[2017-11-28] MEDS: Piperacillin/Tazobactam 3.375 GM in Sodium Chloride 0.9% 100 ML IVPB SCH ×3 (00:23→11:19)
[2017-11-28 05:48] LABS: #Eosinphils 0.2 thou/uL (0.0-0.7); #Lymphocytes 1.6 thou/uL (1.20-3.40); #Monocytes 1.4 thou/uL (0.11-0.59); %Basophils 0.2 % (0.0-1.0); %Eosinophils 1.6 % (0.0-10.0); %Lymphocytes 10.2 % (21.0-51.0); %Monocytes 9.3 % (0.0-10.0); %Neutrophils 78.7 % (42.0-75.0); Mean Corpuscular HGB CONC 33.6 g/dL (32.0-36.0); Mean Corpuscular Volume 92.4 fL (78.0-98.0); Mean Platelet Volume 7.6 fL (7.4-10.4); Platelet Count 363 thou/uL (130-400); RBC Distribution Width 12.3 % (11.5-14.5); Red Blood Cell (RBC) Count 3.21 mill/uL (4.20-5.40); White Blood Cell (WBC) Count 15.3 thou/uL (4.8-10.8)
[2017-11-28 05:55] LABS: Anion Gap 17 mmol/L (10-20); BUN (Urea Nitrogen) 19 mg/dL (9.8-20.1); Calc. Creatinine Clearance 63 mL/min (70-130); Calcium 9.2 mg/dL (7.8-10.44); Carbon Dioxide 19 mmol/L (23-31); Chloride 99 mmol/L (98-107); Estimated GFR-MDRD 67; Glucose 96 mg/dL (80-115); Potassium 4.2 mmol/L (3.5-5.1); Sodium 131 mmol/L (136-145)
[2017-11-28] MEDS: Propofol 1,000 MG/100 ML VIAL IV PRN (06:00)
--- NOTE | 2017-11-28 08:51 | PRG ---
DATE OF SERVICE: 11/28/2017 SUBJECTIVE: This morning, the patient is slightly less agitated with trach and PEG. OBJECTIVE: VITAL SIGNS: Blood pressure 147/80, pulse 95, temperature is 98, respiratory rate 18. CHEST: Reveals anterior rhonchi. CARDIAC: Normal S1, S2. No gallops. ABDOMEN: Soft, no masses. LABORATORY DATA: The sputum is growing Proteus. White count 15,000. Electrolytes are normal. Sodi um 131. IMPRESSION: 1. Status post craniotomy. 2. Status post trach and PEG. 3. Status post cerebrovascular accident, intracerebral hemorrhage. PLAN: We will wean off sedation. Trach collar, eventually placement. Antibiotics for Proteus. We will follow. One-half hour critical care time.
--- NOTE | 2017-11-28 08:53 | RAD ---
1 VIEW CHEST: Date: 11/28/17 COMPARISON: 11/23/17. HISTORY: Ventilated patient. Respiratory distress. FINDINGS: Interval removal of endotracheal tube and nasogastric tube. Interval placement of tracheostomy. Bailee l cardiaca silhouette. Pulmonary vessels and hilum are normal. Costophrenic angles are clear. Probabl e calcified granuloma projecting over the right lung base. No consolidation. No pneumothorax or osseo us abnormalities. IMPRESSION: No acute cardiopulmonary process. POS: [facility]
[2017-11-28] MEDS: Hydrochlorothiazide 25 MG TAB PER TUBE SCH (09:15)
[2017-11-28] MEDS: Pantoprazole 40 MG GRANULES PACKET PER TUBE SCH (09:15)
[2017-11-28] MEDS ORDERED: hydrALAZINE 20 MG/ML VIAL SLOW IVP PRN (09:55)
[2017-11-28] MEDS ORDERED: Amlodipine 5 MG TAB PER TUBE SCH (10:00)
[2017-11-28] MEDS ORDERED: Lisinopril 10 MG TAB PER TUBE SCH (10:00)
[2017-11-28] MEDS: Sodium Chloride 0.9% 1,000 ML IV SCH (10:57)
[2017-11-28] MEDS: Sodium Chloride 0.45% 1,000 ML IV SCH (11:14)
--- NOTE | 2017-11-28 11:17 | PRG ---
DATE OF SERVICE: 11/28/2017 HISTORY: Ms. Waddell is a 67-year-old woman with a history of cerebrovascular accident. The patient is postop day #1 today status post percutaneous tracheostomy tube and a percutaneous endoscopic bravo rostomy tube placement. She has remained hemodynamically stable since the above procedures yesterday . PHYSICAL EXAMINATION: VITAL SIGNS: Currently blood pressure is 129/73, pulse 95, respiratory rate 20, maximum temperature in the last 24 hours is 98.6 degrees Fahrenheit, oxygen saturation 100%. HEENT: Percutaneous tracheostomy tube site is clean and dry, no evidence of postoperative hemorrhage . ABDOMEN: Soft, nontender and nondistended. PEG tube site is clean and dry. No induration, no hemat jolly present. IMPRESSION: Postoperative day #1, status post percutaneous tracheostomy and percutaneous endoscopic gastrostomy tube placements. The patient is hemodynamically stable postoperatively. RECOMMENDATIONS: Continue local dressings. The tracheostomy sutures may be removed on 12/02/2017. It is okay to resume enteral nutritional supplementation or oral drug administration through the newl y placed PEG tube. General Surgery with sign off and will be available to reevaluate the patient on demand.
[2017-11-28] MEDS ORDERED: ALPRAZolam 0.5 MG TAB PO PRN (12:08)
[2017-11-28] MEDS ORDERED: DC Sedation Protocol FS ONE (12:08)
[2017-11-28] MEDS: Labetalol HCl 100 MG/20 ML VIAL SLOW IVP PRN (19:33)
[2017-11-28] MEDS: Amlodipine 5 MG TAB PER TUBE SCH (20:43)
[2017-11-28] MEDS: Atorvastatin Calcium 20 MG TAB PO SCH (20:43)
--- NOTE | 2017-11-28 20:44 | PDOC.PN ---
- Subjective Encounter Start Date: 11/28/17 Encounter Start Time: 14:00 -: non-verbal Patient seen and examined for Acute CVA. No overnight events. Started on PEG tube feeding. - Objective Resuscitation Status: Resuscitation Status FULL:Full Resuscitation MAR Reviewed: Yes Vital Signs & Weight: Vital Signs (12 hours) Temp Pulse Resp BP Pulse Ox 11/28/17 20:43 122 H 11/28/17 20:00 98.6 F 122 H 23 H 100 11/28/17 19:33 122 H 169/97 H 11/28/17 18:48 98 23 H 100 11/28/17 16:00 98.3 F 11/28/17 12:49 115 H 20 100 11/28/17 12:00 98.6 F 11/28/17 11:20 158/101 H 11/28/17 10:56 128/71 Weight Admit Weight 168 lb 3.392 oz Weight 157 lb 13.616 oz Most Recent Monitor Data Heart Rate from ECG 95 NIBP 148/91 NIBP BP-Mean 104 Respiration from ECG 29 SpO2 100 I&O: 11/27/17 11/28/17 11/29/17 06:59 06:59 06:59 Intake Total 2135.9 3472.3 1053.9 Output Total 1925 2435 1690 Balance 210.9 1037.3 -636.1 Result Diagrams: 11/29/17 05:10 11/29/17 05:10 EKG Reviewed by me: Yes (Tele SR) Phys Exam - Physical Examination on [facility] Vent, Trach + Respiratory: no wheezing, no rales B/L rhonchi Cardiovascular: RRR, no rub Gastrointestinal: soft, positive bowel sounds PEG + Dx/Plan - Plan DVT proph w/SCDs IMPRESSION: 1. Acute CVA s/p TPA - No antiplatelets or anticoag due to intracranial bleed 2. Intracranial bleed s/p Craniotomy 3. Acue hypoxic resp failure - on Vent 4. HTN - uncontrolled. 5. Hyponatremia 6. Cannabis abuse/CKD 2/Hypokalemia - resolved PLAN: Add Lisinopril Change IVF to NS s/p Trach/PEG today Cont Vent support Cont current meds as below Cont tube feeds AM labs Review of Systems - Review of Systems Other: Cannot obtain due to current mentation. - Medications/Allergies Allergies/Adverse Reactions: Allergies Allergy/AdvReac Type Severity Reaction Status Date / Time No Known Drug Allergies Allergy Verified 11/16/17 03:04 Medications: Current Medications Acetaminophen (Tylenol) 650 mg [place] Q6H PRN PRN Reason: Headache/Fever or Pain Last Admin: 11/21/17 12:00 Dose: 650 mg Albuterol Sulfate (Albuterol Sulfate) 1.25 mg NEB Q4H PRN PRN Reason: Wheezing Albuterol/Ipratropium (Duoneb) 3 ml NEB [id number] [facility] Last Admin: 11/28/17 18:48 Dose: 3 ml Alprazolam (Xanax) 0.5 mg PO TIDPRN PRN PRN Reason: Anxiety/Agitation Amlodipine Besylate (Norvasc) 5 mg PER TUBE BID [facility] Last Admin: 11/28/17 20:43 Dose: 5 mg Artificial Tears (Tears Renewed 15ml Bottle) 0 drop EA EYE PRN PRN PRN Reason: Dry Eyes Atorvastatin Calcium (Lipitor) 20 mg PO HS [facility] Last Admin: 11/28/17 20:43 Dose: 20 mg Bisacodyl (Dulcolax) 10 mg [place] DAILYPRN PRN PRN Reason: Constipation Last Admin: 11/24/17 17:42 Dose: 10 mg Hydralazine HCl (Apresoline) 10 mg SLOW IVP Q4H PRN PRN Reason: Systolic BP > 160 Sodium Chloride (1/2 Normal Saline) 1,000 mls @ 75 mls/hr IV .[id number] [facility] Last Admin: 11/28/17 11:14 Dose: Not Given Dexmedetomidine HCl 200 mcg/ (Sodium Chloride) 50 mls @ 0 mls/hr IVPB INF [facility]; Titrate PRN Reason: Protocol Last Admin: 11/28/17 06:00 Dose: 50 mls Piperacillin Sod/Tazobactam (Sod 3.375 gm/ Sodium Chloride) 100 mls @ 200 mls/ hr IVPB Q6HR [facility] Last Admin: 11/28/17 11:19 Dose: 100 mls Sodium Chloride (Normal Saline 0.9%) 1,000 mls @ 50 mls/hr IV .Q20H [facility] Last Admin: 11/28/17 10:57 Dose: 1,000 mls Labetalol HCl (Normodyne) 10 mg SLOW IVP Q4H PRN PRN Reason: Systolic BP > 160 Last Admin: 11/28/17 19:33 Dose: 10 mg Lisinopril (Zestril) 10 mg PER TUBE DAILY [facility] Metoclopramide HCl (Reglan) 5 mg IVP Q4H PRN PRN Reason: Nausea Last Admin: 11/24/17 17:41 Dose: 5 mg Mineral Oil/White Petrolatum (Eucerin Cream) 0 gm TOP BIDPRN PRN PRN Reason: Dry Skin Ondansetron HCl (Zofran) 4 mg IVP Q6H PRN PRN Reason: Nausea/Vomiting Pantoprazole Sodium (Protonix) 40 mg PER TUBE DAILY [facility] Last Admin: 11/28/17 09:15 Dose: 40 mg Propofol (Diprivan) 1,000 mg IV INF PRN; Protocol PRN Reason: TO ACHIEVE GOAL RASS Stop: 12/16/17 03:32 Last Admin: 11/28/17 06:00 Dose: 1,000 mg
[2017-11-29] MEDS: Piperacillin/Tazobactam 3.375 GM in Sodium Chloride 0.9% 100 ML IVPB SCH ×3 (00:10→06:59)
[2017-11-29] MEDS: Labetalol HCl 100 MG/20 ML VIAL SLOW IVP PRN ×2 (04:09→14:57)
[2017-11-29 05:56] LABS: Anion Gap 18 mmol/L (10-20); BUN (Urea Nitrogen) 21 mg/dL (9.8-20.1); Calc. Creatinine Clearance 67 mL/min (70-130); Calcium 9.1 mg/dL (7.8-10.44); Carbon Dioxide 19 mmol/L (23-31); Chloride 98 mmol/L (98-107); Estimated GFR-MDRD 71; Glucose 137 mg/dL (80-115); Potassium 4.7 mmol/L (3.5-5.1); Sodium 130 mmol/L (136-145)
[2017-11-29 06:02] LABS: Hemoglobin 10.1 g/dL (12.0-16.0); Mean Corpuscular HGB CONC 32.1 g/dL (32.0-36.0); Mean Corpuscular Hemoglobin 29.5 pg (27.0-31.0); Mean Corpuscular Volume 91.9 fL (78.0-98.0); Mean Platelet Volume 8.2 fL (7.4-10.4); Platelet Count 472 thou/uL (130-400); RBC Distribution Width 12.4 % (11.5-14.5); Red Blood Cell (RBC) Count 3.43 mill/uL (4.20-5.40); White Blood Cell (WBC) Count 14.5 thou/uL (4.8-10.8)
[2017-11-29 06:03] LABS: Band 5 % (5-11); Eosinophils 1 % (0-10); Lymphocytes 14 % (21-51); MDiff Complete? YES; Metamyelocyte 1 % (0-0); Monocytes 5 % (0-10); Myelocyte 1 % (0-0); Neutrophil 73 % (42-75); PLT Morphology Comment Appears Adequate
[2017-11-29] MEDS: Sodium Chloride 0.9% 1,000 ML IV SCH (07:53)
--- NOTE | 2017-11-29 08:47 | PRG ---
DATE OF SERVICE: 11/29/2017 This morning she is on ____. PHYSICAL EXAMINATION: VITAL SIGNS: Sats 100% on a T-piece, temperature 97, respiration 20, blood pressure 130/70. CHEST: Chest reveals decreased breath sounds, no wheezing. CARDIAC: Normal S1, S2, no gallops. ABDOMEN: Massive. ASSESSMENT: 1. Status post craniotomy. 2. Hemorrhage. 3. Cerebrovascular accident. The patient's chemistries are normal. Tracheobronchitis is probably colonization Proteus. I will switch her over to oral antibiotics via t he PEG. Eventually placement. Otherwise, lab looks unremarkable. Sodium is 130.
[2017-11-29] MEDS ORDERED: Lisinopril 10 MG TAB PER TUBE SCH (09:00)
[2017-11-29] MEDS: Pantoprazole 40 MG GRANULES PACKET PER TUBE SCH (10:49)
[2017-11-29] MEDS: Amlodipine 5 MG TAB PER TUBE SCH ×2 (10:50→20:37)
[2017-11-29] MEDS: Amoxicillin/Potassium Clav 250 mg/5 ml Oral Suspension PO SCH ×2 (10:53→20:37)
--- NOTE | 2017-11-29 11:39 | CT ---
CT HEAD NONCONTRAST: CLINICAL HISTORY: Recent craniotomy. Intracranial hemorrhage. Followup. FINDINGS: A left side craniotomy is present. There is redemonstration of a large region of posthemorrhagic seq uelae occupying the left cerebral hemisphere, predominantly involving the MCA distribution. There arrington s been expected interval evolution of blood products, with residual foci of hyperdensity, surrounded by low attenuation, indicative of edema and post hemorrhagic encephalomalacia. There is persistent m ass effect with effacement of the left lateral ventricle. Rightward subfalcine herniation is present , measuring approximately 4 to 5 mm, at the level of the posterior septum pallidum. Redemonstration of intraventricular hemorrhage. There is parenchymal atrophy. Sulcal effacement of the left cerebra l hemisphere is present due to mass effect. There is a prominent subgaleal postoperative predominant low density collection overlying the left craniotomy site. Scattered subarachnoid hemorrhage is pre sent bilaterally. IMPRESSION: Sequelae from previously noted large left cerebral hemispheric hemorrhage with expected interval evol ution of blood products. There is residual intracranial hemorrhage bilaterally, including intraventr icular hemorrhage. Mass effect remains upon the left cerebral hemisphere, and ventricular system, an d there remains resultant rightward subfalcine herniation, although the degree of rightward midline s hift has decreased from the 11/17/2017 MRI brain examination. Recommend continued imaging followup. POS: [facility]
--- NOTE | 2017-11-29 14:45 | PDOC.PN ---
- Subjective Encounter Start Date: 11/29/17 Encounter Start Time: 10:00 -: non-verbal Patient seen and examined for Acute CVA. Tolerating tube feeds. - Objective Resuscitation Status: Resuscitation Status FULL:Full Resuscitation MAR Reviewed: Yes Vital Signs & Weight: Vital Signs (12 hours) Temp Pulse Pulse Pulse Resp BP BP 11/29/17 13:49 97 20 11/29/17 10:55 83 98 117/71 11/29/17 10:50 95 121/89 11/29/17 08:00 99.0 F 95 23 H 11/29/17 06:57 11/29/17 06:54 95 20 11/29/17 04:09 95 11/29/17 04:00 98.9 F BP Pulse Ox 11/29/17 13:49 100 11/29/17 10:55 115/92 H 11/29/17 10:50 11/29/17 08:00 100 11/29/17 06:57 100 11/29/17 06:54 100 11/29/17 04:09 11/29/17 04:00 Weight Admit Weight 168 lb 3.392 oz Weight 169 lb 15.622 oz Most Recent Monitor Data Heart Rate from ECG 96 NIBP 135/84 NIBP BP-Mean 107 Respiration from ECG 19 SpO2 100 I&O: 11/28/17 11/29/17 11/30/17 06:59 06:59 06:59 Intake Total 3472.3 1143.9 Output Total 2435 2705 615 Balance 1037.3 -1561.1 -615 Result Diagrams: 11/29/17 05:10 11/29/17 05:10 EKG Reviewed by me: Yes (Tele SR) Phys Exam - Physical Examination Constitutional: NAD on Vent Respiratory: no wheezing Scat rales/rhonchi at bases Cardiovascular: RRR, no rub Gastrointestinal: soft, non-tender, positive bowel sounds Musculoskeletal: no edema Neurological: moves all 4 limbs Dx/Plan - Plan DVT proph w/SCDs IMPRESSION: 1. Acute CVA s/p TPA with intracerebral hemorrhage s/p Craniotomy No antiplatelets or anticoag due to intracranial bleed Cont supportive care Repeat CT brain today per NSG recommendation to decide if SQ Heparin can be started for DVT prophylaxis Cont Statins 2. Acue hypoxic resp failure - on Vent, s/p trach/PEG Cont Vent support Cont Nebs 3. HTN Cont Amlodipine 4. Hyponatremia AM labs, Avoid diuretics 5. Cannabis abuse 6. CKD 2 7. DVT prophylaxis with SCDs/ GI prophylaxis Review of Systems - Review of Systems Other: Cannot be obtained due to current mentation. - Medications/Allergies Allergies/Adverse Reactions: Allergies Allergy/AdvReac Type Severity Reaction Status Date / Time No Known Drug Allergies Allergy Verified 11/16/17 03:04 Medications: Current Medications Acetaminophen (Tylenol) 650 mg VA Q6H PRN PRN Reason: Headache/Fever or Pain Last Admin: 11/21/17 12:00 Dose: 650 mg Albuterol Sulfate (Albuterol Sulfate) 1.25 mg NEB Q4H PRN PRN Reason: Wheezing Albuterol/Ipratropium (Duoneb) 3 ml NEB [id number] [facility] Last Admin: 11/29/17 13:49 Dose: 3 ml Alprazolam (Xanax) 0.5 mg PO TIDPRN PRN PRN Reason: Anxiety/Agitation Amlodipine Besylate (Norvasc) 5 mg PER TUBE BID [facility] Last Admin: 11/29/17 10:50 Dose: 5 mg Amoxicillin/Clavulanate Potassium (Augmentin 250mg/5ml Oral Susp) 500 mg PO BID [facility] Stop: 12/04/17 09:01 Last Admin: 11/29/17 10:53 Dose: 500 mg Artificial Tears (Tears Renewed 15ml Bottle) 0 drop EA EYE PRN PRN PRN Reason: Dry Eyes Atorvastatin Calcium (Lipitor) 20 mg PO HS [facility] Last Admin: 11/28/17 20:43 Dose: 20 mg Bisacodyl (Dulcolax) 10 mg [place] DAILYPRN PRN PRN Reason: Constipation Last Admin: 11/24/17 17:42 Dose: 10 mg Hydralazine HCl (Apresoline) 10 mg SLOW IVP Q4H PRN PRN Reason: Systolic BP > 160 Sodium Chloride (Normal Saline 0.9%) 1,000 mls @ 50 mls/hr IV .Q20H [facility] Last Admin: 11/29/17 07:53 Dose: 1,000 mls Labetalol HCl (Normodyne) 10 mg SLOW IVP Q4H PRN PRN Reason: Systolic BP > 160 Last Admin: 11/29/17 04:09 Dose: 10 mg Metoclopramide HCl (Reglan) 5 mg IVP Q4H PRN PRN Reason: Nausea Last Admin: 11/24/17 17:41 Dose: 5 mg Mineral Oil/White Petrolatum (Eucerin Cream) 0 gm TOP BIDPRN PRN PRN Reason: Dry Skin Ondansetron HCl (Zofran) 4 mg IVP Q6H PRN PRN Reason: Nausea/Vomiting Pantoprazole Sodium (Protonix) 40 mg PER TUBE DAILY [facility] Last Admin: 11/29/17 10:49 Dose: 40 mg Propofol (Diprivan) 1,000 mg IV INF PRN; Protocol PRN Reason: TO ACHIEVE GOAL [facility]ASS Stop: 12/16/17 03:32 Last Admin: 11/28/17 06:00 Dose: 1,000 mg
[2017-11-29] MEDS: Atorvastatin Calcium 20 MG TAB PO SCH (20:37)
[2017-11-30 05:41] LABS: #Eosinphils 0.2 thou/uL (0.0-0.7); #Lymphocytes 1.9 thou/uL (1.20-3.40); #Monocytes 0.8 thou/uL (0.11-0.59); %Basophils 0.1 % (0.0-1.0); %Eosinophils 1.5 % (0.0-10.0); %Lymphocytes 13.6 % (21.0-51.0); %Neutrophils 78.9 % (42.0-75.0); Hemoglobin 9.7 g/dL (12.0-16.0); Mean Corpuscular Hemoglobin 30.5 pg (27.0-31.0); Mean Corpuscular Volume 92.4 fL (78.0-98.0); Mean Platelet Volume 7.3 fL (7.4-10.4); Platelet Count 456 thou/uL (130-400); RBC Distribution Width 12.5 % (11.5-14.5); Red Blood Cell (RBC) Count 3.19 mill/uL (4.20-5.40)
[2017-11-30 06:08] LABS: Anion Gap 14 mmol/L (10-20); BUN (Urea Nitrogen) 22 mg/dL (9.8-20.1); Calc. Creatinine Clearance 76 mL/min (70-130); Calcium 8.8 mg/dL (7.8-10.44); Carbon Dioxide 21 mmol/L (23-31); Chloride 100 mmol/L (98-107); Estimated GFR-MDRD 76; Glucose 142 mg/dL (80-115); Sodium 131 mmol/L (136-145)
[2017-11-30] MEDS: Amlodipine 5 MG TAB PER TUBE SCH ×2 (08:19→21:22)
[2017-11-30] MEDS: Pantoprazole 40 MG GRANULES PACKET PER TUBE SCH (08:19)
[2017-11-30] MEDS: Amoxicillin/Potassium Clav 250 mg/5 ml Oral Suspension PO SCH (08:19)
--- NOTE | 2017-11-30 08:35 | PRG ---
DATE OF SERVICE: 11/30/2017 SUBJECTIVE: This morning, Trach and PEG in place, no distress. She has got MRSA and Proteus in the bronch washings, more than likely this is just colonization; however, we will treat it. A CT yesterd ay shows a persistent left-sided hemorrhage status post craniotomy. OBJECTIVE: CHEST: Revealed decreased breath sounds, no wheezing. CARDIAC: Normal S1, S2, no gallops. ABDOMEN: Soft, no masses. LABORATORY DATA: White count 14,000, H&H is stable. IMPRESSION: Tracheobronchitis, respiratory failure, intracerebral hemorrhage status post craniotomy. PLAN: I switched her to Bactrim-DS, which should cover both Proteus and MRSA. Eventually placement.
[2017-11-30] MEDS: Sulfameth/Trimethoprim DS 800-160mg TAB PO SCH ×2 (09:15→21:22)
--- NOTE | 2017-11-30 21:06 | PDOC.PN ---
- Subjective Encounter Start Date: 11/30/17 Encounter Start Time: 13:00 -: non-verbal Patient seen and examined for Acute CVA s/p TPA and craniotomy. No overnight events - Objective Resuscitation Status: Resuscitation Status FULL:Full Resuscitation MAR Reviewed: Yes Vital Signs & Weight: Vital Signs (12 hours) Temp Pulse Pulse Pulse Resp BP BP 11/30/17 18:44 108 H 28 H 11/30/17 16:00 98.7 F 11/30/17 14:11 92 84 130/89 131/82 11/30/17 13:05 93 25 H 11/30/17 11:44 98.8 F Pulse Ox Pulse Ox Pulse Ox 11/30/17 18:44 99 11/30/17 16:00 11/30/17 14:11 94 L 95 11/30/17 13:05 99 11/30/17 11:44 Weight Admit Weight 168 lb 3.392 oz Weight 171 lb 8.314 oz Most Recent Monitor Data Heart Rate from ECG 95 NIBP 125/74 NIBP BP-Mean 98 Respiration from ECG 23 SpO2 97 I&O: 11/29/17 11/30/17 12/01/17 06:59 06:59 06:59 Intake Total 1143.9 900 878 Output Total 2705 1256 590 Balance -1561.1 -356 288 Result Diagrams: 12/01/17 05:13 12/01/17 05:13 Phys Exam - Physical Examination Constitutional: NAD on Mech Vent. Respiratory: no wheezing, no rhonchi Cardiovascular: RRR, no rub Gastrointestinal: soft, non-tender, positive bowel sounds Musculoskeletal: no edema Neurological: moves all 4 limbs Dx/Plan - Plan DVT proph w/SCDs IMPRESSION/PLAN: 1. 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 Acue hypoxic resp failure - on Vent, s/p trach/PEG Cont Vent support Cont Nebs as needed 3. HTN Cont Amlodipine at current dose 4. Hyponatremia AM labs, Avoid diuretics 5. Cannabis abuse 6. CKD 2 7. DVT prophylaxis with SCDs - Not cleared for SQ Heparin per NSG/ GI prophylaxis Review of Systems - Review of Systems Other: Cannot obtain due to current cognitive status. - Medications/Allergies Allergies/Adverse Reactions: Allergies Allergy/AdvReac Type Severity Reaction Status Date / Time No Known Drug Allergies Allergy Verified 11/16/17 03:04 Medications: Current Medications Acetaminophen (Tylenol) 650 mg [place] Q6H PRN PRN Reason: Headache/Fever or Pain Last Admin: 11/21/17 12:00 Dose: 650 mg Albuterol Sulfate (Albuterol Sulfate) 1.25 mg NEB Q4H PRN PRN Reason: Wheezing Albuterol/Ipratropium (Duoneb) 3 ml NEB [id number] [facility] Last Admin: 11/30/17 18:44 Dose: 3 ml Alprazolam (Xanax) 0.5 mg PO TIDPRN PRN PRN Reason: Anxiety/Agitation Amlodipine Besylate (Norvasc) 5 mg PER TUBE BID [facility] Last Admin: 11/30/17 08:19 Dose: 5 mg Artificial Tears (Tears Renewed 15ml Bottle) 0 drop EA EYE PRN PRN PRN Reason: Dry Eyes Atorvastatin Calcium (Lipitor) 20 mg PO HS [facility] Last Admin: 11/29/17 20:37 Dose: 20 mg Bisacodyl (Dulcolax) 10 mg [place] DAILYPRN PRN PRN Reason: Constipation Last Admin: 11/24/17 17:42 Dose: 10 mg Hydralazine HCl (Apresoline) 10 mg SLOW IVP Q4H PRN PRN Reason: Systolic BP > 160 Sodium Chloride (Normal Saline 0.9%) 1,000 mls @ 0 mls/hr IV .Q0M [facility] PRN Reason: KVO Last Admin: 11/29/17 07:53 Dose: 1,000 mls Labetalol HCl (Normodyne) 10 mg SLOW IVP Q4H PRN PRN Reason: Systolic BP > 160 Last Admin: 11/29/17 14:57 Dose: 10 mg Metoclopramide HCl (Reglan) 5 mg IVP Q4H PRN PRN Reason: Nausea Last Admin: 11/24/17 17:41 Dose: 5 mg Mineral Oil/White Petrolatum (Eucerin Cream) 0 gm TOP BIDPRN PRN PRN Reason: Dry Skin Ondansetron HCl (Zofran) 4 mg IVP Q6H PRN PRN Reason: Nausea/Vomiting Pantoprazole Sodium (Protonix) 40 mg PER TUBE DAILY [facility] Last Admin: 11/30/17 08:19 Dose: 40 mg Propofol (Diprivan) 1,000 mg IV INF PRN; Protocol PRN Reason: TO ACHIEVE GOAL RASS Stop: 12/16/17 03:32 Last Admin: 11/28/17 06:00 Dose: 1,000 mg Trimethoprim/Sulfamethoxazole (Bactrim Ds) 1 tab PO BID [facility] Stop: 12/10/17 09:01 Last Admin: 11/30/17 09:15 Dose: 1 tab
[2017-11-30] MEDS: Atorvastatin Calcium 20 MG TAB PO SCH (21:22)
[2017-12-01 05:19] LABS: #Eosinphils 0.2 thou/uL (0.0-0.7); #Lymphocytes 1.9 thou/uL (1.20-3.40); #Monocytes 0.6 thou/uL (0.11-0.59); #Neutrophils 12.6 thou/uL (1.40-6.50); %Basophils 0.2 % (0.0-1.0); %Eosinophils 1.3 % (0.0-10.0); %Lymphocytes 12.2 % (21.0-51.0); %Monocytes 4.2 % (0.0-10.0); %Neutrophils 82.1 % (42.0-75.0); Hemoglobin 9.7 g/dL (12.0-16.0); Mean Corpuscular HGB CONC 33.6 g/dL (32.0-36.0); Mean Corpuscular Hemoglobin 31.1 pg (27.0-31.0); Mean Corpuscular Volume 92.7 fL (78.0-98.0); Mean Platelet Volume 7.2 fL (7.4-10.4); Platelet Count 509 thou/uL (130-400); RBC Distribution Width 12.9 % (11.5-14.5); Red Blood Cell (RBC) Count 3.12 mill/uL (4.20-5.40); White Blood Cell (WBC) Count 15.3 thou/uL (4.8-10.8)
[2017-12-01 05:46] LABS: Anion Gap 15 mmol/L (10-20); BUN (Urea Nitrogen) 20 mg/dL (9.8-20.1); Calc. Creatinine Clearance 79 mL/min (70-130); Calcium 9.2 mg/dL (7.8-10.44); Carbon Dioxide 21 mmol/L (23-31); Chloride 101 mmol/L (98-107); Estimated GFR-MDRD 79; Glucose 128 mg/dL (80-115); Potassium 4.2 mmol/L (3.5-5.1); Sodium 133 mmol/L (136-145)
[2017-12-01] MEDS: Pantoprazole 40 MG GRANULES PACKET PER TUBE SCH (10:35)
[2017-12-01] MEDS: Bisacodyl 10 MG SUPP PR PRN (10:35)
[2017-12-01] MEDS: Amlodipine 5 MG TAB PER TUBE SCH ×2 (10:35→20:13)
[2017-12-01] MEDS: Sulfameth/Trimethoprim DS 800-160mg TAB PO SCH ×2 (10:35→20:12)
[2017-12-01] MEDS ORDERED: Amlodipine 5 MG TAB PER TUBE SCH ×2 (12:47→13:00)
--- NOTE | 2017-12-01 12:50 | PDOC.PN ---
- Subjective Encounter Start Date: 12/01/17 Encounter Start Time: 09:30 -: non-verbal Patient seen and examined for Encephlalopathy. No overnight events - Objective Resuscitation Status: Resuscitation Status FULL:Full Resuscitation MAR Reviewed: Yes Vital Signs & Weight: Vital Signs (12 hours) Temp Pulse Resp BP Pulse Ox 12/01/17 10:35 108 H 109/60 12/01/17 06:46 100 12/01/17 06:43 108 H 19 100 12/01/17 04:00 97.4 F L Weight Admit Weight 168 lb 3.392 oz Weight 168 lb 1 oz Most Recent Monitor Data Heart Rate from ECG 105 NIBP 105/67 NIBP BP-Mean 80 Respiration from ECG 22 SpO2 100 I&O: 11/30/17 12/01/17 12/02/17 06:59 06:59 06:59 Intake Total 900 1658 Output Total 1256 1115 245 Balance -356 543 -245 Result Diagrams: 12/01/17 05:13 12/01/17 05:13 EKG Reviewed by me: Yes (Tele SR) Phys Exam - Physical Examination Constitutional: NAD Respiratory: no wheezing, no rhonchi Cardiovascular: RRR, no rub Gastrointestinal: soft, positive bowel sounds Musculoskeletal: no edema Dx/Plan - Plan DVT proph w/lovenox, DVT proph w/SCDs IMPRESSION/PLAN: 1. Acute CVA s/p TPA with intracerebral hemorrhage s/p Craniotomy No antiplatelets or anticoag due to intracranial bleed Cont Statins Cont supportive care 2. Acue hypoxic resp failure - on Vent, s/p trach/PEG Cont Vent support Cont Nebs as needed 3. HTN Cont Amlodipine at current dose - add holding parameters. 4. Hyponatremia - improving AM labs, Avoid diuretics 5. Cannabis abuse 6. CKD 2 7. DVT prophylaxis with SCDs - Not cleared for SQ Heparin per NSG 8. GI prophylaxis Review of Systems - Review of Systems Other: Cannot obtain due to current mentation. - Medications/Allergies Allergies/Adverse Reactions: Allergies Allergy/AdvReac Type Severity Reaction Status Date / Time No Known Drug Allergies Allergy Verified 11/16/17 03:04 Medications: Current Medications Acetaminophen (Tylenol) 650 mg [place] Q6H PRN PRN Reason: Headache/Fever or Pain Last Admin: 11/21/17 12:00 Dose: 650 mg Albuterol Sulfate (Albuterol Sulfate) 1.25 mg NEB Q4H PRN PRN Reason: Wheezing Albuterol/Ipratropium (Duoneb) 3 ml NEB [id number] [facility] Last Admin: 12/01/17 06:43 Dose: 3 ml Alprazolam (Xanax) 0.5 mg PO TIDPRN PRN PRN Reason: Anxiety/Agitation Amlodipine Besylate (Norvasc) 5 mg PER TUBE BID [facility] Artificial Tears (Tears Renewed 15ml Bottle) 0 drop EA EYE PRN PRN PRN Reason: Dry Eyes Atorvastatin Calcium (Lipitor) 20 mg PO HS [facility] Last Admin: 11/30/17 21:22 Dose: 20 mg Bisacodyl (Dulcolax) 10 mg [place] DAILYPRN PRN PRN Reason: Constipation Last Admin: 12/01/17 10:35 Dose: 10 mg Hydralazine HCl (Apresoline) 10 mg SLOW IVP Q4H PRN PRN Reason: Systolic BP > 160 Sodium Chloride (Normal Saline 0.9%) 1,000 mls @ 0 mls/hr IV .Q0M [facility] PRN Reason: KVO Last Admin: 11/29/17 07:53 Dose: 1,000 mls Labetalol HCl (Normodyne) 10 mg SLOW IVP Q4H PRN PRN Reason: Systolic BP > 160 Last Admin: 11/29/17 14:57 Dose: 10 mg Metoclopramide HCl (Reglan) 5 mg IVP Q4H PRN PRN Reason: Nausea Last Admin: 11/24/17 17:41 Dose: 5 mg Mineral Oil/White Petrolatum (Eucerin Cream) 0 gm TOP BIDPRN PRN PRN Reason: Dry Skin Ondansetron HCl (Zofran) 4 mg IVP Q6H PRN PRN Reason: Nausea/Vomiting Pantoprazole Sodium (Protonix) 40 mg PER TUBE DAILY [facility] Last Admin: 12/01/17 10:35 Dose: 40 mg Propofol (Diprivan) 1,000 mg IV INF PRN; Protocol PRN Reason: TO ACHIEVE GOAL RASS Stop: 12/16/17 03:32 Last Admin: 11/28/17 06:00 Dose: 1,000 mg Trimethoprim/Sulfamethoxazole (Bactrim Ds) 1 tab PO BID [facility] Stop: 12/10/17 09:01 Last Admin: 12/01/17 10:35 Dose: 1 tab
[2017-12-01] MEDS: Atorvastatin Calcium 20 MG TAB PO SCH (20:12)
--- NOTE | 2017-12-01 22:44 | PRG ---
DATE OF SERVICE: 12/01/2017 SUBJECTIVE: Mary Waddell is stable. OBJECTIVE: VITAL SIGNS: Heart rate is 105, respiratory rate is 18, oximetry is 98% on trach collar, blood press ure 110/72. Intake and output is positive 543. LUNGS: Clear. HEART: Regular rhythm. ABDOMEN: Soft. LABORATORY DATA: White count 15.3, hemoglobin 9.7, platelets 509,000. Sodium 133, potassium 4.2, ch loride 101, bicarb 29, BUN 20, creatinine 0.87. IMPRESSION: 1. Status post tracheostomy and percutaneous endoscopic gastrostomy. 2. Bronchitis. 3. Status post craniotomy for brain hemorrhage. PLAN: LTAC placement.
[2017-12-02 04:28] LABS: #Eosinphils 0.2 thou/uL (0.0-0.7); #Lymphocytes 1.8 thou/uL (1.20-3.40); #Monocytes 0.7 thou/uL (0.11-0.59); #Neutrophils 12.4 thou/uL (1.40-6.50); %Basophils 0.1 % (0.0-1.0); %Eosinophils 1.4 % (0.0-10.0); %Lymphocytes 11.6 % (21.0-51.0); %Monocytes 4.7 % (0.0-10.0); %Neutrophils 82.2 % (42.0-75.0); Hemoglobin 9.4 g/dL (12.0-16.0); Mean Corpuscular HGB CONC 32.3 g/dL (32.0-36.0); Mean Corpuscular Hemoglobin 30.4 pg (27.0-31.0); Mean Corpuscular Volume 94.4 fL (78.0-98.0); Mean Platelet Volume 7.9 fL (7.4-10.4); Platelet Count 475 thou/uL (130-400); RBC Distribution Width 13.3 % (11.5-14.5); Red Blood Cell (RBC) Count 3.09 mill/uL (4.20-5.40); White Blood Cell (WBC) Count 15.1 thou/uL (4.8-10.8)
[2017-12-02 04:37] LABS: Anion Gap 15 mmol/L (10-20); BUN (Urea Nitrogen) 26 mg/dL (9.8-20.1); Calc. Creatinine Clearance 62 mL/min (70-130); Calcium 9.5 mg/dL (7.8-10.44); Carbon Dioxide 22 mmol/L (23-31); Chloride 101 mmol/L (98-107); Estimated GFR-MDRD 61; Glucose 107 mg/dL (80-115); Potassium 5.1 mmol/L (3.5-5.1); Sodium 133 mmol/L (136-145)
[2017-12-02] MEDS: Pantoprazole 40 MG GRANULES PACKET PER TUBE SCH (09:15)
[2017-12-02] MEDS: Amlodipine 5 MG TAB PER TUBE SCH ×2 (09:15→20:59)
[2017-12-02] MEDS: Sulfameth/Trimethoprim DS 800-160mg TAB PO SCH ×2 (09:15→20:59)
--- NOTE | 2017-12-02 15:20 | PDOC.PN ---
- Subjective Encounter Start Date: 12/02/17 Encounter Start Time: 10:30 -: non-verbal Patient seen and examined for Acute CVA. No new complaints. No overnight events - Objective Resuscitation Status: Resuscitation Status FULL:Full Resuscitation MAR Reviewed: Yes Vital Signs & Weight: Vital Signs (12 hours) Temp Pulse Pulse Pulse Resp BP BP 12/02/17 12:00 97.7 F 12/02/17 11:54 110 H 33 H 12/02/17 10:54 93 98 133/83 123/81 12/02/17 09:15 93 12/02/17 08:00 97.9 F 93 24 H 12/02/17 07:19 12/02/17 07:18 93 22 H 12/02/17 07:00 97.8 F 12/02/17 04:00 97.7 F Pulse Ox Pulse Ox Pulse Ox 12/02/17 12:00 12/02/17 11:54 100 12/02/17 10:54 100 100 12/02/17 09:15 12/02/17 08:00 100 12/02/17 07:19 100 12/02/17 07:18 100 12/02/17 07:00 12/02/17 04:00 Weight Admit Weight 168 lb 3.392 oz Weight 169 lb 9 oz Most Recent Monitor Data Heart Rate from ECG 97 NIBP 91/58 NIBP BP-Mean 76 Respiration from ECG 20 SpO2 100 I&O: 12/01/17 12/02/17 12/03/17 06:59 06:59 06:59 Intake Total 1658 703.4 Output Total 1115 906 505 Balance 543 -202.6 -505 Result Diagrams: 12/02/17 03:14 12/02/17 03:14 EKG Reviewed by me: Yes (Tele SR) Phys Exam - Physical Examination Constitutional: NAD Respiratory: no wheezing, no rhonchi Cardiovascular: RRR, no rub Gastrointestinal: soft, positive bowel sounds Musculoskeletal: no edema Neuro - no new focal findings Dx/Plan - Plan DVT proph w/SCDs IMPRESSION/PLAN: 1. Acute CVA s/p TPA with intracerebral hemorrhage s/p Craniotomy Cont Statins No antiplatelets or anticoag due to intracranial bleed Cont supportive care 2. Acue hypoxic resp failure - on Vent, s/p trach/PEG Cont Vent support Cont Nebs as needed 3. HTN Cont Amlodipine at current dose - add holding parameters. 4. Hyponatremia - improving AM labs, Avoid diuretics 5. Acute Bronchitis - MRSA Cont Bactrim 6. CKD 2/Cannabis abuse 7. DVT prophylaxis with SCDs - Not cleared for SQ Heparin per NSG 8. GI prophylaxis Review of Systems - Review of Systems Other: Cannot obtain due to current mentation. - Medications/Allergies Allergies/Adverse Reactions: Allergies Allergy/AdvReac Type Severity Reaction Status Date / Time No Known Drug Allergies Allergy Verified 11/16/17 03:04 Medications: Current Medications Acetaminophen (Tylenol) 650 mg [place] Q6H PRN PRN Reason: Headache/Fever or Pain Last Admin: 11/21/17 12:00 Dose: 650 mg Albuterol Sulfate (Albuterol Sulfate) 1.25 mg NEB Q4H PRN PRN Reason: Wheezing Albuterol/Ipratropium (Duoneb) 3 ml NEB [id number] [facility] Last Admin: 12/02/17 11:54 Dose: 3 ml Alprazolam (Xanax) 0.5 mg PO TIDPRN PRN PRN Reason: Anxiety/Agitation Amlodipine Besylate (Norvasc) 5 mg PER TUBE BID [facility] Last Admin: 12/02/17 09:15 Dose: 5 mg Artificial Tears (Tears Renewed 15ml Bottle) 0 drop EA EYE PRN PRN PRN Reason: Dry Eyes Atorvastatin Calcium (Lipitor) 20 mg PO HS [facility] Last Admin: 12/01/17 20:12 Dose: 20 mg Bisacodyl (Dulcolax) 10 mg [place] DAILYPRN PRN PRN Reason: Constipation Last Admin: 12/01/17 10:35 Dose: 10 mg Hydralazine HCl (Apresoline) 10 mg SLOW IVP Q4H PRN PRN Reason: Systolic BP > 160 Sodium Chloride (Normal Saline 0.9%) 1,000 mls @ 0 mls/hr IV .Q0M [facility] PRN Reason: KVO Last Admin: 11/29/17 07:53 Dose: 1,000 mls Labetalol HCl (Normodyne) 10 mg SLOW IVP Q4H PRN PRN Reason: Systolic BP > 160 Last Admin: 11/29/17 14:57 Dose: 10 mg Metoclopramide HCl (Reglan) 5 mg IVP Q4H PRN PRN Reason: Nausea Last Admin: 11/24/17 17:41 Dose: 5 mg Mineral Oil/White Petrolatum (Eucerin Cream) 0 gm TOP BIDPRN PRN PRN Reason: Dry Skin Ondansetron HCl (Zofran) 4 mg IVP Q6H PRN PRN Reason: Nausea/Vomiting Pantoprazole Sodium (Protonix) 40 mg PER TUBE DAILY [facility] Last Admin: 12/02/17 09:15 Dose: 40 mg Propofol (Diprivan) 1,000 mg IV INF PRN; Protocol PRN Reason: TO ACHIEVE GOAL RASS Stop: 12/16/17 03:32 Last Admin: 11/28/17 06:00 Dose: 1,000 mg Sodium Chloride (Flush - Normal Saline) 10 ml IVF Q12HR [facility] Last Admin: 12/02/17 09:15 Dose: 10 ml Sodium Chloride (Flush - Normal Saline) 10 ml IVF PRN PRN PRN Reason: Saline Flush Trimethoprim/Sulfamethoxazole (Bactrim Ds) 1 tab PO BID [facility] Stop: 12/10/17 09:01 Last Admin: 12/02/17 09:15 Dose: 1 tab
--- NOTE | 2017-12-02 20:50 | PRG ---
DATE OF SERVICE: 12/02/2017 SUBJECTIVE: Ms. Mary Waddell is unchanged. She is ____ evaluated for the LTAC. Her trach and a PEG are in place. She is in no distress. OBJECTIVE: VITAL SIGNS: Vital signs are stable. Her blood pressure this afternoon is 117/82, heart rates fluct uating between 91-113 this afternoon. Intake and output is negative 202. Overall, clinically she is unchanged. LABORATORY DATA: White count is 15.1, hemoglobin 9.4, platelets 475. Sodium 133, potassium 5.1, chl oride 101, bicarbonate 22, BUN 26, creatinine ____. IMPRESSION: Cerebrovascular accident, status post trach and PEG. PLAN: Continue supportive care with transferred to LTAC when bed becomes available.
[2017-12-02] MEDS: Atorvastatin Calcium 20 MG TAB PO SCH (20:59)
--- NOTE | 2017-12-02 23:13 | EKG ---
Test Reason : STAT Blood Pressure : / mmHG Vent. Rate : 098 BPM Atrial Rate : 098 BPM P-R Int : 124 ms QRS Dur : 078 ms QT Int : 378 ms P-R-T Axes : 084 012 058 degrees QTc Int : 482 ms Sinus rhythm with Premature atrial complexes Low voltage QRS Borderline ECG When compared with ECG of 17-NOV-2017 12:12, Premature atrial complexes are now Present Confirmed by Jadon JUAN ([id number]) on 12/02/2017 11:13:39 PM Referred By: Confirmed By:Jadon JUAN
[2017-12-03] MEDS: Labetalol HCl 100 MG/20 ML VIAL SLOW IVP PRN (02:11)
[2017-12-03 04:25] LABS: #Eosinphils 0.1 thou/uL (0.0-0.7); #Lymphocytes 0.8 thou/uL (1.20-3.40); #Monocytes 0.4 thou/uL (0.11-0.59); #Neutrophils 12.7 thou/uL (1.40-6.50); %Basophils 0.3 % (0.0-1.0); %Eosinophils 0.7 % (0.0-10.0); %Lymphocytes 5.7 % (21.0-51.0); %Neutrophils 90.3 % (42.0-75.0); Hemoglobin 9.2 g/dL (12.0-16.0); Mean Corpuscular HGB CONC 32.6 g/dL (32.0-36.0); Mean Corpuscular Volume 95.3 fL (78.0-98.0); Mean Platelet Volume 7.4 fL (7.4-10.4); Platelet Count 427 thou/uL (130-400); RBC Distribution Width 13.5 % (11.5-14.5); Red Blood Cell (RBC) Count 2.98 mill/uL (4.20-5.40)
[2017-12-03 04:43] LABS: Anion Gap 16 mmol/L (10-20); BUN (Urea Nitrogen) 29 mg/dL (9.8-20.1); Calc. Creatinine Clearance 58 mL/min (70-130); Calcium 9.1 mg/dL (7.8-10.44); Carbon Dioxide 20 mmol/L (23-31); Chloride 103 mmol/L (98-107); Estimated GFR-MDRD 56; Glucose 135 mg/dL (80-115); Potassium 4.9 mmol/L (3.5-5.1); Sodium 134 mmol/L (136-145)
--- NOTE | 2017-12-03 08:34 | PRG ---
DATE OF SERVICE: 12/03/2017 She has a trach collar in place. She appears to be in no distress. PHYSICAL EXAMINATION: VITAL SIGNS: Blood pressure is 105/66, sats 100%, 24% trach collar, temperature 98. NEURO: Neurologically, she opens her eyes. Otherwise, pretty much unresponsive. CHEST: Chest reveals decreased breath sounds, anterior rhonchi. CARDIAC: Normal S1, S2, no gallops. ABDOMEN: Soft. LABORATORY: White count 14,000, H&H 8 and 28, platelet count normal. Electrolytes are normal. IMPRESSION: 1. Status post intracerebral hemorrhage. 2. Status post trach and PEG. PLAN: jig worker is trying to get a placement for her, as per the family's wishes, she is going t o LTAC. Long-term prognosis is guarded. She is on empiric antibiotics for her Proteus and methicill in-resistant Staph aureus to which she is tolerating well. Long-term prognosis is guarded.
[2017-12-03] MEDS: Amlodipine 5 MG TAB PER TUBE SCH ×2 (09:03→21:22)
[2017-12-03] MEDS: Pantoprazole 40 MG GRANULES PACKET PER TUBE SCH (09:03)
[2017-12-03] MEDS: Sulfameth/Trimethoprim DS 800-160mg TAB PO SCH ×2 (09:03→21:22)
--- NOTE | 2017-12-03 16:21 | PDOC.EVN ---
Event Note - Event Note Event Note: Attempted to call [facility] at [phone] - went to voice mail. Will try calling again.
[2017-12-03] MEDS: Atorvastatin Calcium 20 MG TAB PO SCH (21:22)
--- NOTE | 2017-12-03 21:30 | PDOC.PN ---
- Subjective Encounter Start Date: 12/03/17 Encounter Start Time: 11:30 Patient seen and examined for Acute CVA. No new focal deficits. - Objective Resuscitation Status: Resuscitation Status FULL:Full Resuscitation MAR Reviewed: Yes Vital Signs & Weight: Vital Signs (12 hours) Temp Pulse Resp BP BP BP Pulse Ox 12/03/17 21:22 115 H 135/78 12/03/17 19:35 98.1 F 115 H 19 92/64 100 12/03/17 18:56 104 H 16 100 12/03/17 15:44 98.0 F 96 22 H 134/81 12/03/17 12:24 118 H 16 100 12/03/17 12:00 98.2 F 118 H 16 100 Weight Admit Weight 168 lb 3.392 oz Weight 159 lb 6.307 oz Most Recent Monitor Data Heart Rate from ECG 102 NIBP 124/85 NIBP BP-Mean 96 Respiration from ECG 18 SpO2 100 I&O: 12/02/17 12/03/17 12/04/17 06:59 06:59 06:59 Intake Total 703.4 1596 72 Output Total 906 1566 240 Balance -202.6 30 -168 Result Diagrams: 12/03/17 03:58 12/03/17 03:58 EKG Reviewed by me: Yes (Tele SR) Phys Exam - Physical Examination Constitutional: NAD Respiratory: no wheezing, no rhonchi Cardiovascular: RRR, no rub Gastrointestinal: soft, non-tender, positive bowel sounds Musculoskeletal: no edema Neuro - No new focal deficits. Dx/Plan - Plan DVT proph w/SCDs IMPRESSION/PLAN: 1. 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 Acue hypoxic resp failure s/p trach/PEG Cont Nebs as needed 3. HTN Cont Amlodipine at current dose - add holding parameters. 4. Hyponatremia - improving AM labs, Avoid diuretics 5. Acute Bronchitis - MRSA Cont Bactrim 6. CKD 2/Cannabis abuse 7. DVT prophylaxis with SCDs - Not cleared for SQ Heparin per NSG 8. GI prophylaxis Review of Systems - Review of Systems Other: Cannot obtain due to current mentation. - Medications/Allergies Allergies/Adverse Reactions: Allergies Allergy/AdvReac Type Severity Reaction Status Date / Time No Known Drug Allergies Allergy Verified 11/16/17 03:04 Medications: Current Medications Acetaminophen (Tylenol) 650 mg [place] Q6H PRN PRN Reason: Headache/Fever or Pain Last Admin: 11/21/17 12:00 Dose: 650 mg Albuterol Sulfate (Albuterol Sulfate) 1.25 mg NEB Q4H PRN PRN Reason: Wheezing Albuterol/Ipratropium (Duoneb) 3 ml NEB [id number] [facility] Last Admin: 12/03/17 18:56 Dose: 3 ml Alprazolam (Xanax) 0.5 mg PO TIDPRN PRN PRN Reason: Anxiety/Agitation Amlodipine Besylate (Norvasc) 5 mg PER TUBE BID [facility] Last Admin: 12/03/17 21:22 Dose: 5 mg Artificial Tears (Tears Renewed 15ml Bottle) 0 drop EA EYE PRN PRN PRN Reason: Dry Eyes Atorvastatin Calcium (Lipitor) 20 mg PO HS [facility] Last Admin: 12/03/17 21:22 Dose: 20 mg Bisacodyl (Dulcolax) 10 mg [place] DAILYPRN PRN PRN Reason: Constipation Last Admin: 12/01/17 10:35 Dose: 10 mg Hydralazine HCl (Apresoline) 10 mg SLOW IVP Q4H PRN PRN Reason: Systolic BP > 160 Labetalol HCl (Normodyne) 10 mg SLOW IVP Q4H PRN PRN Reason: Systolic BP > 160 Last Admin: 12/03/17 02:11 Dose: 10 mg Metoclopramide HCl (Reglan) 5 mg IVP Q4H PRN PRN Reason: Nausea Last Admin: 11/24/17 17:41 Dose: 5 mg Mineral Oil/White Petrolatum (Eucerin Cream) 0 gm TOP BIDPRN PRN PRN Reason: Dry Skin Ondansetron HCl (Zofran) 4 mg IVP Q6H PRN PRN Reason: Nausea/Vomiting Pantoprazole Sodium (Protonix) 40 mg PER TUBE DAILY [facility] Last Admin: 12/03/17 09:03 Dose: 40 mg Sodium Chloride (Flush - Normal Saline) 10 ml IVF Q12HR [facility] Last Admin: 12/03/17 21:22 Dose: 10 ml Sodium Chloride (Flush - Normal Saline) 10 ml IVF PRN PRN PRN Reason: Saline Flush Trimethoprim/Sulfamethoxazole (Bactrim Ds) 1 tab PO BID [facility] Stop: 12/10/17 09:01 Last Admin: 12/03/17 21:22 Dose: 1 tab
[2017-12-04] MEDS: Amlodipine 5 MG TAB PER TUBE SCH ×3 (08:31→20:50)
[2017-12-04] MEDS: Sulfameth/Trimethoprim DS 800-160mg TAB PO SCH ×2 (08:32→20:47)
[2017-12-04] MEDS: Pantoprazole 40 MG GRANULES PACKET PER TUBE SCH (08:32)
--- NOTE | 2017-12-04 11:11 | PRG ---
DATE OF SERVICE: 12/04/2017 SERVICE: Pulmonary Medicine INTERVAL HISTORY: The patient is doing fine from a respiratory standpoint. Neurologically, she has not made much progress. She was able to sit on the side of the bed with significant assistance from physical therapy yesterday. Otherwise, there has been no interval change to her condition. She azeem ot provide any additional elements of the history. No overnight events were noted. PHYSICAL EXAMINATION: VITAL SIGNS: Afebrile, pulse 98, blood pressure 119/86, respirations 13, saturation 100% via T-colla r with 20% FiO2. HEENT: Normocephalic, atraumatic. Sclerae are white, conjunctivae pink. Oral mucosa is moist witho ut lesions. Tracheostomy is clean, dry, and intact. HEART: Normal rate, regular. ABDOMEN: Soft, nontender, nondistended. Bowel sounds are positive. MUSCULOSKELETAL: No cyanosis or clubbing. There is trace pitting in the bilateral lower extremities . NEUROLOGIC: She has a fairly dense right-sided contraction of the right upper and right lower extrem ity. She has no spontaneous movement in that side. She spontaneously moves her left upper and left lower extremity. She has facial asymmetry. She is not following any commands. ASSESSMENT: 1. Cerebrovascular accident of the left middle cerebral artery, status post t-PA with hemorrhagic co nversion, post-craniectomy. 2. Hypertension. 3. Chronic kidney disease, stage 3. 4. Tracheobronchitis secondary to methicillin-resistant Staphylococcus aureus. DISCUSSION, AND PLAN: We will continue her antibiotics for a total duration of 10 days. I will repe at laboratories tomorrow morning. At this point, the only thing we are waiting on is placement for t ransition of the patient from the hospital. Pulmonary will continue to follow in this location.
--- NOTE | 2017-12-04 14:58 | PRG ---
DATE OF SERVICE: 12/04/2017 SUBJECTIVE: The patient is seen and examined at the bedside. She is not very responsive. She does not follow my commands. She does not talk to me. Her eyes are deviated to the left. OBJECTIVE: VITAL SIGNS: Her blood pressure is 136/80, pulse is 107, temperature is 98.3, respiratory rate is 14 , O2 saturation is 100% on trach collar. GENERAL: She does not follow commands. She is not verbal. LUNGS: Breath sounds diminished at both bases. HEART: S1, S2, somewhat irregular. No S3, no S4. ABDOMEN: Soft. PEG tube in place. EXTREMITIES: No clubbing, cyanosis or edema. NEUROLOGIC: As I said above, she is not verbal. She has dense right-sided contracture of the right upper and right lower extremity. IMPRESSION: 1. Cerebrovascular accident of the left middle cerebral artery, status post TPA with hemorrhagic con version, status post craniectomy. 2. Tracheobronchitis caused by methicillin-resistant Staph aureus. 3. Hypertension. 4. Chronic renal failure. 5. Positive for cannabis use. 6. Hyponatremia, improved. PLAN: We are going to continue her care until she is found placement and thus Pulmonary recommended she will stay on her antibiotic for a total duration of 10 days.
[2017-12-04] MEDS: Atorvastatin Calcium 20 MG TAB PO SCH (20:47)
[2017-12-05] MEDS: Sulfameth/Trimethoprim DS 800-160mg TAB PO SCH ×2 (09:40→23:40)
[2017-12-05] MEDS: Amlodipine 5 MG TAB PER TUBE SCH ×2 (09:41→23:42)
[2017-12-05] MEDS: Pantoprazole 40 MG GRANULES PACKET PER TUBE SCH (09:41)
--- NOTE | 2017-12-05 14:16 | PRG ---
DATE OF SERVICE: 12/05/2017 SERVICE: Pulmonary Medicine INTERVAL HISTORY: The patient is doing fine from a respiratory standpoint. She continues to have se cretions in the back of her throat. She requires suctioning through the tracheostomy tube. That [place] said, there were no significant overnight events. The patient cannot provide additional elements of the history because of static encephalopathy. PHYSICAL EXAMINATION: VITAL SIGNS: Afebrile, pulse 96, blood pressure 103/84, respirations 15, saturation 100% via T-colla r with 20% FiO2. HEENT: Normocephalic, atraumatic. Sclerae are white, conjunctivae pink. Oral mucosa is moist witho ut lesions. LUNGS: Rhonchi are present throughout bilateral lung calderon. There is no prolonged expiratory phase or wheezing present. HEART: Normal rate, regular. ABDOMEN: Soft, nontender, nondistended. Bowel sounds are positive. MUSCULOSKELETAL: No cyanosis or clubbing. No pitting in the bilateral lower extremities. LABORATORY DATA: WBC 14.0, hemoglobin 9.2, platelets 427,000. INR 1.0. Creatinine 1.18. Tracheal aspirate is growing Proteus mirabilis, and methicillin-resistant Staphylococcus aureus. ASSESSMENT: 1. Cerebrovascular accident of the left middle cerebral artery distribution, status post t-PA with h emorrhagic conversion, status post-craniectomy. 2. Hypertension. 3. Chronic kidney disease, stage 3. 4. Tracheobronchitis secondary to Proteus and methicillin-resistant Staphylococcus aureus. DISCUSSION AND PLAN: We will continue her antibiotics, and other supportive measures. The patient s eems to be getting a little dehydrated. As such, we will increase her free water. We will repeat la boratories in the morning. Pulmonary Critical Care will continue to follow along while she remains i n this location, but from my perspective, she is stable for transition out of the hospital to a care facility.
--- NOTE | 2017-12-05 16:00 | PDOC.PN ---
- Subjective Encounter Start Date: 12/05/17 Encounter Start Time: 15:58 Subjective: nsg notes rev, sushila ovn -: pt somnolent, trach in place - Objective Resuscitation Status: Resuscitation Status FULL:Full Resuscitation Vital Signs & Weight: Vital Signs (12 hours) Temp Pulse Resp BP BP Pulse Ox 12/05/17 13:30 96 20 97 12/05/17 11:23 98.0 F 120 H 15 103/84 100 12/05/17 09:41 110 H 127/70 12/05/17 08:00 98.0 F 97 21 H 100 12/05/17 07:33 98.0 F 97 21 H 103/69 100 12/05/17 07:18 100 12/05/17 07:16 90 20 100 12/05/17 04:00 98.4 F 97 18 100/54 L 100 Weight Admit Weight 168 lb 3.392 oz Weight 158 lb 14.4 oz Most Recent Monitor Data Heart Rate from ECG 102 NIBP 124/85 NIBP BP-Mean 96 Respiration from ECG 18 SpO2 100 I&O: 12/04/17 12/05/17 12/06/17 06:59 06:59 06:59 Intake Total 162 1960 60 Output Total 240 950 Balance -78 1010 60 Result Diagrams: 12/03/17 03:58 12/03/17 03:58 Phys Exam - Physical Examination Constitutional: NAD lying in hospital bed HEENT: moist MMs, sclera anicteric Respiratory: no wheezing, no rales, no rhonchi limited anterior exam Cardiovascular: RRR, no significant murmur, no rub Gastrointestinal: soft, non-tender, no distention, positive bowel sounds Neurological: moves all 4 limbs Dx/Plan - Plan 1. 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 Acue hypoxic resp failure s/p trach/PEG Cont Nebs as needed 3. HTN Cont Amlodipine at current dose - add holding parameters. 4. Hyponatremia - improving AM labs, Avoid diuretics 5. Acute Bronchitis - MRSA Cont Bactrim 6. CKD 2 Cannabis abuse - stable, no change 7. DVT prophylaxis with SCDs - Not cleared for SQ Heparin per NSG 8. GI prophylaxis Stable for transfer to [facility]; pending approval process otherwise, no change in active management at this point in time Review of Systems - Medications/Allergies Allergies/Adverse Reactions: Allergies Allergy/AdvReac Type Severity Reaction Status Date / Time No Known Drug Allergies Allergy Verified 11/16/17 03:04 Medications: Current Medications Acetaminophen (Tylenol) 650 mg [place] Q6H PRN PRN Reason: Headache/Fever or Pain Last Admin: 11/21/17 12:00 Dose: 650 mg Albuterol Sulfate (Albuterol Sulfate) 1.25 mg NEB Q4H PRN PRN Reason: Wheezing Albuterol/Ipratropium (Duoneb) 3 ml NEB [id number] [facility] Last Admin: 12/05/17 13:30 Dose: 3 ml Alprazolam (Xanax) 0.5 mg PO TIDPRN PRN PRN Reason: Anxiety/Agitation Amlodipine Besylate (Norvasc) 5 mg PER TUBE BID [facility] Last Admin: 12/05/17 09:41 Dose: 5 mg Artificial Tears (Tears Renewed 15ml Bottle) 0 drop EA EYE PRN PRN PRN Reason: Dry Eyes Atorvastatin Calcium (Lipitor) 20 mg PO HS [facility] Last Admin: 12/04/17 20:47 Dose: 20 mg Bisacodyl (Dulcolax) 10 mg [place] DAILYPRN PRN PRN Reason: Constipation Last Admin: 12/01/17 10:35 Dose: 10 mg Hydralazine HCl (Apresoline) 10 mg SLOW IVP Q4H PRN PRN Reason: Systolic BP > 160 Labetalol HCl (Normodyne) 10 mg SLOW IVP Q4H PRN PRN Reason: Systolic BP > 160 Last Admin: 12/03/17 02:11 Dose: 10 mg Metoclopramide HCl (Reglan) 5 mg IVP Q4H PRN PRN Reason: Nausea Last Admin: 11/24/17 17:41 Dose: 5 mg Mineral Oil/White Petrolatum (Eucerin Cream) 0 gm TOP BIDPRN PRN PRN Reason: Dry Skin Ondansetron HCl (Zofran) 4 mg IVP Q6H PRN PRN Reason: Nausea/Vomiting Pantoprazole Sodium (Protonix) 40 mg PER TUBE DAILY [facility] Last Admin: 12/05/17 09:41 Dose: 40 mg Sodium Chloride (Flush - Normal Saline) 10 ml IVF Q12HR [facility] Last Admin: 12/05/17 09:41 Dose: 10 ml Sodium Chloride (Flush - Normal Saline) 10 ml IVF PRN PRN PRN Reason: Saline Flush Trimethoprim/Sulfamethoxazole (Bactrim Ds) 1 tab PO BID [facility] Stop: 12/10/17 09:01 Last Admin: 12/05/17 09:40 Dose: 1 tab
[2017-12-05] MEDS: Atorvastatin Calcium 20 MG TAB PO SCH (23:40)
[2017-12-06 05:43] LABS: #Eosinphils 0.1 thou/uL (0.0-0.7); #Lymphocytes 1.3 thou/uL (1.20-3.40); #Monocytes 0.7 thou/uL (0.11-0.59); #Neutrophils 9.8 thou/uL (1.40-6.50); %Basophils 0.4 % (0.0-1.0); %Eosinophils 0.5 % (0.0-10.0); %Lymphocytes 10.8 % (21.0-51.0); %Monocytes 5.6 % (0.0-10.0); %Neutrophils 82.7 % (42.0-75.0); Hemoglobin 9.8 g/dL (12.0-16.0); Mean Corpuscular Hemoglobin 29.9 pg (27.0-31.0); Mean Corpuscular Volume 93.6 fL (78.0-98.0); Mean Platelet Volume 7.3 fL (7.4-10.4); Platelet Count 450 thou/uL (130-400); RBC Distribution Width 13.4 % (11.5-14.5); Red Blood Cell (RBC) Count 3.26 mill/uL (4.20-5.40); White Blood Cell (WBC) Count 11.8 thou/uL (4.8-10.8)
[2017-12-06 05:53] LABS: Anion Gap 15 mmol/L (10-20); BUN (Urea Nitrogen) 50 mg/dL (9.8-20.1); Calc. Creatinine Clearance 38 mL/min (70-130); Calcium 10.4 mg/dL (7.8-10.44); Carbon Dioxide 26 mmol/L (23-31); Chloride 103 mmol/L (98-107); Estimated GFR-MDRD 37; Glucose 122 mg/dL (80-115); Magnesium 2.1 mg/dL (1.6-2.6); Phosphorus 4.4 mg/dL (2.3-4.7); Potassium 5.4 mmol/L (3.5-5.1); Sodium 139 mmol/L (136-145)
[2017-12-06] MEDS: Amlodipine 5 MG TAB PER TUBE SCH ×2 (09:59→21:42)
[2017-12-06] MEDS: Pantoprazole 40 MG GRANULES PACKET PER TUBE SCH (09:59)
[2017-12-06] MEDS: Sulfameth/Trimethoprim DS 800-160mg TAB PO SCH (09:59)
[2017-12-06] MEDS: Acetaminophen 650 MG Suppository PR PRN (10:08)
--- NOTE | 2017-12-06 11:53 | PDOC.PN ---
- Subjective Encounter Start Date: 12/06/17 Encounter Start Time: 11:51 -: non-verbal Subjective: arousable, does not converse with me - Objective Resuscitation Status: Resuscitation Status FULL:Full Resuscitation Vital Signs & Weight: Vital Signs (12 hours) Temp Pulse Resp BP BP Pulse Ox 12/06/17 09:59 112 H 154/94 H 12/06/17 09:03 98 12/06/17 07:34 112 H 20 98 12/06/17 00:32 97 12/06/17 00:06 115 H 18 97 12/06/17 00:05 99.1 F 119 H 20 124/68 97 Weight Admit Weight 168 lb 3.392 oz Weight 160 lb 8 oz Most Recent Monitor Data Heart Rate from ECG 102 NIBP 124/85 NIBP BP-Mean 96 Respiration from ECG 18 SpO2 100 I&O: 12/05/17 12/06/17 12/07/17 06:59 06:59 06:59 Intake Total 1960 895 970 Output Total 950 650 600 Balance 1010 245 370 Result Diagrams: 12/06/17 05:21 12/06/17 05:21 Additional Labs: Accuchecks 12/06/17 05:01 POC Glucose 134 H Phys Exam - Physical Examination Constitutional: NAD lying in hospital bed HEENT: moist MMs trach collar in place Respiratory: no wheezing, no rales, no rhonchi, clear to auscultation bilateral general coarseness - limited anterior exam Cardiovascular: RRR, no significant murmur, no rub Gastrointestinal: positive bowel sounds Musculoskeletal: no edema Dx/Plan - Plan 1. Acute CVA s/p TPA with intracerebral hemorrhage s/p Craniotomy No antiplatelets or anticoag due to intracranial bleed Cont supportive care Cont Statins unable to care for self with trach collar 2. Acue hypoxic resp failure s/p trach/PEG Cont Nebs as needed 3. HTN Cont Amlodipine at current dose - add holding parameters. 4. Hyponatremia - improving AM labs, Avoid diuretics 5. Acute Bronchitis - MRSA Cont Bactrim 6. CKD 2 Cannabis abuse - stable, no change 7. DVT prophylaxis with SCDs - Not cleared for SQ Heparin per NSG 8. GI prophylaxis Stable for transfer to [facility]; pending approval process - requested physician appeal process otherwise, no change in active management at this point in time Review of Systems - Medications/Allergies Allergies/Adverse Reactions: Allergies Allergy/AdvReac Type Severity Reaction Status Date / Time No Known Drug Allergies Allergy Verified 11/16/17 03:04 Medications: Current Medications Acetaminophen (Tylenol) 650 mg [place] Q6H PRN PRN Reason: Headache/Fever or Pain Last Admin: 12/06/17 10:08 Dose: 650 mg Albuterol Sulfate (Albuterol Sulfate) 1.25 mg NEB Q4H PRN PRN Reason: Wheezing Albuterol/Ipratropium (Duoneb) 3 ml NEB [id number] [facility] Last Admin: 12/06/17 07:34 Dose: 3 ml Alprazolam (Xanax) 0.5 mg PO TIDPRN PRN PRN Reason: Anxiety/Agitation Amlodipine Besylate (Norvasc) 5 mg PER TUBE BID [facility] Last Admin: 12/06/17 09:59 Dose: 5 mg Artificial Tears (Tears Renewed 15ml Bottle) 0 drop EA EYE PRN PRN PRN Reason: Dry Eyes Atorvastatin Calcium (Lipitor) 20 mg PO HS [facility] Last Admin: 12/05/17 23:40 Dose: 20 mg Bisacodyl (Dulcolax) 10 mg [place] DAILYPRN PRN PRN Reason: Constipation Last Admin: 12/01/17 10:35 Dose: 10 mg Hydralazine HCl (Apresoline) 10 mg SLOW IVP Q4H PRN PRN Reason: Systolic BP > 160 Labetalol HCl (Normodyne) 10 mg SLOW IVP Q4H PRN PRN Reason: Systolic BP > 160 Last Admin: 12/03/17 02:11 Dose: 10 mg Metoclopramide HCl (Reglan) 5 mg IVP Q4H PRN PRN Reason: Nausea Last Admin: 11/24/17 17:41 Dose: 5 mg Mineral Oil/White Petrolatum (Eucerin Cream) 0 gm TOP BIDPRN PRN PRN Reason: Dry Skin Ondansetron HCl (Zofran) 4 mg IVP Q6H PRN PRN Reason: Nausea/Vomiting Pantoprazole Sodium (Protonix) 40 mg PER TUBE DAILY [facility] Last Admin: 12/06/17 09:59 Dose: 40 mg Sodium Chloride (Flush - Normal Saline) 10 ml IVF Q12HR [facility] Last Admin: 12/06/17 10:00 Dose: 10 ml Sodium Chloride (Flush - Normal Saline) 10 ml IVF PRN PRN PRN Reason: Saline Flush Trimethoprim/Sulfamethoxazole (Bactrim Ds) 1 tab PO BID [facility] Stop: 12/10/17 09:01 Last Admin: 12/06/17 09:59 Dose: 1 tab
[2017-12-06 12:55] LABS: Anion Gap 15 mmol/L (10-20); BUN (Urea Nitrogen) 54 mg/dL (9.8-20.1); Calc. Creatinine Clearance 38 mL/min (70-130); Calcium 10.3 mg/dL (7.8-10.44); Carbon Dioxide 25 mmol/L (23-31); Chloride 103 mmol/L (98-107); Estimated GFR-MDRD 37; Glucose 104 mg/dL (80-115); Potassium 5.3 mmol/L (3.5-5.1); Sodium 138 mmol/L (136-145)
--- NOTE | 2017-12-06 14:59 | RAD ---
CHEST ONE VIEW: HISTORY: Chest pain. Pneumonia. COMPARISON: 11/28/2017 FINDINGS: The cardiac silhouette is magnified by projection. The pulmonary vasculature is unremarkable. Mild bibasilar atelectasis. Mediastinum is midline, allowing for slight rightward rotation of the patient . Tracheostomy appliance is in place. No evidence of pneumothorax. IMPRESSION: Mild bibasilar atelectasis. No active cardiopulmonary abnormalities are reliably demonstrated. POS: NATALIIA
[2017-12-06 15:30] LABS: Troponin I 0.016 ng/mL (< 0.028)
[2017-12-06] MEDS ORDERED: Linezolid 600 MG TAB PO SCH (15:45)
[2017-12-06] MEDS: Sodium Chloride 0.9% 1,000 ML IV SCH (16:05)
[2017-12-06 18:33] LABS: Bilirubin Negative (Negative); Blood, Urine Moderate (Negative); Clarity CLEAR (Clear); Glucose, Urine (Dipstick) Negative (Negative); Leukocyte Small (Negative); Nitrite Negative (Negative); Protein, Urine (Dipstick) Negative (Neg-Trace); Specific Gravity, Urine 1.014 (1.002-1.036)
[2017-12-06 18:35] LABS: Bacteria/HPF None Seen HPF (None Seen); Hyaline Casts/LPF 7-10 HYALINE CAST LPF (0-3 Hyaline); Pathc Cast-AUWi Flag 1.88 (0-2.49); RBC/HPF 21-50 HPF (0-3); Squamous Epithelial 0-3 HPF (0-3)
[2017-12-06] MEDS: Linezolid 600 MG TAB PO SCH (21:42)
[2017-12-06] MEDS: Atorvastatin Calcium 20 MG TAB PO SCH (21:43)
[2017-12-07] MEDS: Sodium Chloride 0.9% 1,000 ML IV SCH ×3 (00:48→23:23)
[2017-12-07 05:31] LABS: Anion Gap 14 mmol/L (10-20); BUN (Urea Nitrogen) 53 mg/dL (9.8-20.1); Calc. Creatinine Clearance 37 mL/min (70-130); Calcium 9.8 mg/dL (7.8-10.44); Carbon Dioxide 24 mmol/L (23-31); Chloride 104 mmol/L (98-107); Estimated GFR-MDRD 35; Glucose 105 mg/dL (80-115); Potassium 5.2 mmol/L (3.5-5.1); Sodium 137 mmol/L (136-145)
[2017-12-07] MEDS: Amlodipine 5 MG TAB PER TUBE SCH ×2 (08:24→21:06)
[2017-12-07] MEDS: Linezolid 600 MG TAB PO SCH ×2 (08:25→21:06)
[2017-12-07] MEDS: Pantoprazole 40 MG GRANULES PACKET PER TUBE SCH (08:25)
[2017-12-07 13:08] VITALS: BMI 26.4
[2017-12-07] MEDS: Bisacodyl 10 MG SUPP PR PRN (14:36)
--- NOTE | 2017-12-07 14:38 | PRG ---
DATE OF SERVICE: 12/07/2017 SERVICE: Pulmonary Medicine. INTERVAL HISTORY: The patient is doing fine from a respiratory standpoint. She remains on oxygen. She can register any specific complaints. Nursing reports no overnight events. PHYSICAL EXAMINATION: VITAL SIGNS: Afebrile, pulse 100, blood pressure 136/75, respirations 20, and saturation 100% on 5 l iters via T-collar. HEENT: Normocephalic, atraumatic. Sclerae are white, conjunctivae pink. Oral and nasal mucosa is m oist without lesions. Tracheostomy is in place. LUNGS: Decent air entry with rhonchi present. There is no prolonged expiratory phase. HEART: Normal rate, regular. ABDOMEN: Soft, nontender, nondistended. PEG tube is in place. Bowel sounds are present. MUSCULOSKELETAL: No cyanosis or clubbing. No pitting in the bilateral lower extremities. LABORATORY DATA: Potassium 5.2, creatinine 1.75 and roughly stable. Basic metabolic profile is othe rwise unremarkable. Blood cultures x2 from the 9th are unremarkable to date. IMAGING DATA: Chest x-ray demonstrates mild bibasilar atelectasis with no obvious abnormalities iden tified. ASSESSMENT: 1. Cerebrovascular accident of the left middle cerebral artery distribution, status post TPA with he morrhagic conversion, status post craniectomy. 2. Hypertension. 3. Chronic kidney disease, stage 3. 4. Tracheobronchitis secondary to Proteus and methicillin-resistant staphylococcus aureus. DISCUSSION AND PLAN: We will continue our antibiotics and other supportive measures. Her creatinine has peaked and hopefully will start to slowly recover. From my perspective, she is stable for trans ition out of the hospital. Pulmonary will continue to follow, intermittently while she remains in ho use.
[2017-12-07] MEDS: Atorvastatin Calcium 20 MG TAB PO SCH (21:06)
--- NOTE | 2017-12-07 21:18 | PDOC.PN ---
- Subjective Encounter Start Date: 12/07/17 Encounter Start Time: 20:00 Subjective: nsg notes rev, sushila ovn, no new issues ovn - Objective Resuscitation Status: Resuscitation Status FULL:Full Resuscitation Vital Signs & Weight: Vital Signs (12 hours) Temp Pulse Resp BP BP Pulse Ox 12/07/17 21:06 105 H 97/68 12/07/17 18:50 89 20 97 12/07/17 16:16 101 H 109/58 L 12/07/17 15:27 91 85/55 L 12/07/17 14:20 98.6 F 105 H 24 H 81/58 L 98 12/07/17 12:00 110 H 20 96 12/07/17 11:46 98.2 F 100 20 136/75 100 Weight Admit Weight 168 lb 3.392 oz Weight 164 lb 1.6 oz Most Recent Monitor Data Heart Rate from ECG 102 NIBP 124/85 NIBP BP-Mean 96 Respiration from ECG 18 SpO2 100 I&O: 12/06/17 12/07/17 12/08/17 06:59 06:59 06:59 Intake Total 895 3661 844 Output Total 650 2095 Balance 245 1566 844 Result Diagrams: 12/06/17 05:21 12/07/17 04:57 Dx/Plan - Plan 1. Acute CVA s/p TPA with intracerebral hemorrhage s/p Craniotomy No antiplatelets or anticoag due to intracranial bleed Cont supportive care, Statins unable to care for self with trach collar Initiated physician appeals process for placement on 12/06, awaiting response 2. Acue hypoxic resp failure s/p trach/PEG apprec pulm c/s continue with abx for tracheobronchitis MRSA 3. HTN Cont Amlodipine at current dose - add holding parameters. 4. Hyponatremia - improving AM labs, Avoid diuretics 5. Acute Bronchitis - MRSA Cont linezolid 6. CKD 2 continued reasonable UOP follow renal function Cannabis abuse - stable, no change 7. DVT prophylaxis with SCDs - Not cleared for SQ Heparin per NSG 8. GI prophylaxis Stable for transfer to [facility]; pending approval process - requested physician appeal process otherwise, no change in active management at this point in time Review of Systems - Medications/Allergies Allergies/Adverse Reactions: Allergies Allergy/AdvReac Type Severity Reaction Status Date / Time No Known Drug Allergies Allergy Verified 11/16/17 03:04 Medications: Current Medications Acetaminophen (Tylenol) 650 mg [place] Q6H PRN PRN Reason: Headache/Fever or Pain Last Admin: 12/06/17 10:08 Dose: 650 mg Albuterol Sulfate (Albuterol Sulfate) 1.25 mg NEB Q4H PRN PRN Reason: Wheezing Albuterol/Ipratropium (Duoneb) 3 ml NEB [id number] [facility] Last Admin: 12/07/17 18:50 Dose: 3 ml Alprazolam (Xanax) 0.5 mg PO TIDPRN PRN PRN Reason: Anxiety/Agitation Amlodipine Besylate (Norvasc) 5 mg PER TUBE BID [facility] Last Admin: 12/07/17 21:06 Dose: 5 mg Artificial Tears (Tears Renewed 15ml Bottle) 0 drop EA EYE PRN PRN PRN Reason: Dry Eyes Atorvastatin Calcium (Lipitor) 20 mg PO HS [facility] Last Admin: 12/07/17 21:06 Dose: 20 mg Bisacodyl (Dulcolax) 10 mg [place] DAILYPRN PRN PRN Reason: Constipation Last Admin: 12/07/17 14:36 Dose: 10 mg Hydralazine HCl (Apresoline) 10 mg SLOW IVP Q4H PRN PRN Reason: Systolic BP > 160/HR < 60 Sodium Chloride (Normal Saline 0.9%) 1,000 mls @ 70 mls/hr IV .[id number] [facility] Last Admin: 12/07/17 07:34 Dose: 1,000 mls Labetalol HCl (Normodyne) 10 mg SLOW IVP Q4H PRN PRN Reason: Systolic BP > 160/HR >=60 Last Admin: 12/03/17 02:11 Dose: 10 mg Linezolid (Zyvox) 600 mg PO Q12HR [facility] Stop: 12/09/17 21:01 Last Admin: 12/07/17 21:06 Dose: 600 mg Metoclopramide HCl (Reglan) 5 mg IVP Q4H PRN PRN Reason: Nausea Last Admin: 11/24/17 17:41 Dose: 5 mg Mineral Oil/White Petrolatum (Eucerin Cream) 0 gm TOP BIDPRN PRN PRN Reason: Dry Skin Ondansetron HCl (Zofran) 4 mg IVP Q6H PRN PRN Reason: Nausea/Vomiting Pantoprazole Sodium (Protonix) 40 mg PER TUBE DAILY [facility] Last Admin: 12/07/17 08:25 Dose: 40 mg Sodium Chloride (Flush - Normal Saline) 10 ml IVF Q12HR [facility] Last Admin: 12/07/17 21:15 Dose: Not Given Sodium Chloride (Flush - Normal Saline) 10 ml IVF PRN PRN PRN Reason: Saline Flush
[2017-12-07] MEDS ORDERED: Sodium Chloride 0.9% 250 ML IV SCH (22:45)
[2017-12-08 05:35] LABS: Anion Gap 15 mmol/L (10-20); BUN (Urea Nitrogen) 52 mg/dL (9.8-20.1); Calc. Creatinine Clearance 43 mL/min (70-130); Calcium 9.8 mg/dL (7.8-10.44); Carbon Dioxide 23 mmol/L (23-31); Chloride 106 mmol/L (98-107); Estimated GFR-MDRD 41; Glucose 104 mg/dL (80-115); Potassium 4.8 mmol/L (3.5-5.1); Sodium 139 mmol/L (136-145)
[2017-12-08] MEDS ORDERED: Amlodipine 5 MG TAB PO SCH (09:00)
[2017-12-08] MEDS: Linezolid 600 MG TAB PO SCH (09:21)
[2017-12-08] MEDS: Pantoprazole 40 MG GRANULES PACKET PER TUBE SCH (09:21)
[2017-12-08] MEDS ORDERED: Scopolamine 1.5 mg/72 hour Patch TD SCH (11:15)
[2017-12-08 11:52] VITALS: TEMP 98.9
[2017-12-08] MEDS: Bisacodyl 10 MG SUPP PR PRN (12:21)
--- NOTE | 2017-12-08 13:59 | PRG ---
DATE OF SERVICE: 12/08/2017 SUBJECTIVE: The patient cannot communicate. She has a trach and PEG tube. OBJECTIVE: VITAL SIGNS: On exam, temperature is 97.9, pulse 107, respirations 20, O2 sat 100%, blood pressure 1 11/69. HEENT: Unremarkable. NECK: Trach with copious secretions. LUNGS: Clear. CARDIAC: S1 and S2, regular. ABDOMEN: Soft. EXTREMITIES: No edema. LABORATORY DATA: Sodium 139, potassium 4.8, chloride 106, CO2 of 23, BUN 52, creatinine 1.5, glucose 104. ASSESSMENT: 1. Status post cerebrovascular accident with left MCA distribution infarct. She had TPA with hemorr hagic conversion. 2. Status post craniectomy. 3. Hypertension. 4. Chronic kidney disease. 5. Tracheobronchitis. PLAN: She is continuing on linezolid. She appears to be stable. She would probably benefit from a scopolamine patch given the extent of her secretions.
[2017-12-08 15:55] VITALS: BP 104/56
== END 2017-12-08 17:02 | DRG 3 ==
LOC: ERS 00:21 → CCU 02:22 → IMCU/EMU 12-03 10:23 → 2SE 12-05 19:15
PROVIDERS: ADMIT Hospitalist; ATTEND Hospitalist
PROC: 3E03317 Introduction of Other Thrombolytic into Peripheral Vein, Percutaneous Approach (ICD-10-PCS; principal; 2017-11-16)
PROC: 5A1955Z Respiratory Ventilation, Greater than 96 Consecutive Hours (ICD-10-PCS; 2017-11-16)
PROC: 0BH17EZ Insertion of Endotracheal Airway into Trachea, Via Natural or Artificial Opening (ICD-10-PCS; 2017-11-16)
PROC: 00C70ZZ Extirpation of Matter from Cerebral Hemisphere, Open Approach (ICD-10-PCS; 2017-11-17)
PROC: 0B113F4 Bypass Trachea to Cutaneous with Tracheostomy Device, Percutaneous Approach (ICD-10-PCS; 2017-11-27)
PROC: 0DH63UZ Insertion of Feeding Device into Stomach, Percutaneous Approach (ICD-10-PCS; 2017-11-27)
DX: I63.9 Cerebral infarction, unspecified (principal); G93.5 Compression of brain; I61.1 Nontraumatic intracerebral hemorrhage in hemisphere, cortical; G93.49 Other encephalopathy; J96.01 Acute respiratory failure with hypoxia; I69.354 Hemiplegia and hemiparesis following cerebral infarction affecting left non-dominant side; G91.1 Obstructive hydrocephalus; E87.1 Hypo-osmolality and hyponatremia; R29.719 NIHSS score 19; J20.9 Acute bronchitis, unspecified; B96.4 Proteus (mirabilis) (morganii) as the cause of diseases classified elsewhere; B95.62 Methicillin resistant Staphylococcus aureus infection as the cause of diseases classified elsewhere; E87.6 Hypokalemia; I12.9 Hypertensive chronic kidney disease with stage 1 through stage 4 chronic kidney disease, or unspecified chronic kidney disease; T45.615A Adverse effect of thrombolytic drugs, initial encounter; R79.89 Other specified abnormal findings of blood chemistry; N18.3 Chronic kidney disease, stage 3 (moderate); E78.5 Hyperlipidemia, unspecified; F17.210 Nicotine dependence, cigarettes, uncomplicated; Z91.19 Patient's noncompliance with other medical treatment and regimen
CPT/HCPCS: 31500; 36415; 36416; 51702; 70450; 70498; 70553; 71045; 80048; 80053; 80306; 81003; 81015; 82553; 82805; 83605; 83735; 83880; 84100; 84134; 84443; 84484; 85025; 85610; 85730; 87040; 87070; 87077; 87186; 87205; 89220; 93005; 93010; 93306; 94002; 94003; 94640; 96365; 96375; 96376; A4216; C1713; C9113; G8978-GP-CN; G8979-GP-CK; G8987-GO-CN; G8988-GO-CN; G8989-GO-CN; G8996-GN-CN; G8997-GN-CM; J0360; J0692; J2001; J2060; J2310; J2543; J2704; J2765; J2997; J3010; J3480; J3490; J7050; J7620

== ENCOUNTER 2021-03-07 13:41 | Emergency (ER) | payer OTHER ==
[~2021-03-07 13:41] MED LIST: GASTROGRAFIN 30 ML BOT ONE
[2021-03-07 16:43] LABS: #Eosinphils 0.1 thou/uL (0.0-0.7); #Lymphocytes 2.2 thou/uL (1.20-3.40); #Monocytes 0.5 thou/uL (0.11-0.59); #Neutrophils 4.2 thou/uL (1.40-6.50); %Basophils 0.3 % (0.0-1.0); %Eosinophils 1.7 % (0.0-10.0); %Monocytes 6.7 % (0.0-10.0); %Neutrophils 60.2 % (42.0-75.0); Hemoglobin 10.4 g/dL (12.0-16.0); Mean Corpuscular HGB CONC 30.6 g/dL (32.0-36.0); Mean Corpuscular Hemoglobin 24.2 pg (27.0-31.0); Mean Platelet Volume 9.7 fL (7.4-10.4); Platelet Count 203 thou/uL (130-400); RBC Distribution Width 17.2 % (11.5-14.5); Red Blood Cell (RBC) Count 4.31 mill/uL (4.20-5.40); White Blood Cell (WBC) Count 6.9 thou/uL (4.8-10.8)
[2021-03-07 17:08] LABS: ALT (SGPT) 14 U/L (8-55); AST (SGOT) 16 U/L (5-34); Albumin 3.8 g/dL (3.4-4.8); Alkaline Phosphatase 204 U/L (40-110); Anion Gap 12 mmol/L (10-20); BUN (Urea Nitrogen) 24 mg/dL (9.8-20.1); Bilirubin, Total 0.3 mg/dL (0.2-1.2); Calc. Creatinine Clearance 0 mL/min (70-130); Calcium 9.8 mg/dL (7.8-10.44); Carbon Dioxide 31 mmol/L (23-31); Chloride 103 mmol/L (98-107); Globulin 3.9 g/dL (2.4-3.5); Glucose 85 mg/dL (80-115); Protein, Total 7.7 g/dL (5.8-8.1); Sodium 142 mmol/L (136-145)
== END 2021-03-07 19:35 ==
LOC: ERS 13:41
DX: K94.23 Gastrostomy malfunction (principal); D64.9 Anemia, unspecified; I10 Essential (primary) hypertension; Z86.73 Personal history of transient ischemic attack (TIA), and cerebral infarction without residual deficits
CPT/HCPCS: 36415; 43762; 71045; 74018; 80053; 85025; Q9963